=== PATIENT | female | born 1980 | race Caucasian/White ===

== ENCOUNTER 2021-09-16 07:34 | Outpatient (CLI) | payer OTHER, SELFPAY ==
--- NOTE | ~2021-09-16 | US_ITS ---
EXAMINATION: US abdomen limited DATE: 09/16/2021 08:09 INDICATION: Elevated liver enzymes TECHNIQUE: Multiple grayscale and Doppler ultrasound images of the abdomen were obtained. COMPARISON: None available FINDINGS: Bowel gas obscures visualization of the pancreas. The liver demonstrates increased echogeni city, heterogenous echotexture, and decreased through transmission. No surface nodularity. Normal hep atopetal flow in the main portal vein. The gallbladder is normal with no abnormal wall thickening, pe richolecystic fluid or stones. The normal common bile duct measures 4 mm. There was no sonographic Mu rphy sign. IMPRESSION: 1. Diffuse hepatic steatosis. Reviewed, dictated and finalized at location B. AR RACER
== END 2021-09-16 07:35 | disposition home or self-care (01) ==
LOC: ANHIMG 07:37
PROVIDERS: Visit Provider Nurse Practitioner Adult Health
DX: R74.01 Elevation of levels of liver transaminase levels (principal); K76.0 Fatty (change of) liver, not elsewhere classified
CPT/HCPCS: 76705

== ENCOUNTER 2022-05-03 16:36 | Emergency (ER) | payer OTHER, SELFPAY ==
--- NOTE | ~2022-05-03 | XR_ITS ---
XR foot LT min 3V DATE: 05/03/2022 16:52 INDICATION: Dorsal foot pain following a fall 5 days ago TECHNIQUE: 3 views COMPARISON: 02/26/2011 the left foot FINDINGS: There is mild plantar and posterior calcaneal enthesopathy. No fracture, dislocation, periosteal reaction or bone destruction, joint space narrowing or erosive c hange is noted. IMPRESSION: Calcaneal enthesopathy Reviewed, dictated and finalized at location A. IMPRESSION: Calcaneal enthesopathy
--- NOTE | 2022-05-03 16:38 | ED.LOWEXIN ---
HPI - Extremity Injury (Lower) General Chief Complaint: Extremity Injury, Lower Stated Complaint: lt foot injury Time Seen by Provider: 05/03/22 16:38 Source: patient and RN notes reviewed History of Present Illness HPI Narrative: Patient is a 41-year-old female who presents to urgent care with complaints of left foot pain. Patient states that over the weekend she rolled her foot curb while wearing a flip-flop and is having pain in the top of her foot. Patient denies any past fracture at that site or at home. Patient has not taken anything [id number] for her pain prior to arrival. States that the pain exacerbates with weight-bearing and ambulation. No other acute complaints. No acute distress noted. Patient aware of the plan of care. Some parts of this dictation were generated by voice recognition software and may contain typographical and/or grammatical inaccuracies. Related Data Home Medications Medication Instructions Recorded Confirmed alprazolam 0.5 mg tablet (Xanax) 0.5 mg PO DAILY 08/17/21 02/07/22 cetirizine 10 mg tablet 10 mg PO DAILY PRN 08/17/21 02/07/22 fenofibrate 160 mg tablet 160 mg PO DAILY 02/07/22 02/07/22 lisinopril 10 mg tablet 10 mg PO DAILY 02/07/22 02/07/22 pioglitazone 30 mg tablet 30 mg PO DAILY 02/07/22 02/07/22 atorvastatin 20 mg tablet 20 mg PO 04/18/22 dapagliflozin 5 mg tablet (Farxiga) 5 mg PO 04/18/22 omega-3 acid ethyl esters 1 gram cap PO 04/18/22 capsule Allergies Allergy/AdvReac Type Severity Reaction Status Date / Time No Known Allergies Allergy Unverified 04/18/22 10:11 Review of Systems Review of Systems: CONSTITUTIONAL: Denies fever, chills, or sweats. EYES: Denies visual changes, redness, or discharge. ENT: Denies rhinorrhea, congestion, sore throat, or otalgia. CARDIOVASCULAR: Denies chest pain, palpitations, or edema. RESPIRATORY: Denies cough or dyspnea. GASTROINTESTINAL: Denies abdominal pain, nausea, vomiting, or diarrhea. GENITOURINARY: Denies dysuria or hematuria. SKIN: Denies rash or itching. MUSCULOSKELETAL: Reports of left foot pain NEUROLOGIC: Denies headache, numbness, or weakness. All other systems reviewed are negative, except as documented in HPI. [facility] Past Medical History Medical History Anxiety Depression Diabetes High blood cholesterol Hypertension Insomnia Obesity (BMI 30-39.9) Screening mammogram, encounter for Tachycardia Surgical History Surgical History H/O LEEP 09/07/05 History of colposcopy with cervical biopsy 10/31/02 History of placement of ear tubes as a child Family History Family History Father Diabetes mellitus Other Diabetes mellitus paternal aunt Breast cancer paternal aunt Ovary neoplasm maternal aunt Grandparent Breast cancer maternal grandmother Social History Social History Smoking packs per day: 1 Smoking cigarettes per day: 20.0 Smoking status: Current every day smoker Alcohol intake: never Substance use: current Substance use type: marijuana Other substance usage details: ocassional Additional living arrangements comments: single Gender identity (if verbalized by the patient): Female Sexual Orientation (if Verbalized by the Patient): Straight or Heterosexual Comments At the time of my signature, I reviewed and agree with the nursing past medical, surgical, social, and family history. There is no relevant family history pertinent to the patient complaint. Exam Narrative: GENERAL: This is a well-nourished, well-developed patient, in no apparent distress. HEAD: normocephalic, atraumatic. EYES: PERRL. Sclera clear/white. Vision is grossly intact. EARS: External ears normal NOSE: External nose normal with no obvious nasal disc
[2022-05-03 16:59] VITALS: BP 118/77; PULSE 88; RESP 18; TEMP 36.9; O2SAT 100
== END 2022-05-03 17:21 | disposition home or self-care (01) ==
PROVIDERS: Emergency Provider Nurse Practitioner Family; PCP Nurse Practitioner Adult Health
DX: M79.672 Pain in left foot (principal); F17.210 Nicotine dependence, cigarettes, uncomplicated; E11.9 Type 2 diabetes mellitus without complications; E78.00 Pure hypercholesterolemia, unspecified; I10 Essential (primary) hypertension; E66.9 Obesity, unspecified; Z68.34 Body mass index [BMI] 34.0-34.9, adult; F41.9 Anxiety disorder, unspecified
CPT/HCPCS: 73630; 99213; G0463

== ENCOUNTER 2022-05-11 13:50 | Outpatient (CLI) | payer OTHER, SELFPAY | END 2022-05-11 13:51 | disposition home or self-care (01) | LOC: ANHAUDASC 13:50 | PROVIDERS: PCP Nurse Practitioner Adult Health; Visit Provider Otolaryngology | DX: H91.93 Unspecified hearing loss, bilateral (principal); H93.13 Tinnitus, bilateral | CPT/HCPCS: 92557; 92567 ==

== ENCOUNTER 2023-09-12 11:08 | Outpatient (CLI) | payer OTHER, SELFPAY ==
[2023-09-12 13:08] LABS: Basophils Absolute Auto 0.2 K/mm3 (0.0-0.1); Eosinophils Absolute Auto 0.3 K/mm3 (0-0.3); Eosinophils Percent Auto 4.1 % (0-4.4); Hematocrit 50.8 % (37.0-47.0); Hemoglobin 16.1 g/dL (12.0-15.0); Immature Granulocyte Absolute 0.03 K/mm3 (0.00-0.031); Immature Granulocyte Percent A 0.4 % (0-0.5); Lymphocytes Percent Auto 30.5 % (18.3-44.2); Mean Corpuscular HGB Conc 31.7 g/dl (32-36); Mean Corpuscular Hemoglobin 29.5 pg (26-34); Mean Platelet Volume 11.5 fl (7.4-10.4); Monocytes Absolute Auto 0.5 K/mm3 (0.1-0.6); Monocytes Percent Auto 5.6 % (2.6-8.5); Neutrophils Absolute Auto 4.7 K/mm3 (1.3-6.7); Neutrophils Percent Auto 57.4 % (45.5-73.1); Platelet Count Result 247 k/mm3 (150-375); Red Blood Count 5.46 M/mm3 (4.2-5.4); Red Cell Distribution Width 13.2 % (11.5-14.5); White Blood Count 8.2 K/mm3 (4.5-10.0)
[2023-09-12 13:11] LABS: Alanine Aminotransferase 17 U/L (6-35); Albumin Level 4.5 g/dL (3.5-5.1); Alkaline Phosphatase 72 U/L (38-126); Anion Gap 6 mmol/L (8-16); Aspartate Amino Transferase 43 U/L (14-36); Bilirubin,Total 0.5 mg/dL (0.2-1.3); Blood Urea Nitrogen 12 mg/dL (7-17); Calcium 9.5 mg/dL (8.4-10.2); Carbon Dioxide 28 mmol/L (22-30); Chloride 105 mmol/L (98-107); Cholesterol 156 mg/dL (0-200); Estimated Glomerular Filt Rate > 60; Glucose 118 mg/dL (65-110); HDL Direct 30 mg/dL; Potassium 4.2 mmol/L (3.4-5.0); Sodium 139 mmol/L (137-145); Triglycerides 178 mg/dL (<150)
[2023-09-12 13:23] LABS: LDL Cholesterol Direct 104 mg/dL
[2023-09-12 13:52] LABS: Creatinine Urine 96.6 mg/dL
[2023-09-12 13:59] LABS: MALB Creatinine Ratio 13.7 mg/g (0-30); Microalbumin Urine Random 13.2 mg/L (0-16.7)
[2023-09-12 14:52] LABS: Hemoglobin A1C 6.1 % (<5.7)
== END 2023-09-12 11:09 | disposition home or self-care (01) ==
LOC: ANHGOSHLAB 11:09
PROVIDERS: PCP Emergency Medicine; Visit Provider Emergency Medicine
DX: E11.69 Type 2 diabetes mellitus with other specified complication (principal); E66.9 Obesity, unspecified; K76.0 Fatty (change of) liver, not elsewhere classified; R68.89 Other general symptoms and signs
CPT/HCPCS: 36415; 80053; 80061; 82043; 83036; 84443; 85025

== ENCOUNTER 2023-11-16 09:33 | Emergency (ER) | payer OTHER, SELFPAY ==
[2023-11-16] VITALS (8 sets, daily range): BP systolic 132–144; BP diastolic 61–86; PULSE 86–97; RESP 16–18; TEMP 36.1; O2SAT 95–100
--- NOTE | ~2023-11-16 | CT_ITS ---
EXAMINATION: CTA BRAIN/CAROTID DATE: 11/16/2023 16:18 INDICATION: Headache, dizziness and photophobia. TECHNIQUE: Computed tomographic angiography (CTA) of the head and neck was performed with 100 mL Omni paque-350 intravenous contrast. Multiplanar reconstructions and maximum intensity projection 3D-recon structions of the carotid arteries and of the intracranial arteries were created by the technologist on a separate workstation. Precontrast CT of the head was also obtained. Automated exposure control and iterative reconstruction technique were employed.The dose-length product was 1778.49 mGy-cm. COMPARISON: None. FINDINGS: Carotid arteries: Ectatic ascending thoracic aorta measuring up to 4.2 cm in maximal diameter. Normal caliber at the ar ch and pelvis/proximal descending thoracic aorta with no dissection or evident atherosclerotic plaque . There is 0% stenosis of the right and left carotid bulbs relative to normal distal artery lumen tee meter (NASCET criteria). Diffuse groundglass opacities in the visualized upper lungs likely related t o expiratory phase of imaging. Cervical soft tissues are unremarkable. Cervical spine is unremarkable aside from straightening of the normal cervical lordosis. Head: No acute intracranial hemorrhage, acute infarction or abnormal extra axial fluid collection. Ventricl es are normal and symmetric. No mass/mass effect. Mucosal thickening of bubbly mucus in the left sphe noid sinus. The orbits and mastoid air cells are normal. No abnormally enhancing brain lesions on pos tcontrast imaging. Intracranial arteries There is no hemodynamically significant stenosis in the vertebral, basilar and internal carotid arter ies. Vertebral arteries are codominant. There are no aneurysms identified. Both A1 and P1 segments a re patent. Cerebral arterial arborization appears symmetric. IMPRESSION: 1. 0% stenosis of the right and left carotid bulbs relative to normal distal artery lumen diameter (N ASCET criteria). 2. Normal brain and cerebral CT angiogram with no evident acute intracranial process, aneurysm or hem odynamically significant stenosis. 3. Mucosal thickening of bubbly mucus in the left sphenoid sinus which can be seen with acute sinusit is. Reviewed, dictated and finalized at location A. IMPRESSION: 1. 0% stenosis of the right and left carotid bulbs relative to normal distal ar darius lumen diameter (NASCET criteria). 2. Normal brain and cerebral CT angiogram with no evident acute intracranial pr ocess, aneurysm or hemodynamically significant stenosis. 3. Mucosal thickening of bubbly mucus in the left sphenoid sinus which can be s een with acute sinusitis.
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
[2023-11-16] MEDS: SODIUM CHLORIDE 0.9% IV 1,000 ML 999 ML IV CONT (11:15)
[2023-11-16] MEDS: diphenhydrAMINE HCl INJ 50 MG/ML VIAL 25 MG IV PUSH (11:15)
[2023-11-16] MEDS: METOCLOPRAMIDE HCL INJ 10 MG/2 ML VIAL IV PUSH (11:16)
[2023-11-16] MEDS: KETOROLAC 30 MG/ML VIAL (*BKC) IV PUSH (11:16)
[2023-11-16] MEDS: MECLIZINE HCL 25 MG TABLET PO (13:40)
[2023-11-16 16:04] LABS: Estimated CRCL calculation 104 ml/min; Estimated Glomerular Filt Rate > 60
== END 2023-11-16 17:21 | disposition home or self-care (01) ==
PROVIDERS: Emergency Provider Emergency Medicine; PCP Emergency Medicine
DX: R51.9 Headache, unspecified (principal); J32.9 Chronic sinusitis, unspecified; I10 Essential (primary) hypertension; E11.9 Type 2 diabetes mellitus without complications; E78.00 Pure hypercholesterolemia, unspecified; E66.9 Obesity, unspecified; Z68.37 Body mass index [BMI] 37.0-37.9, adult; M19.90 Unspecified osteoarthritis, unspecified site; F41.9 Anxiety disorder, unspecified; F17.210 Nicotine dependence, cigarettes, uncomplicated
CPT/HCPCS: 70496; 70498; 96361; 96374; 96375; 99284; A9270; J1200; J1885; J2765; J7030; Q9967

== ENCOUNTER 2024-02-19 10:04 | Emergency (ER) | payer SELFPAY ==
[2024-02-19] VITALS (9 sets, daily range): BP systolic 124–148; BP diastolic 81–84; PULSE 74–87; RESP 15–18; TEMP 36.1–37.2; O2SAT 96–100
--- NOTE | 2024-02-19 10:42 | ED.GIBLEED ---
HPI - GI Bleed General Chief complaint: GI Bleed Stated complaint: black stools Time Seen by Provider: 02/19/24 10:33 History of Present Illness HPI Narrative: Pt presents with epigastric abdominal pain and passing black stools for two days. Pt denies vomiting. Pt started new job and is in hot environment and feels like she is dehydrated. Pt has no Hx of PUD. Related Data Home Medications Medication Instructions Recorded Confirmed alprazolam 0.5 mg tablet (Xanax) 0.5 mg PO DAILY 08/17/21 11/07/23 cetirizine 10 mg tablet 10 mg PO DAILY PRN 08/17/21 11/07/23 fenofibrate 160 mg tablet 160 mg PO DAILY 02/07/22 11/07/23 pioglitazone 30 mg tablet 30 mg PO DAILY 02/07/22 11/07/23 atorvastatin 20 mg tablet 20 mg PO 04/18/22 11/07/23 dapagliflozin propanediol 5 mg 5 mg PO 04/18/22 11/07/23 tablet (Farxiga) atomoxetine 80 mg capsule 80 mg PO DAILY 05/03/23 11/07/23 (Strattera) fluoxetine 60 mg tablet 30 mg PO DAILY 05/03/23 11/07/23 cariprazine 1.5 mg capsule 1.5 mg PO DAILY 06/26/23 11/07/23 (Vraylar) bupropion HCl 100 mg tablet,12 hr mg PO 11/03/23 11/07/23 sustained-release olanzapine 5 mg disintegrating mg PO 11/03/23 11/07/23 tablet trazodone 150 mg tablet mg PO 11/03/23 11/07/23 Allergies Allergy/AdvReac Type Severity Reaction Status Date / Time No Known Allergies Allergy Verified 02/19/24 10:49 Review of Systems Review of Systems: All systems reviewed & are unremarkable except as noted in HPI and below PMFSH Past Medical History Medical History Anxiety Arthritis Depression Diabetes High blood cholesterol Hypertension Insomnia Obesity (BMI 30-39.9) Screening mammogram, encounter for Tachycardia Surgical History Surgical History H/O LEEP 09/07/05 History of colposcopy with cervical biopsy 10/31/02 History of placement of ear tubes as a child Family History Family History Father Diabetes mellitus Other Diabetes mellitus paternal aunt Breast cancer paternal aunt Ovary neoplasm maternal aunt Grandparent Breast cancer maternal grandmother Mother Asthma Social History Social History 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 Smoking packs per day: 1 Smoking cigarettes per day: 20.0 Smoking status: Current every day smoker Tobacco type: cigarettes Alcohol intake: never Substance use: current Substance use type: marijuana Other substance usage details: ocassional Do You Feel Safe in your Home?: Yes Lack of Transportation: No Lack of Food: Never True Current Housing: I Have Housing Concerned About Future Housing: No Difficulty Paying Gas/Electric Bills: No Difficulty Paying for Meds: No Currently Unemployed: No Education: High School Diploma/GED Difficulty w/ Childcare or Family Care: No Living arrangements: other Additional living arrangements comments: single Occupation/Education: unemployed Gender identity (if verbalized by the patient): Female Sexual Orientation (if Verbalized by the Patient): Straight or Heterosexual Spiritual care concerns: No Agree to blood products: No Exam Const: General: healthy appearing and no acute distress Nutritional Appearance: obese Orientation/consciousness: patient oriented x3 Limitations: no limitations Resp: Effort & Inspection: normal respiratory effort Auscultation: clear to auscultation bilaterally Cardio: Rate: regular rate Rhythm: regular rhythm GI: GI Palp: Yes Soft to palpation and Yes Tenderness to palpation present (GI) (epigastrum) Auscultation: normal bowel sounds Rectal Exam: normal sphincter tone Other: heme neg Skin: General skin exam: normal color Rashes: no rashes Wounds: no wounds Neuro: Genera
[2024-02-19] MEDS: SODIUM CHLORIDE 0.9% IV 1,000 ML 999 ML IV CONT (10:59)
[2024-02-19] MEDS: PANTOPRAZOLE SODIUM IV 40 MG VIAL IV PUSH (11:00)
[2024-02-19 11:09] LABS: Basophils Absolute Auto 0.2 K/mm3 (0.0-0.1); Basophils Percent Auto 2.2 % (0.2-1.2); Eosinophils Absolute Auto 0.3 K/mm3 (0-0.3); Eosinophils Percent Auto 4.2 % (0-4.4); Hematocrit 44.7 % (37.0-47.0); Immature Granulocyte Absolute 0.02 K/mm3 (0.00-0.031); Immature Granulocyte Percent A 0.3 % (0-0.5); Lymphocytes Absolute Auto 3.12 K/mm3 (0.9-3.2); Lymphocytes Percent Auto 43.5 % (18.3-44.2); Mean Corpuscular HGB Conc 33.6 g/dl (32-36); Mean Corpuscular Hemoglobin 30.7 pg (26-34); Mean Corpuscular Volume 91.6 fl (80-100); Mean Platelet Volume 10.9 fl (7.4-10.4); Monocytes Absolute Auto 0.4 K/mm3 (0.1-0.6); Monocytes Percent Auto 5.4 % (2.6-8.5); Neutrophils Absolute Auto 3.2 K/mm3 (1.3-6.7); Neutrophils Percent Auto 44.4 % (45.5-73.1); Platelet Count Result 201 k/mm3 (150-375); Red Blood Count 4.88 M/mm3 (4.2-5.4); Red Cell Distribution Width 12.8 % (11.5-14.5); White Blood Count 7.2 K/mm3 (4.5-10.0)
[2024-02-19 11:22] LABS: Prothrombin Time 13.5 Seconds (11.1-14.7)
[2024-02-19 11:23] LABS: Alanine Aminotransferase 22 U/L (6-35); Albumin Level 4.8 g/dL (3.5-5.1); Alkaline Phosphatase 73 U/L (38-126); Anion Gap 11 mmol/L (4-12); Aspartate Amino Transferase 28 U/L (14-36); Bilirubin,Total 0.3 mg/dL (0.2-1.3); Blood Urea Nitrogen 11 mg/dL (7-17); Calcium 9.5 mg/dL (8.4-10.2); Carbon Dioxide 25 mmol/L (22-30); Chloride 104 mmol/L (98-107); Estimated CRCL calculation 112 ml/min; Estimated Glomerular Filt Rate > 60; Glucose 94 mg/dL (65-110); Lipase 213 U/L (23-300); Magnesium 1.9 mg/dL (1.6-2.3); Partial Thromboplastin Time 24.7 Seconds (22.3-36.8); Potassium 3.6 mmol/L (3.4-5.0); Sodium 140 mmol/L (137-145)
== END 2024-02-19 12:54 | disposition home or self-care (01) ==
PROVIDERS: Emergency Provider Emergency Medicine; PCP Emergency Medicine
DX: K29.70 Gastritis, unspecified, without bleeding (principal); I10 Essential (primary) hypertension; E11.9 Type 2 diabetes mellitus without complications; E78.00 Pure hypercholesterolemia, unspecified; E66.9 Obesity, unspecified; Z68.36 Body mass index [BMI] 36.0-36.9, adult; M19.90 Unspecified osteoarthritis, unspecified site; F32.A Depression, unspecified; F41.9 Anxiety disorder, unspecified; F17.210 Nicotine dependence, cigarettes, uncomplicated; Z79.899 Other long term (current) drug therapy
CPT/HCPCS: 36415; 80053; 83690; 83735; 85025; 85610; 85730; 86850; 86900; 86901; 96361; 96374; 99284; J2470; J7030

== ENCOUNTER 2024-03-19 13:58 | Emergency (ER) | payer SELFPAY ==
--- NOTE | ~2024-03-19 | CT_ITS ---
EXAMINATION: CT abdomen pelvis w con DATE: 03/19/2024 18:38 INDICATION: generalized abd and low back pain TECHNIQUE: Computed tomography (CT) of the abdomen and pelvis was performed with 100 mL Omnipaque-350 intravenous contrast. Automated exposure control and iterative reconstruction technique were employe d. The dose-length product was 1106.75 mGy-cm. COMPARISON: None. FINDINGS: Lower thorax: Unremarkable Liver: Enlarged. Biliary/Gallbladder: Gallbladder is normal. No bile duct dilation. Pancreas: Mild atrophy. Spleen: Normal. Adrenals:No mass. Kidneys: No suspicious mass, obstructing stone, or hydronephrosis. GI tract: No small or large bowel dilation. Normal appendix. Mesentery/Peritoneum: No ascites, mass, or free air. Retroperitoneum: No mass. Pelvis: Empty urinary bladder with wall thickening. Uterus and bilateral ovaries are within normal li mits. Soft Tissues: Soft tissues and body wall unremarkable. Small concave fat-containing of local hernia. Bones: No acute osseous finding. IMPRESSION: Hepatomegaly. Bladder wall thickening may be secondary to incomplete distention or cystitis, correlate with urinaly sis. Otherwise unremarkable CT abdomen and pelvis findings. Reviewed, dictated and finalized at location K. IMPRESSION: Hepatomegaly. Bladder wall thickening may be secondary to incomplete distention or cystitis, correlate with urinalysis. Otherwise unremarkable CT abdomen and pelvis findings.
[2024-03-19 14:00] VITALS: BP 149/79; PULSE 99; RESP 20; TEMP 36.4; O2SAT 99
--- NOTE | 2024-03-19 14:04 | ECG_ITS ---
Test Date: 2024-03-19 19:52:48 Measurements Intervals Line [place] Rate: 79 P: 34 NC: 170 QRS: 18 QRSD: 84 T: 48 QT: 392 QTc: 449 Interpretive Statements SINUS RHYTHM POSSIBLE LEFT ATRIAL ENLARGEMENT LOW QRS VOLTAGE IN LIMB LEADS BORDERLINE R WAVE PROGRESSION, ANTERIOR LEADS CONSIDER INFERIOR INFARCT, AGE INDETERMINATE BASELINE ARTIFACT- I, II, AVR ABNORMAL ECG No previous ECG available for comparison Electronically Signed On 03-20-2024 06:15:06 CDT by Anselmo Tejada D.O.
--- NOTE | 2024-03-19 14:05 | ED.ABDPAIN ---
HPI - Abdominal Pain General Chief Complaint: Abdominal Pain <Hollie Adams PA-C - Last Filed: 03/19/24 14:08> Stated Complaint: back pain, abdominal pain <Hollie Adams PA-C - Last Filed: 03/19/24 14:08> Time Seen by Provider: 03/19/24 19:46 <Hollie Adams PA-C - Last Filed: 03/19/24 14:08> Focused HPI: 43-year-old female with reported history of chronic back pain presents to the emergency department for abdominal pain and low back pain. Patient states the pain in her back seems worse which prompted her to come to the ED. States that she has generalized abdominal pain. She points throughout her entire abdomen and in her epigastrium when describing her pain. She states it is dull and sharp. Reports she was here a month ago and was diagnosed with gastritis. States the pain is been constant since. She denies nausea, vomiting, diarrhea, fever, dysuria hematuria, melena or hematochezia. She states the pain in her abdomen is worse when she ?squeezed?. States the pain in his back is worse when she goes over a bump, sneezes or coughs. She states she has not taken anything for pain. Denies bowel or bladder incontinence, urinary retention, saddle anesthesia. GENERAL: Well-appearing, well-nourished, and in no acute distress. HEAD: Normocephalic, atraumatic. CHEST: Clear to auscultation. ?No respiratory distress. ABD: Diffuse abdominal tenderness without rebound, guarding or rigidity. Abdomen is soft. BACK: Midline lumbar spinous tenderness with paraspinous muscle tenderness. No step offs, crepitus or deformities HEART: Regular rate and rhythm.? NEURO: ?Alert and oriented x3. Patient screened in triage and initial orders placed.? ?Additional care and disposition to be based upon?diagnostic testing and treatment. <Hollie Adams PA-C - Last Filed: 03/19/24 14:08> History of Present Illness HPI narrative: 43-year-old female with history of type 2 diabetes presented to the emergency department for vague abdominal and back pain. Endorses some discomfort, not associated with any movement or with food. No fevers, chills. No shortness of breath, chest pain. Was otherwise in her normal state of health. Agree with HPI is conducted by MLP above. <Elia Kennedy MD - Last Filed: 03/20/24 05:27> Related Data Home Medications: Home Medications Medication Instructions Recorded Confirmed alprazolam 0.5 mg tablet (Xanax) 0.5 mg PO DAILY 08/17/21 11/07/23 cetirizine 10 mg tablet 10 mg PO DAILY PRN 08/17/21 11/07/23 fenofibrate 160 mg tablet 160 mg PO DAILY 02/07/22 11/07/23 pioglitazone 30 mg tablet 30 mg PO DAILY 02/07/22 11/07/23 atorvastatin 20 mg tablet 20 mg PO 04/18/22 11/07/23 dapagliflozin propanediol 5 mg 5 mg PO 04/18/22 11/07/23 tablet (Farxiga) atomoxetine 80 mg capsule 80 mg PO DAILY 05/03/23 11/07/23 (Strattera) fluoxetine 60 mg tablet 30 mg PO DAILY 05/03/23 11/07/23 cariprazine 1.5 mg capsule 1.5 mg PO DAILY 06/26/23 11/07/23 (Vraylar) bupropion HCl 100 mg tablet,12 hr mg PO 11/03/23 11/07/23 sustained-release olanzapine 5 mg disintegrating mg PO 11/03/23 11/07/23 tablet trazodone 150 mg tablet mg PO 11/03/23 11/07/23 <Hollie Adams PA-C - Last Filed: 03/19/24 14:08> Allergies/Adverse Reactions: Allergies Allergy/AdvReac Type Severity Reaction Status Date / Time No Known Allergies Allergy Verified 02/19/24 10:49 <Hollie Adams PA-C - Last Filed: 03/19/24 14:08> Review of Systems Review of Systems: As reviewed above in HPI <Elia Kennedy MD - Last Filed: 03/20/24 05:27> PMFSH Past Medical History Medical History: Medical History Anxiety Arthritis Depression Diabetes High blood cholesterol Hypertension Insomnia Obesity (BMI 30-39.9) Screening mammogram, encounter for Tachycardia <Hollie Adams PA-C - Last Filed: 03/19/24 14:08>
[2024-03-19 14:16] LABS: Basophils Absolute Auto 0.2 K/mm3 (0.0-0.1); Basophils Percent Auto 1.7 % (0.2-1.2); Eosinophils Absolute Auto 0.3 K/mm3 (0-0.3); Eosinophils Percent Auto 2.7 % (0-4.4); Hematocrit 45.6 % (37.0-47.0); Hemoglobin 15.5 g/dL (12.0-15.0); Immature Granulocyte Absolute 0.02 K/mm3 (0.00-0.031); Immature Granulocyte Percent A 0.2 % (0-0.5); Lymphocytes Absolute Auto 3.69 K/mm3 (0.9-3.2); Lymphocytes Percent Auto 39.6 % (18.3-44.2); Mean Corpuscular Hemoglobin 30.9 pg (26-34); Mean Corpuscular Volume 90.8 fl (80-100); Mean Platelet Volume 10.8 fl (7.4-10.4); Monocytes Absolute Auto 0.6 K/mm3 (0.1-0.6); Monocytes Percent Auto 6.3 % (2.6-8.5); Neutrophils Absolute Auto 4.6 K/mm3 (1.3-6.7); Neutrophils Percent Auto 49.5 % (45.5-73.1); Platelet Count Result 188 k/mm3 (150-375); Red Blood Count 5.02 M/mm3 (4.2-5.4); Red Cell Distribution Width 12.6 % (11.5-14.5); White Blood Count 9.3 K/mm3 (4.5-10.0)
[2024-03-19 14:26] LABS: Alanine Aminotransferase 21 U/L (6-35); Albumin Level 4.7 g/dL (3.5-5.1); Alkaline Phosphatase 88 U/L (38-126); Anion Gap 10 mmol/L (4-12); Aspartate Amino Transferase 29 U/L (14-36); Bilirubin,Total 0.5 mg/dL (0.2-1.3); Blood Urea Nitrogen 9 mg/dL (7-17); Calcium 9.5 mg/dL (8.4-10.2); Carbon Dioxide 26 mmol/L (22-30); Chloride 101 mmol/L (98-107); Estimated CRCL calculation 101 ml/min; Estimated Glomerular Filt Rate > 60; Glucose 99 mg/dL (65-110); Lipase 76 U/L (23-300); Potassium 3.9 mmol/L (3.4-5.0); Sodium 137 mmol/L (137-145)
[2024-03-19 14:29] LABS: Prothrombin Time 13.2 Seconds (11.1-14.7)
[2024-03-19 14:38] LABS: Troponin I < 0.012 ng/mL (0.000-0.034)
[2024-03-19] MEDS: ACETAMINOPHEN 500 MG TABLET 1000 MG PO (17:53)
[2024-03-19] MEDS: CYCLOBENZAPRINE HCL 10 MG TABLET PO (17:53)
[2024-03-19] MEDS: LIDOCAINE 5% PATCH 1 PATCH TRANSDERM (17:53)
[2024-03-19 17:58] LABS: BEDSIDEPREGUCG Negative (Negative)
[2024-03-19 18:22] LABS: Add Urine Microscopic? YES; Appearance Urine Turbid (Clear); Bacteria Urine 4+ /hpf; Bilirubin Urine Negative (Negative); Blood Urine Negative (Negative); Color Urine Dark Yellow (Yellow); Glucose Urine UA Negative (Negative); Ketones Urine Negative (Negative); Leukocyte Esterase Ur 2+ LEU/UL (Negative); Need Manual Microscopic Reviewed; Nitrate Urine Negative (Negative); Non Pathogenic Casts 0-2; Protein Urine Trace mg/dL (Negative); Specific Grav Ur 1.023 (1.001-1.035); Squamous Epithelial Cell Urine Many /hpf (Few); WBC Urine >100 /hpf (0-3); pH Urine 6.5 (5.0-9.0)
[2024-03-19 19:51] VITALS: BP 131/78; PULSE 82; RESP 16; O2SAT 97
[2024-03-19] MEDS: cefTRIAXone 2 GM/NS 100 ML 2 GM/100 ML BAG IVPB (20:07)
[2024-03-19 22:58] VITALS: BP 137/76; PULSE 76; RESP 16; TEMP 36.6; O2SAT 98
== END 2024-03-19 22:59 | disposition home or self-care (01) ==
PROVIDERS: Physician Assistant; Emergency Provider Student in an Organized Health Care Education/Training Program; PCP Emergency Medicine
DX: N30.90 Cystitis, unspecified without hematuria (principal); I10 Essential (primary) hypertension; E11.9 Type 2 diabetes mellitus without complications; E78.00 Pure hypercholesterolemia, unspecified; E66.9 Obesity, unspecified; Z68.34 Body mass index [BMI] 34.0-34.9, adult; M19.90 Unspecified osteoarthritis, unspecified site; F41.9 Anxiety disorder, unspecified; F17.210 Nicotine dependence, cigarettes, uncomplicated; Z79.84 Long term (current) use of oral hypoglycemic drugs; Z79.899 Other long term (current) drug therapy; R16.0 Hepatomegaly, not elsewhere classified; R94.31 Abnormal electrocardiogram [ECG] [EKG]
CPT/HCPCS: 36415; 74177; 80053; 81001; 81025; 83690; 84484; 85025; 85610; 87086; 93005; 96365; 99284; A9270; J0696; Q9967

== ENCOUNTER 2024-04-09 15:20 | Emergency (ER) | payer SELFPAY ==
--- NOTE | ~2024-04-09 | XR_ITS ---
EXAMINATION: XR chest 2V Exam Date/Time: 04/09/2024 17:35 CDT HISTORY: epigastric pain Comparison: None. RESULT: Lines, tubes, and devices: None. Lungs and pleura: Mild mid and lower lung reticular opacities. No focal consolidation, pleural effus ion, or pneumothorax. Cardiomediastinal silhouette: Stable. Other: No acute osseous or upper abdominal finding. IMPRESSION: Mild interstitial edema. Reviewed, dictated and finalized at location K. IMPRESSION: Mild interstitial edema.
[2024-04-09 15:24] VITALS: BP 140/83; PULSE 76; RESP 16; TEMP 36.6; O2SAT 100
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
--- NOTE | 2024-04-09 17:30 | ECG_ITS ---
Test Date: 2024-04-09 22:00:47 Measurements Intervals [place] Rate: 72 P: 7 IL: 146 QRS: 27 QRSD: 98 T: 43 QT: 388 QTc: 427 Interpretive Statements SINUS RHYTHM FOR PROGRESSION ABNORMAL ECG Compared to ECG 03/19/2024 19:52:48 Myocardial infarct finding no longer present Electronically Signed On 04-10-2024 13:51:13 CDT by Vinny Parham M.D.
[2024-04-09 19:00] LABS: Basophils Absolute Auto 0.1 K/mm3 (0.0-0.1); Basophils Percent Auto 1.5 % (0.2-1.2); Eosinophils Absolute Auto 0.3 K/mm3 (0-0.3); Eosinophils Percent Auto 3.7 % (0-4.4); Hematocrit 44.6 % (37.0-47.0); Hemoglobin 15.1 g/dL (12.0-15.0); Immature Granulocyte Absolute 0.03 K/mm3 (0.00-0.031); Immature Granulocyte Percent A 0.3 % (0-0.5); Lymphocytes Absolute Auto 4.18 K/mm3 (0.9-3.2); Mean Corpuscular HGB Conc 33.9 g/dl (32-36); Mean Corpuscular Hemoglobin 30.9 pg (26-34); Mean Corpuscular Volume 91.2 fl (80-100); Mean Platelet Volume 10.7 fl (7.4-10.4); Monocytes Absolute Auto 0.6 K/mm3 (0.1-0.6); Monocytes Percent Auto 6.9 % (2.6-8.5); Neutrophils Absolute Auto 3.8 K/mm3 (1.3-6.7); Neutrophils Percent Auto 41.6 % (45.5-73.1); Platelet Count Result 198 k/mm3 (150-375); Red Blood Count 4.89 M/mm3 (4.2-5.4); Red Cell Distribution Width 12.7 % (11.5-14.5); White Blood Count 9.1 K/mm3 (4.5-10.0)
[2024-04-09 19:08] LABS: INR 1.1; Prothrombin Time 14.4 Seconds (11.1-14.7)
[2024-04-09 19:09] LABS: Bacteria Urine None Seen /hpf; Non Pathogenic Casts 0-2; Partial Thromboplastin Time 27.1 Seconds (22.3-36.8); Squamous Epithelial Cell Urine Few /hpf (Few); WBC Urine 0-5 /hpf (0-3)
[2024-04-09 19:10] LABS: Alanine Aminotransferase 18 U/L (6-35); Albumin Level 4.5 g/dL (3.5-5.1); Alkaline Phosphatase 84 U/L (38-126); Anion Gap 7 mmol/L (4-12); Aspartate Amino Transferase 23 U/L (14-36); Bilirubin,Total 0.7 mg/dL (0.2-1.3); Blood Urea Nitrogen 9 mg/dL (7-17); Calcium 9.2 mg/dL (8.4-10.2); Carbon Dioxide 26 mmol/L (22-30); Chloride 104 mmol/L (98-107); Estimated CRCL calculation 113 ml/min; Estimated Glomerular Filt Rate > 60; Glucose 94 mg/dL (65-110); Lipase 165 U/L (23-300); Potassium 3.3 mmol/L (3.4-5.0); Sodium 137 mmol/L (137-145)
[2024-04-09 19:19] LABS: Add Urine Microscopic? YES; Appearance Urine Clear (Clear); Bilirubin Urine Negative (Negative); Blood Urine Negative (Negative); Color Urine Yellow (Yellow); Glucose Urine UA Negative (Negative); Ketones Urine Negative (Negative); Leukocyte Esterase Ur Trace LEU/UL (Negative); Nitrate Urine Negative (Negative); Protein Urine Negative (Negative); Specific Grav Ur 1.021 (1.001-1.035); pH Urine 7.5 (5.0-9.0)
[2024-04-09 19:20] LABS: Troponin I < 0.012 ng/mL (0.000-0.034)
[2024-04-09 20:22] VITALS: BP 127/73; PULSE 83; RESP 20; TEMP 36.1; O2SAT 98
--- NOTE | 2024-04-09 22:38 | PC.NURSE ---
Per TARIK from provider Farrah this RN called lab and spoke with Aster to add a test onto the urine sample that was previously sent down
[2024-04-09] MEDS: LIDOCAINE 5% PATCH 1 PATCH TRANSDERM (22:51)
[2024-04-09] MEDS: KETOROLAC 30 MG/ML VIAL (*BKC) IM (22:51)
[2024-04-09] MEDS: POTASSIUM CHLORIDE 20 MEQ PACKET (FOR LIQUID) PO (22:51)
--- NOTE | 2024-04-09 22:53 | PC.NURSE ---
pt refused tylenol stating that doesn't do anything for me, just forget it , pt given PO potassium in water and drank some but states I don't know if I am going to drink all of this it is disgusting . Pt then says She better just release me after this. I ain't getting another CT scan
[2024-04-09 23:28] LABS: Pregnancy On Board Control Positive; Urine Pregnancy Test Negative
[2024-04-09 23:40] LABS: NT Pro B Type Natriuretic Pept < 20 pg/mL (19.9-100)
[2024-04-09 23:47] LABS: Troponin I < 0.012 ng/mL (0.000-0.034)
[2024-04-09 23:50] VITALS: BP 117/76; PULSE 81; RESP 15; O2SAT 99
== END 2024-04-10 00:25 | disposition home or self-care (01) ==
PROVIDERS: Physician Assistant; Emergency Provider Physician Assistant; PCP Emergency Medicine
DX: R10.9 Unspecified abdominal pain (principal); E87.6 Hypokalemia; M54.50 Low back pain, unspecified; G89.29 Other chronic pain; I10 Essential (primary) hypertension; E78.00 Pure hypercholesterolemia, unspecified; E66.9 Obesity, unspecified; Z68.34 Body mass index [BMI] 34.0-34.9, adult; M19.90 Unspecified osteoarthritis, unspecified site; F41.9 Anxiety disorder, unspecified; F32.A Depression, unspecified; F17.210 Nicotine dependence, cigarettes, uncomplicated; Z79.899 Other long term (current) drug therapy; J81.1 Chronic pulmonary edema
CPT/HCPCS: 36415; 71046; 80053; 81001; 81025; 83690; 83735; 83880; 84484; 85025; 85610; 85730; 93005; 96372; 99284; A9270; J1885

== ENCOUNTER 2024-05-03 09:48 | Outpatient (CLI) | payer OTHER, SELFPAY ==
--- NOTE | ~2024-05-03 | US_ITS ---
EXAMINATION: US pelvic complete w TV DATE: 05/03/2024 10:10 INDICATION: Abnormal uterine and vaginal bleeding. TECHNIQUE: Multiple transabdominal and transvaginal sonographic images of the pelvis were obtained. COMPARISON: CT abdomen and pelvis 03/19/2024 FINDINGS: TRANSABDOMINAL ULTRASOUND: The uterus measures 5.8 x 3.5 x 2.8 cm. There is physiologic free fluid in the pelvis. TRANSVAGINAL ULTRASOUND: The endometrial complex measures 3 mm in thickness. The right ovary measures 2.3 x 2.2 x 1.6 cm. The left ovary measures 2.3 x 1.2 x 1.3 cm. There is normal vascular flow in the ovaries. IMPRESSION: 1. Normal pelvis. Reviewed, dictated and finalized at location A. IMPRESSION: 1. Normal pelvis.
== END 2024-05-03 09:49 | disposition home or self-care (01) ==
PROVIDERS: PCP Obstetrics & Gynecology; Visit Provider Obstetrics & Gynecology
DX: N93.9 Abnormal uterine and vaginal bleeding, unspecified (principal)
CPT/HCPCS: 76830; 76856

== ENCOUNTER 2024-05-03 10:16 | Outpatient (CLI) | payer OTHER, SELFPAY ==
[2024-05-03 16:52] LABS: Basophils Absolute Auto 0.1 K/mm3 (0.0-0.1); Eosinophils Absolute Auto 0.3 K/mm3 (0-0.3); Eosinophils Percent Auto 3.9 % (0-4.4); Hematocrit 48.3 % (37.0-47.0); Hemoglobin 15.8 g/dL (12.0-15.0); Immature Granulocyte Absolute 0.01 K/mm3 (0.00-0.031); Immature Granulocyte Percent A 0.2 % (0-0.5); Lymphocytes Absolute Auto 2.16 K/mm3 (0.9-3.2); Lymphocytes Percent Auto 33.6 % (18.3-44.2); Mean Corpuscular HGB Conc 32.7 g/dl (32-36); Mean Corpuscular Hemoglobin 30.7 pg (26-34); Mean Corpuscular Volume 93.8 fl (80-100); Mean Platelet Volume 10.8 fl (7.4-10.4); Monocytes Absolute Auto 0.5 K/mm3 (0.1-0.6); Monocytes Percent Auto 7.3 % (2.6-8.5); Neutrophils Absolute Auto 3.4 K/mm3 (1.3-6.7); Platelet Count Result 214 k/mm3 (150-375); Red Blood Count 5.15 M/mm3 (4.2-5.4); Red Cell Distribution Width 12.8 % (11.5-14.5); White Blood Count 6.4 K/mm3 (4.5-10.0)
[2024-05-03 17:16] LABS: Vitamin D 25 Hydroxy 27.4 ng/mL
[2024-05-03 17:19] LABS: Alanine Aminotransferase 31 U/L (6-35); Albumin Level 4.8 g/dL (3.5-5.1); Alkaline Phosphatase 92 U/L (38-126); Anion Gap 13 mmol/L (4-12); Aspartate Amino Transferase 42 U/L (14-36); Bilirubin,Total 0.7 mg/dL (0.2-1.3); Blood Urea Nitrogen 7 mg/dL (7-17); Calcium 9.4 mg/dL (8.4-10.2); Carbon Dioxide 27 mmol/L (22-30); Chloride 99 mmol/L (98-107); Cholesterol 193 mg/dL (0-200); Estimated Glomerular Filt Rate > 60; Glucose 107 mg/dL (65-110); HDL Direct 40 mg/dL; Potassium 3.6 mmol/L (3.4-5.0); Sodium 139 mmol/L (137-145); Triglycerides 123 mg/dL (<150)
[2024-05-03 17:33] LABS: LDL Cholesterol Direct 121 mg/dL
[2024-05-03 17:38] LABS: Hemoglobin A1C 5.5 % (<5.7)
[2024-05-03 19:12] LABS: Free T4 Free Thyroxine Reflex 1.35 ng/dL (0.78-2.19)
== END 2024-05-03 10:17 | disposition home or self-care (01) ==
LOC: ANHGOSHLAB 10:17
PROVIDERS: PCP Obstetrics & Gynecology; Visit Provider Nurse Practitioner Family
DX: E11.9 Type 2 diabetes mellitus without complications (principal); Z13.0 Encounter for screening for diseases of the blood and blood-forming organs and certain disorders involving the immune mechanism; Z13.220 Encounter for screening for lipoid disorders; Z13.228 Encounter for screening for other metabolic disorders; Z13.29 Encounter for screening for other suspected endocrine disorder
CPT/HCPCS: 36415; 80053; 80061; 82306; 83036; 84439; 84443; 84480; 85025

== ENCOUNTER 2024-08-05 14:28 | Emergency (ER) | payer OTHER, SELFPAY ==
--- NOTE | ~2024-08-05 | XR_ITS ---
EXAMINATION: XR shoulder RT min 2V DATE: 08/05/2024 16:07 INDICATION: Right shoulder pain. TECHNIQUE: 4 views of right shoulder were obtained. COMPARISON: None. FINDINGS: Alignment is normal. No fracture. There is mild osteoarthritis of acromioclavicular clavicu lar joint. Glenohumeral joint is normal. IMPRESSION: 1. Mild acromioclavicular joint osteoarthritis. Reviewed, dictated and finalized at location A. NG SUPERVISOR
[2024-08-05 14:54] VITALS: BP 144/86; PULSE 86; RESP 18; TEMP 36.4; O2SAT 98
--- NOTE | 2024-08-05 15:47 | ED.WOUNDLAC ---
HPI - Wound/Laceration General Chief Complaint: Wound/Laceration Stated Complaint: Shoulder Pain Time Seen by Provider: 08/05/24 15:47 Source: patient Mode of arrival: ambulatory Limitations: no limitations History of Present Illness HPI narrative: 43 y/o female presented for c/o right shoulder pain for over one month. States she has chronic pain, and has not taken anything for it. Smokes marijuana, but it has not been helping as much. 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 Had been doing PT for her back, and often the arm exercises caused pain. Also states the pain has been worse since she received a stretch massage about 6 weeks ago. Related Data Home Medications ?Medication ?Instructions ?Recorded ?Confirmed ?Last Taken ?Type atomoxetine 80 mg capsule 80 mg PO DAILY 05/03/23 08/05/24 Unknown History (Strattera) fluoxetine 60 mg tablet 30 mg PO DAILY 05/03/23 08/05/24 Unknown History cariprazine 1.5 mg capsule 1.5 mg PO DAILY 06/26/23 08/05/24 Unknown History (Vraylar) bupropion HCl 100 mg tablet,12 hr 100 mg PO Q12H 11/03/23 08/05/24 Unknown History sustained-release olanzapine 5 mg disintegrating 5 mg PO QPM 11/03/23 08/05/24 Unknown History tablet trazodone 150 mg tablet 300 mg PO HS 11/03/23 08/05/24 Unknown History Allergies Allergy/AdvReac Type Severity Reaction Status Date / Time No Known Allergies Allergy Verified 08/05/24 14:53 Review of Systems Review of Systems: CONSTITUTIONAL: Denies body aches, fever, chills EYES: Denies visual changes ENT: Denies rhinorrhea, congestion CARDIOVASCULAR: Denies chest pain, palpitations, or edema. RESPIRATORY: Denies cough or dyspnea. GASTROINTESTINAL: Denies abdominal pain, nausea, vomiting, or diarrhea. SKIN: Denies rash, itching, or wounds. MUSCULOSKELETAL: reports right shoulder pain NEUROLOGIC: reports right arm numbness, tingling, weakness. PSYCH: Denies depression or anxiety. All systems reviewed & are unremarkable except as noted in HPI and below PMFSH Past Medical History Medical History Arthritis Screening mammogram, encounter for Obesity (BMI 30-39.9) Diabetes Insomnia Tachycardia Hypertension High blood cholesterol Depression Anxiety Surgical History Surgical History History of colposcopy with cervical biopsy 10/31/02 H/O LEEP 09/07/05 History of placement of ear tubes as a child Family History Family History Father Diabetes mellitus Other Diabetes mellitus paternal aunt Breast cancer paternal aunt Ovary neoplasm maternal aunt Grandparent Breast cancer maternal grandmother Mother Asthma Social History Social History 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 Smoking packs per day: 1 Smoking cigarettes per day: 20.0 Smoking status: Current every day smoker Tobacco type: cigarettes Alcohol intake: never Substance use: current Substance use type: marijuana Other substance usage details: ocassional Do You Feel Safe in your Home?: Yes Lack of Transportation: No Lack of Food: Never True Current Housing: I Have Housing Concerned About Future Housing: No Difficulty Paying Gas/Electric Bills: No Difficulty Paying for Meds: YES Currently Unemployed: No Education: High School Diploma/GED Difficulty w/ Childcare or Family Care: No Living arrangements: other Additional living arrangements comments: single Occupation/Education: occupation Additional occupation/education comments: [employer] Gender identity (if verbalized by the patient): Female Sexual Orientation (if Verbalized by the Patient): Straight or Heterosexual Spiritual care concerns: No Agree to blood products: No Comments At time of signature, I have reviewed and agree with nursing past medical, surgical, social and family history unless otherwise noted. Please see nursing chart for further information. There is no relevant family history pertinent to the presenting complaint Exam Narrative: GENERAL: Well-appearing CHEST: Speaks in full sentences. No respiratory distress. HEART: Regular rate and rhythm. Normal and equal peripheral pulses. EXTREMITIES: RUE has normal sensation, normal range of motion at shoulder, but endorses anterior shoulder pain with movement. Slightly decreased right automation sales manager strength. No ecchymosis. reports Right anterior shoulder tenderness with palpation, guarding the RUE. No open wounds or obvious deformity; alignment normal, pulse palpable and equal bilaterally, skin warm, dry, pink. Capillary refill less than 3 seconds. SKIN: Warm, dry NEURO: Alert and oriented x3. PSYCH: Normal mood and affect Course Course Emergency Course: Patient is aware of diagnosis, understands and agrees to treatment plan. Anticipatory guidance given. Patient agrees to follow-up as directed and is aware of reasons to seek care at the emergency department. Portions of this record may have been created with voice recognition software Level of Care: Express Care Visit Vital Signs Vital signs: Vital Signs Temperature 97.6 F 08/05/24 14:54 Pulse Rate 86 08/05/24 14:54 Respiratory Rate 18 08/05/24 14:54 Blood Pressure 144/86 H 08/05/24 14:54 Pulse Oximetry 98 08/05/24 14:54 Oxygen Delivery Room Air 08/05/24 14:54 Temperature 97.6 F 08/05/24 14:54 Pulse Rate 86 08/05/24 14:54 Respiratory Rate 18 08/05/24 14:54 Blood Pressure 144/86 H 08/05/24 14:54 Pulse Oximetry 98 08/05/24 14:54 Oxygen Delivery Room Air 08/05/24 14:54 Reviewed MDM - Wound/Laceration MDM Narrative Medical decision making narrative: Discussed physical exam findings and xray. Advised supportive measures and signs/symptoms to go to the ER. Pt states she does not want any medications, but seems resistant to supportive measures and says she cannot do PT. Pt is appropriate for outpt treatment and f/u. Differential Diagnosis Differential diagnosis: Likely other (Shoulder dislocation, clavicle fracture, humerus fracture, scapular fracture, acromioclavicular joint injury, rotator cuff tear, bicep tendon rupture, tricep tendon rupture) Imaging Data Radiologist's impression: Patient: Natacha Romero : 1980 MR#: [id number] Age: 43 Acct:[id number] Loc: [id number] ADM Date: 08/05/24Attending Dr: Ordering Physician: Cynthia Mera APRN Date of Service: 08/05/24 Procedure(s): XR shoulder RT min 2V Accession Number(s): [id number] cc: Cynthia Mera APRN; EMAIL DEPLOYMENT SPECIALIST PHYSICIAN~ EXAMINATION: XR shoulder RT min 2V DATE: 08/05/2024 16:07 INDICATION: Right shoulder pain. TECHNIQUE: 4 views of right shoulder were obtained. COMPARISON: None. FINDINGS: Alignment is normal. No fracture. There is mild osteoarthritis of acromioclavicular clavicular joint. Glenohumeral joint is normal. IMPRESSION: 1. Mild acromioclavicular joint osteoarthritis. Discharge Plan Discharge Clinical Impression: Acute pain of right shoulder Patient Disposition: Home, Self-Care Condition: Stable Instructions: Shoulder Pain (ED) Additional Instructions: Rest. Avoid pushing, pulling, lifting or anything that worsens the symptoms Tylenol 1000mg every 8 hours as needed You can alternate with ibuprofen 600mg Alternate ice/heat to the site. Lidocaine or salon pas pain patch or use pain cream like icy/hot or biofreeze. Follow up with your primary care provider as needed in 1 week Go to the ER for worsening symptoms or concerns Patient Language: Vietnamese Prescriptions: No Action bupropion HCl 100 mg tablet sustained-release 12 hr 100 mg PO Q12H trazodone 150 mg tablet 300 mg PO HS olanzapine 5 mg tablet,disintegrating 5 mg PO QPM atomoxetine [Strattera] 80 mg capsule 80 mg PO DAILY fluoxetine 60 mg tablet 30 mg PO DAILY Vraylar 1.5 mg capsule 1.5 mg PO DAILY oxybutynin chloride 10 mg tablet extended release 24hr 10 mg PO DAILY Qty: 90 3RF lidocaine 5 % adhesive patch,medicated 1 patch topical DAILY Qty: 15 0RF Rx Instructions: leave on most painful area for up to 12 hrs. do not use more than 1 patch in a 24-hour period. Follow-up/Referrals: PHYSICIAN,EMAIL DEPLOYMENT SPECIALIST [Primary Care Provider] - Stand Alone Forms: Work/School Release IP Time of Disposition: 16:20
== END 2024-08-05 16:26 | disposition home or self-care (01) ==
PROVIDERS: Emergency Provider Nurse Practitioner Family
DX: M25.511 Pain in right shoulder (principal); F17.210 Nicotine dependence, cigarettes, uncomplicated; F12.90 Cannabis use, unspecified, uncomplicated; E11.9 Type 2 diabetes mellitus without complications; I10 Essential (primary) hypertension; E78.00 Pure hypercholesterolemia, unspecified; M19.90 Unspecified osteoarthritis, unspecified site; E66.9 Obesity, unspecified; Z68.33 Body mass index [BMI] 33.0-33.9, adult; F41.9 Anxiety disorder, unspecified; F32.A Depression, unspecified
CPT/HCPCS: 73030; 99213; G0463

== ENCOUNTER 2024-11-12 11:39 | Emergency (ER) | payer OTHER, SELFPAY ==
--- NOTE | ~2024-11-12 | XR_ITS ---
3 VIEWS LUMBAR SPINE Ordering provider: Keiry Russell NP History: . lumbar back pain . Comparison: None. FINDINGS: VERTEBRAL BODIES: No visible fracture or subluxation. Degenerative changes of the spine. DISK SPACES: Narrowing of the disc L4-L5 and L5-S1. SOFT TISSUES: Normal. IMPRESSION: No acute osseous abnormality lumbar spine. Multilevel degenerative disc disease. Reviewed, dictated and finalized at location A.
[2024-11-12 12:15] VITALS: BP 131/74; PULSE 89; RESP 16; TEMP 36.4; O2SAT 99
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
== END 2024-11-12 14:11 | disposition home or self-care (01) ==
PROVIDERS: Emergency Provider Registered Nurse
DX: M54.50 Low back pain, unspecified (principal); F17.210 Nicotine dependence, cigarettes, uncomplicated; F12.90 Cannabis use, unspecified, uncomplicated; E11.9 Type 2 diabetes mellitus without complications; I10 Essential (primary) hypertension; E78.00 Pure hypercholesterolemia, unspecified; M19.90 Unspecified osteoarthritis, unspecified site; E66.9 Obesity, unspecified; Z68.31 Body mass index [BMI] 31.0-31.9, adult; F41.9 Anxiety disorder, unspecified; F32.A Depression, unspecified
CPT/HCPCS: 72100; 99213; G0463

== ENCOUNTER 2025-02-05 06:53 | Outpatient (CLI) | payer MEDICAID, SELFPAY ==
--- NOTE | ~2025-02-05 | MR_ITS ---
EXAMINATION: MR brain/brain stem wo/w con DATE: 02/05/2025 08:23 INDICATION: Memory loss, back pain and right shoulder pain TECHNIQUE: Magnetic resonance imaging (MRI) of the brain and brainstem was performed without and with 19 mL Multihance intravenous contrast. Sequences included sagittal and axial T1-weighted SE, axial d iffusion-weighted FS SE, axial 3D SWAN, axial T2-weighted FLAIR, and axial T2-weighted FSE. Postcontr ast axial and coronal T1-weighted SE was obtained. Apparent diffusion coefficient (ADC) maps were cre ated. COMPARISON: None. FINDINGS: There are no areas of restricted diffusion to suggest acute infarction. No intracranial hemorrhage or abnormal intracranial mass lesion. There are a few tiny scattered foci of nonspecific increased T2-w eighted signal intensity in the cerebral white matter which remains within normal limits for age. The re are no intraparenchymal signal abnormalities seen on the other pulse sequences. The ventricles are symmetric and normal in size. There are no abnormal extra-axial fluid collections. Flow voids are se en in the cerebral arteries on the T2-weighted sequences consistent with their expected patency. Visu alized orbits are normal. Mild mucosal thickening in the bilateral ethmoid and right maxillary sinuse s. There is an indeterminate 2.7 x 2.1 cm T2 hyperintense enhancing mass centered at the right nasoph arynx appearing to arise from the region of the palatine tonsil. There are no intracranial areas of a bnormal enhancement on the post contrast images. IMPRESSION: 1. Normal for age brain with no acute intracranial process. 2. 2.7 x 2.1 cm enhancing mass centered in the region of the right palatine tonsil which raises tripp rn for neoplasm, particularly squamous cell carcinoma. Recommend ENT consultation. Reviewed, dictated and finalized at location A. IMPRESSION: 1. Normal for age brain with no acute intracranial process. 2. 2.7 x 2.1 cm enhancing mass centered in the region of the right palatine ton annamarie which raises concern for neoplasm, particularly squamous cell carcinoma. Re commend ENT consultation.
--- NOTE | ~2025-02-05 | MR_ITS ---
MRI of the right shoulder Technique: Axial proton-density fat-sat images, coronal proton density fat-sat and T2 fat-sat images, and sagittal T1-weighted and T2 fat-sat images were acquired. Clinical History: Pain Findings: There is mild AC joint degenerative change. Coracoclavicular, coracoacromial, and coracohum eral ligaments are intact. Supraspinatus and infraspinatus tendons are intact, with mild to moderate tendinosis, but no partial or full-thickness tear. Subscapularis tendon is intact. Tendon of the long head of the biceps is inta ct. No labral tear evident. Inferior glenohumeral ligament is intact. No significant joint effusion at the glenohumeral joint. Th ere is mild fluid distention of the subacromial/subdeltoid bursa. No muscle atrophy or edema. Impression: Moderate supraspinatus and infraspinatus tendinosis. Minimal subacromial/subdeltoid bursitis. Reviewed, dictated and finalized at [facility] [place]. Impression: Moderate supraspinatus and infraspinatus tendinosis. Minimal subacromial/subdeltoid bursitis.
--- NOTE | ~2025-02-05 | MR_ITS ---
MRI of the lumbar spine Clinical History: Back pain Technique: Axial T2-weighted images, and sagittal T1-weighted, T2-weighted, and and T2 fat-sat images were acquired. Findings: There is no fracture or subluxation of lumbar spine. Vertebral bodies maintain normal heigh t and alignment. No bone marrow signal abnormality seen. At L1-L2 and L2-L3, intervertebral discs maintain normal signal and position. No disc bulge or hernia tion at these levels. There is mild facet arthropathy. No central canal stenosis or neural foraminal narrowing at these levels. At L3-L4, there is minimal disc desiccation bulge, with mild to moderate facet hypertrophy. No spinal canal stenosis or neural foraminal narrowing. At L4-L5, there is moderate degenerative distended. There is disc bulge with superimposed small centr al disc protrusion. There is mild facet arthropathy. No central canal stenosis or neural foraminal na rrowing. At L5-S1, there is no disc bulge or herniation. There is mild facet arthropathy. No central canal mandy nosis or neural foraminal narrowing. Paravertebral soft tissues are unremarkable. Impression: Mild degenerative spondylosis overall, worst at L4-L5. Please see details above. Reviewed, dictated and finalized at [facility]. Impression: Mild degenerative spondylosis overall, worst at L4-L5. Please see details above .
--- OUTSIDE RECORDS SUMMARY | 2025-02-05 06:56 | XMS_ITS | Patient Health Record ---
Author Organization [facility] Address [address] [place] [address] Care Team Providers Care Driver/Merchandiser Name Role Phone Tish Guzman Primary Care Provider [phone] Ameya Emily Unavailable [phone] Megha Steele Unavailable [phone] Jose Maria Huber Unavailable [phone] Allergies No Known Allergies Results Component Value Reference Range Notes Hemoglobin A1c* Reviewed date:05/15/2024 01:23:46 PM Interpretation:Normal Performing Lab: Notes/Report: Normal CBC With Differential/Platel et* Reviewed date:05/15/2024 01:32:36 PM Interpretation:Abnormal Performing Lab: Notes/Report: Abnormal CMP 14 Comprehensive Metabol ic Panel* Reviewed date:05/15/2024 01:32:36 PM Interpretation:Abnormal Performing Lab: Notes/Report: Abnormal Lipid Panel* Reviewed date:05/15/2024 01:32:36 PM Interpretation:Normal Performing Lab: Notes/Report: Normal Vitamin D, 25-Hydroxy* Reviewed date:05/15/2024 01:32:36 PM Interpretation:Low Performing Lab: Notes/Report: Low TSH Rfx on Abnormal to Free T4 Reviewed date:05/15/2024 01:32:36 PM Interpretation:Abnormal Performing Lab: Notes/Report: Abnormal T3 Uptake* Reviewed date:05/20/2024 11:20:54 AM Interpretation:Normal Performing Lab:[facility], [address] [facility] [place], Phone - [phone], Director - Anaya Notes/Report: Test(s) 127812- Atopobium vaginae; 885762- BVAB 2; 147910- Megasphaera 1 was developed and its performance characteristics determined by [facility]. It has not been cleared or approved by the Food and Drug Administration. Test(s) 798374-Fecrhnr albicans, KAVITHA; 329998-Qplujto glabrata, KAVITHA was developed and its performance characteristics determined by [facility]. It has not been cleared or approved by the Food and Drug Administration. T3 Uptake 25 24-39 % TSH Rfx on Abnormal to Free T4 Reviewed date:05/20/2024 11:20:55 AM Interpretation:Normal [facility]forming [facility], [address] [place] [address], Phone - [phone], Director - [facility] Notes/Report: Test(s) 248316- Atopobium vaginae; 268465- BVAB 2; 584025- Megasphaera 1 was developed and its performance characteristics determined by [facility]. It has not been cleared or approved by the Food and Drug Administration. Test(s) 138831-Xzfvvtz albicans, KAVITHA; 459019-Pkcjvxu glabrata, KAVITHA was developed and its performance characteristics determined by [facility]. It has not been cleared or approved by the Food and Drug Administration. TSH 2.080 0.450-4.500 uIU/mL Urine Culture, Routine* Reviewed date:05/20/2024 11:20:54 AM Interpretation:Normal [facility]forming [facility], [address] [place] [address], Phone - [phone], Director - [facility] Notes/Report: Test(s) 073761- Atopobium vaginae; 498590- BVAB 2; 556924- Megasphaera 1 was developed and its performance characteristics determined by [facility]. It has not been cleared or approved by the Food and Drug Administration. Test(s) 774629-Gejlidt albicans, KAVITHA; 286707-Vrkssdr glabrata, KAVITHA was developed and its performance characteristics determined by [facility]. It has not been cleared or approved by the Food and Drug Administration. Test(s) 017180- Atopobium vaginae; 365885- BVAB 2; 728327- Megasphaera 1 was developed and its performance characteristics determined by [facility]. It has not been cleared or approved by the Food and Drug Administration. Test(s) 597629-Bbjgadq albicans, KAVITHA; 498261-Jhmqgzo glabrata, KAVITHA was developed and its performance characteristics determined by [facility]. It has not been cleared or approved by the Food and Drug Administration. Urine Culture, Routine Final report Result 1 Mixed urogenital hang 10,000-25,000 colony forming units per mL C-Reactive Protein, Quant Reviewed date:05/20/2024 11:20:54 AM Interpretation:Normal Performing Lab:[facility] [place], [address] [place] [address], Phone - [phone], Director - [facility] Notes/Report: Test(s) 327243- Atopobium vaginae; 298160- BVAB 2; 327355- Megasphaera 1 was developed and its performance characteristics determined by [facility]. It has not been cleared or approved by the Food and Drug Administration. Test(s) 734892-Zftpevx albicans, KAVITHA; 858179-Dzlvmle glabrata, KAVITHA was developed and its performance characteristics determined by [facility]. It has not been cleared or approved by the Food and Drug Administration. C-Reactive Protein, Quant 1 0-10 mg/L Urinalysis In-House, Routine Reviewed date:05/14/2024 02:43:30 PM Interpretation: Performing Lab: Notes/Report: Leukocytes trace Nitrite, Urine neg Urobilinogen,Semi-Qn 0.2 Protein neg pH 6.5 Occult Blood neg Specific [place] 1.025 Ketones neg Bilirubin neg Glucose neg NuSwab Vaginitis Plus (VG+) (022933) Reviewed date:05/20/2024 11:20:54 AM Interpretation:Abnormal Performing Lab:[facility] [place], [address] [place] [address], Phone - [phone], [facility] Notes/Report: Test(s) 608939- Atopobium vaginae; 755583- BVAB 2; 305127- Megasphaera 1 was developed and its performance characteristics determined by [facility]. It has not been cleared or approved by the Food and Drug Administration. Test(s) 893599-Yaedkhy albicans, KAVITHA; 132058-Luyqtvn glabrata, KAVITHA was developed and its performance characteristics determined by [facility]. It has not been cleared or approved by the Food and Drug Administration. Atopobium vaginae Moderate - 1 BVAB 2 High - 2 Megasphaera 1 High - 2 Calculate total score by adding the 3 individual bacterial vaginosis (BV) marker scores together. Total score is interpreted as follows: Total score 0-1: Indicates the absence of BV. Total score 2: Indeterminate for BV. Additional clinical data should be evaluated to establish a diagnosis. Total score 3-6: Indicates the presence of BV. Paulina albicans, KAVITHA Negative Negative Paulina glabrata, KAVITHA Negative Negative Trich vag by KAVITHA Negative Negative Chlamydia trachomatis, KAVITHA Negative Negative Neisseria gonorrhoeae, KAVITHA Negative Negative Reason For Referral Reason Neurology, Memory Co ncerns Diagnosis 1 Memory impairment (R 41.3) Referral Organization [facility] Referring Provider First Name Emily Referring Provider Last Name Ameya Referring Provider Speciality Psychiatry Referred Provider Specialty Neurology General Notes Emily Hou 03:42:42 PM > Client has always struggled with memory concerns. Reports dementia runs in the family. Struggles currently with memory. Please refer. Clinical Notes Zuleyka Farooq RN 12/2023 07:26:37 AM >Referral sent to [facility] in [place]. Referral Priority Routine Reason evaluate/treat chron ic subscapular pain/low back pain Diagnosis 1 Chronic pain (G89.29 ) Referral Organization [facility] Referring Provider First Name Tish Referring Provider Last Name Thomas Referring Provider [facility] Med icimable Referred Provider Specialty Physical The rapist General Notes ENEDELIA Hussein, Elli Soriano 05/01/2024 01:58:48 PM >referral faxed. Confirmation pending., Bari MCDANIELS, Corinne Leach 05/07/2024 02:46:07 PM > See TE.Steve Melanie D 05/09/2024 11:38:31 AM >Refaxed referral, referral letter, & message sent to client.Steve Melanie D 05/14/2024 02:30:05 PM >Client requested for her PT referral to be sent to [facility] in [facility]. Referral faxed to [phone] Melanie D 05/14/2024 02:39:08 PM >Referral letter given to client while in office.Steve Melanie D 01/07/2025 04:27:11 PM >Some notations in clients chart that she had done some PT at [facility]. Left a message for [facility] to fax over PT consult notes to [facility]. Clinical Notes [facility], [address], [place] [address], , Referral Priority Routine Medications Medication SIG (Take, Route, Frequency, Duration) Notes Start Date End Date Status Atomoxetine HCl 80 mg TAKE 1 CAPSULE BY MOUTH EVERY MORNING; Duration: 14 Approval until 01/14/26 Active buPROPion HCl ER (XL) 150 MG TAKE 1 TABLET BY MOUTH EVERY DAY AT MORNING FOR 30 DAYS 90 DAYS; Duration: 90 Active Atorvastatin Calcium 20 MG TAKE 1 TABLET BY MOUTH EVERYDAY AT BEDTIME Oral; Duration: 90 Days Unknown oxyBUTYnin Chloride ER 10 MG Oral; Duration: 90 Days Active Fenofibrate 160 MG TAKE 1 TABLET BY MOUTH EVERYDAY AT BEDTIME Oral; Duration: 90 Days Unknown Lidocaine 5 % 1 patch remove after 12 hours Externally Once a day; Duration: 5 days 5 Active Meloxicam 7.5 MG 1 tablet Orally Once a day; Duration: 30 days As needed for pain 5 Active Pioglitazone HCl 30 MG 1 tablet Orally O nce a day; Duration: 30 day(s) Unknown Cyclobenzaprine HCl 10 MG 1 tablet at bedtime as needed Orally Once a day; Duration: 30 days As needed 5 Active Strattera 100 MG 1 capsule in the morning Orally Once a day; Duration: 90 days Unknown buPROPion HCl ER (SR) 100 MG 1 tablet Orally Once a day; Duration: 90 days in the morning Unknown Lidocaine 5 % APPLY 1 PATCH TO SKIN DAILY LEAVE ON MOST PAINFUL AREA FOR UP TO 12 HRS. MAX 1 PATCH IN 24HR PERIOD External; Duration: 15 Days Active medroxyPROGESTERone Acetate 150 MG/ML 150 MG INTRAMUSCULARLY EVERY 3 MONTHS Intramuscular; Duration: 90 Days Unknown Vitamin E 400 UNIT 1 capsule Orally Once a day; Duration: 30 day(s) 2 Active Farxiga 5 MG 1 tablet Orally Once a day; Duration: 30 day(s) Unknown buPROPion HCl ER (XL) 300 MG 1 tablet in the morning Orally Once a day; Duration: 30 days Active Depo-Provera Not-Eitan ing Pilocarpine HCl 5 MG 1 tablet Orally Three times a day; Duration: 30 days please CAF Active fluvoxaMINE Maleate 100 MG as directed Orally One tablet in the morning AND Two tablets at night; Duration: 30 days Active ZyPREXA Zydis 5 MG 0.5-1 tablet on the tongue and allow to dissolve Orally Once a day; Duration: 30 days Active Vraylar 6 MG 1 capsule Orally Every other day; Duration: 30 days Active Strattera 80 MG 1 capsule in the morning Orally Once a day; Duration: 30 days Active traZODone HCl 150 mg TAKE 2 TABLETS BY MOUTH EVERY NIGHT AT BEDTIME NEEDED; Duration: 28 Active fluvoxaMINE Maleate 100 mg TAKE 1 TABLET BY MOUTH EVERY MORNING AND TAKE 2 TABLETS EVERY NIGHT; Duration: 28 Active traZODone HCl 150 MG 2 tablets at bedtim e as needed Orally Once a day; Duration: 30 days Active Pilocarpine HCl 5 mg TAKE 1 TABLET BY MOUTH THREE TIMES A DAY; Duration: 30 Active metroNIDAZOLE 500 MG 1 tablet Orally Twice daily; Duration: 7 days 4 Unknown Vraylar 3 MG Oral; Duration: 30 Days Unknown Ondansetron 4 MG 1 tablet on the tongue and allow to dissolve Orally Once a day; Duration: 30 days 5 Active Atomoxetine HCl 80 MG 1 capsule in the morning Orally Once a day; Duration: 30 day(s) 5 Active Social History Tobacco Use: Social History Observation Description Date Details (start date - stop date) Current Smoker 1980 - NA Sex Assigned At : Social History Observation Description Sex Assigned At Female PRAPARE Question Answer Notes Date Completed/Updated: 05/22/2024 What is your current housing situation? I have h ousing Are you worried about losing your housing? No What is the highest level of school that you have finished? More than high school What is your current work situation? [employer] In the past year, have you o r any family members you live with been unable to get any of the following when it was really needed? Check all that apply Medicine or any health care (medical, dental, mental health or vision) Has lack of transportation k ept you from medical appointments, meetings, work or from getting things needed for daily living? No How often do you see or talk to people that you care about and feel close to? (For example: talking to friends on the phone, visiting friends or family, going to mu-ism or club meetings) I choose not to answer this question How stressed are you? Stress is when someone feels tense, nervous, anxious, or can\t sleep at night because their mind is troubled Very much In the past year have you sp ent more than 2 nights in a row in a long-term, snf, chcf center, or juvenile correctional facility? No Are you a refugee? Yes What country are you from? [place] Do you feel physically and e motionally safe where you currently live? Yes In the past year, have you b een afraid of your partner or ex-partner? I have not had a partner in the past year PRAPARE Score: 5 Tobacco Control (Standard) Question Answer Notes Tobacco use: Current smoker When did you start smoking? 1980 How often do you smoke cigarettes? Every day How many cigarettes a day do you smoke? 11-20 How soon after you wake up do you smoke your fir st cigarette? 31-60 minutes Are you interested in quitting? Not ready to stephanie t Problems Problem Type SNOMED Code ICD Code Onset Dates Problem Status W/U Status Risk Notes Problem Tobacco user (531079565) Nicotine dependence, unspecified, uncomplicated (F17.200) Active confirmed Problem Generalized anxiety disorder (00168339) Generalized anxiety disorder (F41.1) Active confirmed Problem Borderline personality disorder (12065487) Borderline personality disorder (F60.3) Active confirmed Problem Sleep disorder (53435528) Sleep disorder, unspecified (G47.9) Active confirmed Problem Attention deficit hyperactivity disorder, predominantly inattentive type (disorder) (26491503) Attention and concentration deficit (R41.840) Active confirmed Problem Mood disorder (05191023) Mood disorder (F39) Active confirmed r/o bipolar vs severe episode of MDD Problem Chronic pain (17634546) Chronic pain (G89.29) Active confirmed Problem Overweight (591423904) Over weight (E66.3) Active confirmed Problem Diabetes mellitus (27683625) Diabetes mellitus (E11.9) Active confirmed Problem Laboratory test result abnormal (176681448) Abnormal laboratory test result (R89.9) Active confirmed Problem Memory impairment (378612034) Memory impairment (R41.3) Active confirmed Problem Bipolar disorder (07471027) Bipolar depression (F31.9) Active confirmed Vital Signs Heart Rate 80 /min 01/14/2025 Temperature 97.9 degrees Fahrenheit 01/14/2025 Respiratory Rate 18 /min 01/14/2025 Blood pressure diastolic 58 mm Hg 01/14/2025 Oximetry 98 % 01/14/2025 Height 68 in 01/14/2025 Blood pressure systolic 118 mm Hg 01/14/2025 Weight 194.8 lbs 01/14/2025 BMI 29.62 kg/m2 01/14/2025 Encounters Encounter Location Date Provider Diagnosis [facility] [address] [place] [address] 04/23/2024 Emily Hou Borderline personali ty disorder F60.3 ; Bipolar depression F31.9 ; Generalized anxiety disorder F41.1 ; Sleep disorder, unspecified G47.9 ; Nutritional counseling Z71.3 ; Attention and concentration deficit R41.840 and Memory impairment R41.3 [facility] [address] [place] [address] 04/30/2024 Tish Guzman [facility] care wi new doctor, encounter for Z71.89 ; Diabetes mellitus E11.9 ; Screening for deficiency anemia Z13.0 ; Screening for metabolic disorder Z13.228 ; Screening for thyroid disorder Z13.29 ; Screening for hyperlipidemia Z13.220 and Chronic pain G89.29 [facility] [place] [address] 05/14/2024 Tish Guzman Symptoms of urinary tract infection R39.9 ; Abnormal laboratory test result R89.9 ; Chronic pain G89.29 ; Vaginal discharge N89.8 ; Abdominal pain, acute R10.9 ; Chest pain at rest R07.9 and Diabetes mellitus E11.9 [facility] [place] [address] 05/21/2024 Emily Hou Borderline personali ty disorder F60.3 ; Bipolar depression F31.9 ; Generalized anxiety disorder F41.1 ; Sleep disorder, unspecified G47.9 ; Attention and concentration deficit R41.840 ; Memory impairment R41.3 and Nutritional counseling Z71.3 [facility] [place] [address] 06/04/2024 Emily Hou Borderline personali ty disorder F60.3 ; Bipolar depression F31.9 ; Generalized anxiety disorder F41.1 ; Sleep disorder, unspecified G47.9 ; Attention and concentration deficit R41.840 ; Memory impairment R41.3 and Nutritional counseling Z71.3 [facility] [place] [address] 06/18/2024 Emily Hou Nutritional counseli ng Z71.3 ; Borderline personality disorder F60.3 ; Bipolar depression F31.9 ; Generalized anxiety disorder F41.1 ; Sleep disorder, unspecified G47.9 ; Attention and concentration deficit R41.840 and Memory impairment R41.3 [place] [address] [place] [address] 08/06/2024 Emily Hou Nutritional counseli ng Z71.3 ; Borderline personality disorder F60.3 ; Bipolar depression F31.9 ; Generalized anxiety disorder F41.1 ; Sleep disorder, unspecified G47.9 ; Attention and concentration deficit R41.840 and Memory impairment R41.[address] [place] [address] 08/07/2024 Tish Guzman Nutritional counseli ng Z71.3 ; Shoulder pain, right M25.511 ; Nicotine dependence, unspecified, uncomplicated F17.200 and Chronic pain G89.29 [facility] [place] [address] 08/20/2024 Emily Hou Nutritional counseli ng Z71.3 ; Borderline personality disorder F60.3 ; Bipolar depression F31.9 ; Generalized anxiety disorder F41.1 ; Sleep disorder, unspecified G47.9 ; Attention and concentration deficit R41.840 and Memory impairment R41.3 [place] [address] [place] [address] 08/29/2024 Tish Short Shoulder pain, right M25.511 ; Follow-up exam Z09 and Chronic pain G89.29 [place] [address] [place] [address] 09/17/2024 Emily Hou Nutritional counseli ng Z71.3 ; Borderline personality disorder F60.3 ; Bipolar depression F31.9 ; Generalized anxiety disorder F41.1 ; Sleep disorder, unspecified G47.9 ; Attention and concentration deficit R41.840 and Memory impairment R41.3 [facility] [place] [address] 09/24/2024 Emily Hou Nutritional counseli ng Z71.3 ; Nicotine dependence, unspecified, uncomplicated F17.200 ; Borderline personality disorder F60.3 ; Bipolar depression F31.9 ; Generalized anxiety disorder F41.1 ; Sleep disorder, unspecified G47.9 ; Attention and concentration deficit R41.840 and Memory impairment R41.3 [facility] [place] [address] 10/08/2024 Emily Ameya Over weight E66.3 ; Nutritional counseling Z71.3 ; Nicotine dependence, unspecified, uncomplicated F17.200 ; Borderline personality disorder F60.3 ; Bipolar depression F31.9 ; Generalized anxiety disorder F41.1 ; Sleep disorder, unspecified G47.9 ; Attention and concentration deficit R41.840 and Memory impairment R41.3 [place] [address] [facility] [place] [address] 10/22/2024 Emily Hou Over weight E66.3 ; Nutritional counseling Z71.3 ; Nicotine dependence, unspecified, uncomplicated F17.200 ; Borderline personality disorder F60.3 ; Bipolar depression F31.9 ; Generalized anxiety disorder F41.1 ; Sleep disorder, unspecified G47.9 ; Attention and concentration deficit R41.840 and Memory impairment R41.3 [facility] [place] [address] 11/05/2024 Emily Ameya Over weight E66.3 ; Nutritional counseling Z71.3 ; Nicotine dependence, unspecified, uncomplicated F17.200 ; Borderline personality disorder F60.3 ; Bipolar depression F31.9 ; Generalized anxiety disorder F41.1 ; Sleep disorder, unspecified G47.9 ; Attention and concentration deficit R41.840 and Memory impairment R41.[address] [place] [address] 11/27/2024 Emilycele Hou Over weight E66.3 ; Nutritional counseling Z71.3 ; Nicotine dependence, unspecified, uncomplicated F17.200 ; Borderline personality disorder F60.3 ; Bipolar depression F31.9 ; Generalized anxiety disorder F41.1 ; Sleep disorder, unspecified G47.9 ; Attention and concentration deficit R41.840 and Memory impairment R41.3 [facility] [address] [place], [place] [address] [address] 12/10/2024 Emily Reidan Over weight E66.3 ; Nutritional counseling Z71.3 ; Nicotine dependence, unspecified, uncomplicated F17.200 ; Borderline personality disorder F60.3 ; Bipolar depression F31.9 ; Generalized anxiety disorder F41.1 ; Sleep disorder, unspecified G47.9 ; Attention and concentration deficit R41.840 and Memory impairment R41.3 [facility] [place] [address] 01/14/2025 Emily Calderonnnan Over weight E66.3 ; Nutritional counseling Z71.3 ; Nicotine dependence, unspecified, uncomplicated F17.200 ; Borderline personality disorder F60.3 ; Bipolar depression F31.9 ; Generalized anxiety disorder F41.1 ; Sleep disorder, unspecified G47.9 ; Attention and concentration deficit R41.840 and Memory impairment R41.[address] [place] [address] 05/06/2024 Tish Guzman [address] [place] [address] 05/09/2024 Tish Guzman [address] [place] [address] 05/13/2024 Emily Hou [address] [place] [address] 05/15/2024 Tish Guzman [address] [place] [address] 05/20/2024 Tish Guzman Vaginitis N76.[address] [address] 05/23/2024 Tish Thomas [address] [address] 06/24/2024 Emilycele Hou [address] [address] 07/30/2024 Emily Hou [address] [address] 08/28/2024 Tish Guzman [facility] [address] [address] 09/10/2024 Jose Maria Huber [address] [address] 11/21/2024 Emily Hou Bipolar depression F31.9 and Attention and concentration deficit R41.[address] [address] 11/22/2024 Emily Hou [address] [address] 11/25/2024 [facility] [address] [address] 01/14/2025 Emily Hou Assessments Encounter Date Diagnosis (ICD Code) Assessment Notes Treatment Notes Treatment Clinical Notes Section Notes 10/22/2024 Over weight (ICD-10 - E66.3) 05/14/2024 Abnormal laboratory test result (ICD-10 - R89.9) 04/23/2024 Borderline personality disorder (ICD-10 - F60.3) Strongly encouraged therapy/counseling. 05/14/2024 Symptoms of urinary tract infection (ICD-10 - R39.9) 11/27/2024 Over weight (ICD-10 - E66.3) 11/05/2024 Over weight (ICD-10 - E66.3) 10/08/2024 Over weight (ICD-10 - E66.3) 09/24/2024 Nutritional counseling (ICD-10 - Z71.3) 09/17/2024 Nutritional counseling (ICD-10 - Z71.3) 08/29/2024 Shoulder pain, right (ICD-10 - M25.511) 08/29/2024 Follow-up exam (ICD-10 - Z09) 08/20/2024 Nutritional counseling (ICD-10 - Z71.3) 08/07/2024 Shoulder pain, right (ICD-10 - M25.511) 08/07/2024 Nutritional counseling (ICD-10 - Z71.3) 08/06/2024 Nutritional counseling (ICD-10 - Z71.3) 06/18/2024 Nutritional counseling (ICD-10 - Z71.3) 06/04/2024 Borderline personality disorder (ICD-10 - F60.3) Strongly encouraged therapy/counseling. 05/21/2024 Borderline personality disorder (ICD-10 - F60.3) Strongly encouraged therapy/counseling. 06/04/2024 Bipolar depression (ICD-10 - F31.9) Small increase in bupropion as also on Strattera. Increased for depression, motivation, energy. Discussed r/b/se. 05/21/2024 Bipolar depression (ICD-10 - F31.9) 05/20/2024 Vaginitis (ICD-10 - N76.0) 04/30/2024 Diabetes mellitus (ICD-10 - E11.9) 04/30/2024 Establishing care with new doctor, encounter for (ICD-10 - Z71.89) 01/14/2025 Over weight (ICD-10 - E66.3) 12/10/2024 Over weight (ICD-10 - E66.3) 11/21/2024 Bipolar depression (ICD-10 - F31.9) 11/21/2024 Attention and concentration deficit (ICD-10 - R41.840) 12/10/2024 Nutritional counseling (ICD-10 - Z71.3) 01/14/2025 Nutritional counseling (ICD-10 - Z71.3) 04/30/2024 Screening for deficiency anemia (ICD-10 - Z13.0) 06/04/2024 Generalized anxiety disorder (ICD-10 - F41.1) Take as prescribed. Reviewed purpose (mood stability), benefits, and risks - low blood pressure, metabolic syndrome with high cholesterol or high blood sugars, change in cardiac conduction, nausea, vomiting, temporary or permanent movement disorders, and akathisia. 05/21/2024 Generalized anxiety disorder (ICD-10 - F41.1) Discussed r/b/se of treatment plan. 08/07/2024 Nicotine dependence, unspecified, uncomplicated (ICD-10 - F17.200) 08/06/2024 Borderline personality disorder (ICD-10 - F60.3) Strongly encouraged therapy/counseling. 06/18/2024 Borderline personality disorder (ICD-10 - F60.3) Strongly encouraged therapy/counseling. 08/29/2024 Chronic pain (ICD-10 - G89.29) 08/20/2024 Borderline personality disorder (ICD-10 - F60.3) Strongly encouraged therapy/counseling. 09/24/2024 Nicotine dependence, unspecified, uncomplicated (ICD-10 - F17.200) 09/17/2024 Borderline personality disorder (ICD-10 - F60.3) Strongly encouraged therapy/counseling. 10/08/2024 Nutritional counseling (ICD-10 - Z71.3) 11/05/2024 Nutritional counseling (ICD-10 - Z71.3) 11/27/2024 Nutritional counseling (ICD-10 - Z71.3) 04/23/2024 Bipolar depression (ICD-10 - F31.9) Continue SR, had insomnia with XL, discussed paranoia vs anxiety. Encouraged therapy. 05/14/2024 Chronic pain (ICD-10 - G89.29) 10/22/2024 Nutritional counseling (ICD-10 - Z71.3) 10/22/2024 Nicotine dependence, unspecified, uncomplicated (ICD-10 - F17.200) 05/14/2024 Vaginal discharge (ICD-10 - N89.8) 04/23/2024 Generalized anxiety disorder (ICD-10 - F41.1) Discussed r/b/se of treatment plan. 11/27/2024 Nicotine dependence, unspecified, uncomplicated (ICD-10 - F17.200) 11/05/2024 Nicotine dependence, unspecified, uncomplicated (ICD-10 - F17.200) 10/08/2024 Nicotine dependence, unspecified, uncomplicated (ICD-10 - F17.200) 09/24/2024 Borderline personality disorder (ICD-10 - F60.3) Strongly encouraged therapy/counseling. 09/17/2024 Bipolar depression (ICD-10 - F31.9) [place] agreement to continue current regimen. 08/07/2024 Chronic pain (ICD-10 - G89.29) 08/20/2024 Bipolar depression (ICD-10 - F31.9) [place] agreement to continue current regimen. 05/21/2024 Sleep disorder, unspecified (ICD-10 - G47.9) 06/04/2024 Sleep disorder, unspecified (ICD-10 - G47.9) 06/18/2024 Bipolar depression (ICD-10 - F31.9) [place] agreement to continue current regimen. 08/06/2024 Bipolar depression (ICD-10 - F31.9) [place] agreement to continue current regimen. 04/30/2024 Screening for metabolic disorder (ICD-10 - Z13.228) 12/10/2024 Nicotine dependence, unspecified, uncomplicated (ICD-10 - F17.200) 01/14/2025 Nicotine dependence, unspecified, uncomplicated (ICD-10 - F17.200) 01/14/2025 Borderline personality disorder (ICD-10 - F60.3) Strongly encouraged therapy/counseling. Continue current regimen with addition of lamotrigine to further target depressive symptoms. 12/10/2024 Borderline personality disorder (ICD-10 - F60.3) Strongly encouraged therapy/counseling. Continue current regimen with addition of lamotrigine to further target depressive symptoms. 04/30/2024 Screening for thyroid disorder (ICD-10 - Z13.29) 06/18/2024 Generalized anxiety disorder (ICD-10 - F41.1) Take as prescribed. Reviewed purpose (mood stability), benefits, and risks - low blood pressure, metabolic syndrome with high cholesterol or high blood sugars, change in cardiac conduction, nausea, vomiting, temporary or permanent movement disorders, and akathisia. 06/04/2024 Attention and concentration deficit (ICD-10 - R41.840) 05/21/2024 Attention and concentration deficit (ICD-10 - R41.840) 08/20/2024 Generalized anxiety disorder (ICD-10 - F41.1) Take as prescribed. Reviewed purpose (mood stability), benefits, and risks - low blood pressure, metabolic syndrome with high cholesterol or high blood sugars, change in cardiac conduction, nausea, vomiting, temporary or permanent movement disorders, and akathisia. 08/06/2024 Generalized anxiety disorder (ICD-10 - F41.1) Take as prescribed. Reviewed purpose (mood stability), benefits, and risks - low blood pressure, metabolic syndrome with high cholesterol or high blood sugars, change in cardiac conduction, nausea, vomiting, temporary or permanent movement disorders, and akathisia. 09/24/2024 Bipolar depression (ICD-10 - F31.9) [place] agreement to continue current regimen. 09/17/2024 Generalized anxiety disorder (ICD-10 - F41.1) Take as prescribed. Reviewed purpose (mood stability), benefits, and risks - low blood pressure, metabolic syndrome with high cholesterol or high blood sugars, change in cardiac conduction, nausea, vomiting, temporary or permanent movement disorders, and akathisia. 10/08/2024 Borderline personality disorder (ICD-10 - F60.3) Strongly encouraged therapy/counseling. Continue current regimen. Noted anhedonia, may look to decrease Luvox at next appt. Client want to give current regimen more time, continue. 11/05/2024 Borderline personality disorder (ICD-10 - F60.3) Strongly encouraged therapy/counseling. Continue current regimen with addition of lamotrigine to further target depressive symptoms. 11/27/2024 Borderline personality disorder (ICD-10 - F60.3) Strongly encouraged therapy/counseling. Continue current regimen with addition of lamotrigine to further target depressive symptoms. 05/14/2024 Abdominal pain, acute (ICD-10 - R10.9) 04/23/2024 Sleep disorder, unspecified (ICD-10 - G47.9) 10/22/2024 Borderline personality disorder (ICD-10 - F60.3) Strongly encouraged therapy/counseling. Continue current regimen with addition of lamotrigine to further target depressive symptoms. 10/22/2024 Bipolar depression (ICD-10 - F31.9) Begin Lamotrigine as prescribed. Reviewed purpose (mood stability, reduce depression, and help with irritability), benefits, and risks - including sedation, nausea, rash - benign or serious. A serious rash could cause shedding of all skin and even become fatal. Stop taking medication immediately if a rash occurs and seek emergency care. Notify our office as well. If you ever miss 4 or more consecutive days of taking this medication, please let the office know. The prescriber may need to restart this medication at 25 mg daily and titrate up as tolerated. 05/14/2024 Chest pain at rest (ICD-10 - R07.9) 04/23/2024 Nutritional counseling (ICD-10 - Z71.3) 11/27/2024 Bipolar depression (ICD-10 - F31.9) lamotrigine with rash- stop may look to add other mood stabilizer if needed 11/05/2024 Bipolar depression (ICD-10 - F31.9) Increase Lamotrigine as prescribed. Reviewed purpose (mood stability, reduce depression, and help with irritability), benefits, and risks - including sedation, nausea, rash - benign or serious. A serious rash could cause shedding of all skin and even become fatal. Stop taking medication immediately if a rash occurs and seek emergency care. Notify our office as well. If you ever miss 4 or more consecutive days of taking this medication, please let the office know. The prescriber may need to restart this medication at 25 mg daily and titrate up as tolerated. 10/08/2024 Bipolar depression (ICD-10 - F31.9) [place] agreement to continue current regimen. 09/24/2024 Generalized anxiety disorder (ICD-10 - F41.1) Take as prescribed. Reviewed purpose (mood stability), benefits, and risks - low blood pressure, metabolic syndrome with high cholesterol or high blood sugars, change in cardiac conduction, nausea, vomiting, temporary or permanent movement disorders, and akathisia. 09/17/2024 Sleep disorder, unspecified (ICD-10 - G47.9) 08/20/2024 Sleep disorder, unspecified (ICD-10 - G47.9) 06/18/2024 Sleep disorder, unspecified (ICD-10 - G47.9) 08/06/2024 Sleep disorder, unspecified (ICD-10 - G47.9) 05/21/2024 Memory impairment (ICD-10 - R41.3) 06/04/2024 Memory impairment (ICD-10 - R41.3) 04/30/2024 Screening for hyperlipidemia (ICD-10 - Z13.220) 01/14/2025 Bipolar depression (ICD-10 - F31.9) may look to add other mood stabilizer if needed lamotrigine with rash- stopped 12/10/2024 Bipolar depression (ICD-10 - F31.9) may look to add other mood stabilizer if needed lamotrigine with rash- stopped 12/10/2024 Generalized anxiety disorder (ICD-10 - F41.1) Take as prescribed. Reviewed purpose (mood stability), benefits, and risks - low blood pressure, metabolic syndrome with high cholesterol or high blood sugars, change in cardiac conduction, nausea, vomiting, temporary or permanent movement disorders, and akathisia. 01/14/2025 Generalized anxiety disorder (ICD-10 - F41.1) Take as prescribed. Reviewed purpose (mood stability), benefits, and risks - low blood pressure, metabolic syndrome with high cholesterol or high blood sugars, change in cardiac conduction, nausea, vomiting, temporary or permanent movement disorders, and akathisia. 06/04/2024 Nutritional counseling (ICD-10 - Z71.3) 05/21/2024 Nutritional counseling (ICD-10 - Z71.3) 04/30/2024 Chronic pain (ICD-10 - G89.29) 08/06/2024 Attention and concentration deficit (ICD-10 - R41.840) 06/18/2024 Attention and concentration deficit (ICD-10 - R41.840) 08/20/2024 Attention and concentration deficit (ICD-10 - R41.840) 09/17/2024 Attention and concentration deficit (ICD-10 - R41.840) Increase bupropion and decrease strattera for depression. Discussed r/b/se. 09/24/2024 Sleep disorder, unspecified (ICD-10 - G47.9) 10/08/2024 Generalized anxiety disorder (ICD-10 - F41.1) Take as prescribed. Reviewed purpose (mood stability), benefits, and risks - low blood pressure, metabolic syndrome with high cholesterol or high blood sugars, change in cardiac conduction, nausea, vomiting, temporary or permanent movement disorders, and akathisia. 11/05/2024 Generalized anxiety disorder (ICD-10 - F41.1) Take as prescribed. Reviewed purpose (mood stability), benefits, and risks - low blood pressure, metabolic syndrome with high cholesterol or high blood sugars, change in cardiac conduction, nausea, vomiting, temporary or permanent movement disorders, and akathisia. 11/27/2024 Generalized anxiety disorder (ICD-10 - F41.1) Take as prescribed. Reviewed purpose (mood stability), benefits, and risks - low blood pressure, metabolic syndrome with high cholesterol or high blood sugars, change in cardiac conduction, nausea, vomiting, temporary or permanent movement disorders, and akathisia. 05/14/2024 Diabetes mellitus (ICD-10 - E11.9) 04/23/2024 Attention and concentration deficit (ICD-10 - R41.840) 04/23/2024 Memory impairment (ICD-10 - R41.3) 10/22/2024 Generalized anxiety disorder (ICD-10 - F41.1) Take as prescribed. Reviewed purpose (mood stability), benefits, and risks - low blood pressure, metabolic syndrome with high cholesterol or high blood sugars, change in cardiac conduction, nausea, vomiting, temporary or permanent movement disorders, and akathisia. 10/22/2024 Sleep disorder, unspecified (ICD-10 - G47.9) 11/27/2024 Sleep disorder, unspecified (ICD-10 - G47.9) 11/05/2024 Sleep disorder, unspecified (ICD-10 - G47.9) 10/08/2024 Sleep disorder, unspecified (ICD-10 - G47.9) 09/24/2024 Attention and concentration deficit (ICD-10 - R41.840) Discussed r/b/se. 09/17/2024 Memory impairment (ICD-10 - R41.3) 08/20/2024 Memory impairment (ICD-10 - R41.3) 06/18/2024 Memory impairment (ICD-10 - R41.3) 08/06/2024 Memory impairment (ICD-10 - R41.3) 01/14/2025 Sleep disorder, unspecified (ICD-10 - G47.9) 12/10/2024 Sleep disorder, unspecified (ICD-10 - G47.9) 12/10/2024 Attention and concentration deficit (ICD-10 - R41.840) Discussed r/b/se. 01/14/2025 Attention and concentration deficit (ICD-10 - R41.840) Discussed r/b/se. 09/24/2024 Memory impairment (ICD-10 - R41.3) 10/08/2024 Attention and concentration deficit (ICD-10 - R41.840) Discussed r/b/se. 11/05/2024 Attention and concentration deficit (ICD-10 - R41.840) Discussed r/b/se. 11/27/2024 Attention and concentration deficit (ICD-10 - R41.840) Discussed r/b/se. 10/22/2024 Attention and concentration deficit (ICD-10 - R41.840) Discussed r/b/se. 10/22/2024 Memory impairment (ICD-10 - R41.3) Continue f/u with PCP and monitoring symptoms. Client denies concerns today. 11/27/2024 Memory impairment (ICD-10 - R41.3) Continue f/u with PCP and monitoring symptoms. Client denies concerns today. 11/05/2024 Memory impairment (ICD-10 - R41.3) Continue f/u with PCP and monitoring symptoms. Client denies concerns today. 10/08/2024 Memory impairment (ICD-10 - R41.3) 01/14/2025 Memory impairment (ICD-10 - R41.3) monitor, continue f/u with PCP 12/10/2024 Memory impairment (ICD-10 - R41.3) Working to get insurance situated, plan for referral to neuro again once able. Client v/u and agreement. Declines referral at this time. 04/23/2024 Other Reasons, potential benefits, potential risks, interactions and side effects of all medications were discussed. The Patient/Guardian asked appropriate questions, appeared to understand the answers, and decided to accept the treatment and continue being followed. Alternatives and expected course without treatment were reviewed. The Patient/Guardian is aware of the need to contact the office or return for an earlier appointment if any problems or concerns arise. May also contact the 24-hour crisis hotline ([facility]), refer to the closest emergency room or call 911 if new symptoms arise of existing symptoms worsen. The Patient/Guardian is aware that this would apply to symptoms like: suicidal ideation, homicidal ideation, high risk behaviors, manic symptoms, psychotic symptoms, physical symptoms, or any other symptoms that may be dangerous to self or others. Greater than 50% of time spent on coordination and counseling where psychopharmacology as well as psychotherapeutic interventions were discussed along with review of treatments in the past. Education provided concerning need for adequate hydration. Patient/Guardian verbalized understanding of education, treatment plan and follow up. 05/21/2024 Other Reasons, potential benefits, potential risks, interactions and side effects of all medications were discussed. The Patient/Guardian asked appropriate questions, appeared to understand the answers, and decided to accept the treatment and continue being followed. Alternatives and expected course without treatment were reviewed. The Patient/Guardian is aware of the need to contact the office or return for an earlier appointment if any problems or concerns arise. May also contact the 24-hour crisis hotline ([facility]), refer to the closest emergency room or call 911 if new symptoms arise of existing symptoms worsen. The Patient/Guardian is aware that this would apply to symptoms like: suicidal ideation, homicidal ideation, high risk behaviors, manic symptoms, psychotic symptoms, physical symptoms, or any other symptoms that may be dangerous to self or others. Greater than 50% of time spent on coordination and counseling where psychopharmacology as well as psychotherapeutic interventions were discussed along with review of treatments in the past. Education provided concerning need for adequate hydration. Patient/Guardian verbalized understanding of education, treatment plan and follow up. 06/04/2024 Other Reasons, potential benefits, potential risks, interactions and side effects of all medications were discussed. The Patient/Guardian asked appropriate questions, appeared to understand the answers, and decided to accept the treatment and continue being followed. Alternatives and expected course without treatment were reviewed. The Patient/Guardian is aware of the need to contact the office or return for an earlier appointment if any problems or concerns arise. May also contact the 24-hour crisis hotline ([facility]), refer to the closest emergency room or call 911 if new symptoms arise of existing symptoms worsen. The Patient/Guardian is aware that this would apply to symptoms like: suicidal ideation, homicidal ideation, high risk behaviors, manic symptoms, psychotic symptoms, physical symptoms, or any other symptoms that may be dangerous to self or others. Greater than 50% of time spent on coordination and counseling where psychopharmacology as well as psychotherapeutic interventions were discussed along with review of treatments in the past. Education provided concerning need for adequate hydration. Patient/Guardian verbalized understanding of education, treatment plan and follow up. 06/18/2024 Other Reasons, potential benefits, potential risks, interactions and side effects of all medications were discussed. The Patient/Guardian asked appropriate questions, appeared to understand the answers, and decided to accept the treatment and continue being followed. Alternatives and expected course without treatment were reviewed. The Patient/Guardian is aware of the need to contact the office or return for an earlier appointment if any problems or concerns arise. May also contact the 24-hour crisis hotline ([facility]), refer to the closest emergency room or call 911 if new symptoms arise of existing symptoms worsen. The Patient/Guardian is aware that this would apply to symptoms like: suicidal ideation, homicidal ideation, high risk behaviors, manic symptoms, psychotic symptoms, physical symptoms, or any other symptoms that may be dangerous to self or others. Greater than 50% of time spent on coordination and counseling where psychopharmacology as well as psychotherapeutic interventions were discussed along with review of treatments in the past. Education provided concerning need for adequate hydration. Patient/Guardian verbalized understanding of education, treatment plan and follow up. 08/06/2024 Other Client reports she has not been taking medications regularly, continue at current doses, client states she will work on taking medications as prescribed, daily, and does not want to make further changes at this time. Therapy encouraged. F/u in 2 weeks for monitoring. Reasons, potential benefits, potential risks, interactions and side effects of all medications were discussed. The Patient/Guardian asked appropriate questions, appeared to understand the answers, and decided to accept the treatment and continue being followed. Alternatives and expected course without treatment were reviewed. The Patient/Guardian is aware of the need to contact the office or return for an earlier appointment if any problems or concerns arise. May also contact the 24-hour crisis hotline ([facility]), refer to the closest emergency room or call 911 if new symptoms arise of existing symptoms worsen. The Patient/Guardian is aware that this would apply to symptoms like: suicidal ideation, homicidal ideation, high risk behaviors, manic symptoms, psychotic symptoms, physical symptoms, or any other symptoms that may be dangerous to self or others. Greater than 50% of time spent on coordination and counseling where psychopharmacology as well as psychotherapeutic interventions were discussed along with review of treatments in the past. Education provided concerning need for adequate hydration. Patient/Guardian verbalized understanding of education, treatment plan and follow up. 04/30/2024 Other Dental Chair Assembler met with (CLIENT NAME) to assist in working on building skills to help the consumer gain confidence in their independent living skills. The technical report writer practiced with (CLIENT NAME) implementing problem solving skills (Provide Examples) to help facilitate exploration of options (explain options). The technical report writer encouraged and engaged in critical thinking of how to use natural resources and coping skills to help manage symptoms in the moment. Dental Chair Assembler also worked on modeling and practicing with the consumer healthy coping skills to reduce stress and anxiety (Provide Examples). 08/20/2024 Other Client reports improvement since being back on medications. States she has been taking daily for 2 weeks now. Continue current regimen, f/u in 4 weeks to continue to monitor efficacy. Reasons, potential benefits, potential risks, interactions and side effects of all medications were discussed. The Patient/Guardian asked appropriate questions, appeared to understand the answers, and decided to accept the treatment and continue being followed. Alternatives and expected course without treatment were reviewed. The Patient/Guardian is aware of the need to contact the office or return for an earlier appointment if any problems or concerns arise. May also contact the 24-hour crisis hotline ([facility]), refer to the closest emergency room or call 911 if new symptoms arise of existing symptoms worsen. The Patient/Guardian is aware that this would apply to symptoms like: suicidal ideation, homicidal ideation, high risk behaviors, manic symptoms, psychotic symptoms, physical symptoms, or any other symptoms that may be dangerous to self or others. Greater than 50% of time spent on coordination and counseling where psychopharmacology as well as psychotherapeutic interventions were discussed along with review of treatments in the past. Education provided concerning need for adequate hydration. Patient/Guardian verbalized understanding of education, treatment plan and follow up. This session was completed telephonically with client/parental/guard martha consent: Unable to determine movement status, assess appearance, affect, AIMS, or vital signs. 08/29/2024 Other Patient may self-administ er their own medications or may self-administ er their own oral medications per [place] Protocol. 09/17/2024 Other Reasons, potential benefits, potential risks, interactions and side effects of all medications were discussed. The Patient/Guardian asked appropriate questions, appeared to understand the answers, and decided to accept the treatment and continue being followed. Alternatives and expected course without treatment were reviewed. The Patient/Guardian is aware of the need to contact the office or return for an earlier appointment if any problems or concerns arise. May also contact the 24-hour crisis hotline ([facility]), refer to the closest emergency room or call 911 if new symptoms arise of existing symptoms worsen. The Patient/Guardian is aware that this would apply to symptoms like: suicidal ideation, homicidal ideation, high risk behaviors, manic symptoms, psychotic symptoms, physical symptoms, or any other symptoms that may be dangerous to self or others. Greater than 50% of time spent on coordination and counseling where psychopharmacology as well as psychotherapeutic interventions were discussed along with review of treatments in the past. Education provided concerning need for adequate hydration. Patient/Guardian verbalized understanding of education, treatment plan and follow up. 09/24/2024 Other Reasons, potential benefits, potential risks, interactions and side effects of all medications were discussed. The Patient/Guardian asked appropriate questions, appeared to understand the answers, and decided to accept the treatment and continue being followed. Alternatives and expected course without treatment were reviewed. The Patient/Guardian is aware of the need to contact the office or return for an earlier appointment if any problems or concerns arise. May also contact the 24-hour crisis hotline ([facility]), refer to the closest emergency room or call 911 if new symptoms arise of existing symptoms worsen. The Patient/Guardian is aware that this would apply to symptoms like: suicidal ideation, homicidal ideation, high risk behaviors, manic symptoms, psychotic symptoms, physical symptoms, or any other symptoms that may be dangerous to self or others. Greater than 50% of time spent on coordination and counseling where psychopharmacology as well as psychotherapeutic interventions were discussed along with review of treatments in the past. Education provided concerning need for adequate hydration. Patient/Guardian verbalized understanding of education, treatment plan and follow up. 10/08/2024 Other Reasons, potential benefits, potential risks, interactions and side effects of all medications were discussed. The Patient/Guardian asked appropriate questions, appeared to understand the answers, and decided to accept the treatment and continue being followed. Alternatives and expected course without treatment were reviewed. The Patient/Guardian is aware of the need to contact the office or return for an earlier appointment if any problems or concerns arise. May also contact the 24-hour crisis hotline ([facility]), refer to the closest emergency room or call 911 if new symptoms arise of existing symptoms worsen. The Patient/Guardian is aware that this would apply to symptoms like: suicidal ideation, homicidal ideation, high risk behaviors, manic symptoms, psychotic symptoms, physical symptoms, or any other symptoms that may be dangerous to self or others. Greater than 50% of time spent on coordination and counseling where psychopharmacology as well as psychotherapeutic interventions were discussed along with review of treatments in the past. Education provided concerning need for adequate hydration. Patient/Guardian verbalized understanding of education, treatment plan and follow up. This session was completed telephonically with client/parental/guard martha consent: Unable to determine movement status, assess appearance, affect, AIMS, or vital signs. 10/22/2024 Other Reasons, potential benefits, potential risks, interactions and side effects of all medications were discussed. The Patient/Guardian asked appropriate questions, appeared to understand the answers, and decided to accept the treatment and continue being followed. Alternatives and expected course without treatment were reviewed. The Patient/Guardian is aware of the need to contact the office or return for an earlier appointment if any problems or concerns arise. May also contact the 24-hour crisis hotline ([facility]), refer to the closest emergency room or call 911 if new symptoms arise of existing symptoms worsen. The Patient/Guardian is aware that this would apply to symptoms like: suicidal ideation, homicidal ideation, high risk behaviors, manic symptoms, psychotic symptoms, physical symptoms, or any other symptoms that may be dangerous to self or others. Greater than 50% of time spent on coordination and counseling where psychopharmacology as well as psychotherapeutic interventions were discussed along with review of treatments in the past. Education provided concerning need for adequate hydration. Patient/Guardian verbalized understanding of education, treatment plan and follow up. 11/05/2024 Other Reasons, potential benefits, potential risks, interactions and side effects of all medications were discussed. The Patient/Guardian asked appropriate questions, appeared to understand the answers, and decided to accept the treatment and continue being followed. Alternatives and expected course without treatment were reviewed. The Patient/Guardian is aware of the need to contact the office or return for an earlier appointment if any problems or concerns arise. May also contact the 24-hour crisis hotline ([facility]), refer to the closest emergency room or call 911 if new symptoms arise of existing symptoms worsen. The Patient/Guardian is aware that this would apply to symptoms like: suicidal ideation, homicidal ideation, high risk behaviors, manic symptoms, psychotic symptoms, physical symptoms, or any other symptoms that may be dangerous to self or others. Greater than 50% of time spent on coordination and counseling where psychopharmacology as well as psychotherapeutic interventions were discussed along with review of treatments in the past. Education provided concerning need for adequate hydration. Patient/Guardian verbalized understanding of education, treatment plan and follow up. 11/27/2024 Other Reasons, potential benefits, potential risks, interactions and side effects of all medications were discussed. The Patient/Guardian asked appropriate questions, appeared to understand the answers, and decided to accept the treatment and continue being followed. Alternatives and expected course without treatment were reviewed. The Patient/Guardian is aware of the need to contact the office or return for an earlier appointment if any problems or concerns arise. May also contact the 24-hour crisis hotline ([facility]), refer to the closest emergency room or call 911 if new symptoms arise of existing symptoms worsen. The Patient/Guardian is aware that this would apply to symptoms like: suicidal ideation, homicidal ideation, high risk behaviors, manic symptoms, psychotic symptoms, physical symptoms, or any other symptoms that may be dangerous to self or others. Greater than 50% of time spent on coordination and counseling where psychopharmacology as well as psychotherapeutic interventions were discussed along with review of treatments in the past. Education provided concerning need for adequate hydration. Patient/Guardian verbalized understanding of education, treatment plan and follow up. This session was completed telephonically with client/parental/guard martha consent: Unable to determine movement status, assess appearance, affect, AIMS, or vital signs. 12/10/2024 Other Reasons, potential benefits, potential risks, interactions and side effects of all medications were discussed. The Patient/Guardian asked appropriate questions, appeared to understand the answers, and decided to accept the treatment and continue being followed. Alternatives and expected course without treatment were reviewed. The Patient/Guardian is aware of the need to contact the office or return for an earlier appointment if any problems or concerns arise. May also contact the 24-hour crisis hotline ([facility]), refer to the closest emergency room or call 911 if new symptoms arise of existing symptoms worsen. The Patient/Guardian is aware that this would apply to symptoms like: suicidal ideation, homicidal ideation, high risk behaviors, manic symptoms, psychotic symptoms, physical symptoms, or any other symptoms that may be dangerous to self or others. Greater than 50% of time spent on coordination and counseling where psychopharmacology as well as psychotherapeutic interventions were discussed along with review of treatments in the past. Education provided concerning need for adequate hydration. Patient/Guardian verbalized understanding of education, treatment plan and follow up. 01/14/2025 Other Reasons, potential benefits, potential risks, interactions and side effects of all medications were discussed. The Patient/Guardian asked appropriate questions, appeared to understand the answers, and decided to accept the treatment and continue being followed. Alternatives and expected course without treatment were reviewed. The Patient/Guardian is aware of the need to contact the office or return for an earlier appointment if any problems or concerns arise. May also contact the 24-hour crisis hotline ([facility]), refer to the closest emergency room or call 911 if new symptoms arise of existing symptoms worsen. The Patient/Guardian is aware that this would apply to symptoms like: suicidal ideation, homicidal ideation, high risk behaviors, manic symptoms, psychotic symptoms, physical symptoms, or any other symptoms that may be dangerous to self or others. Greater than 50% of time spent on coordination and counseling where psychopharmacology as well as psychotherapeutic interventions were discussed along with review of treatments in the past. Education provided concerning need for adequate hydration. Patient/Guardian verbalized understanding of education, treatment plan and follow up. Plan Of Treatment Future Test Test Name Order Date Electrocardiogram (EKG) 10/31/2022 Insurance Providers Payer Name Payer Address Payer Phone Subscriber Number Group Number Insured Name Patient Relationship to Insured Coverage Start Date Coverage End Date [facility] [address] [place] [address] [id number] Natacha Romero Self - patient is the insured 4 5 MEDICAID [address] [place] [address] [id number] Mary Romeroca Self - patient is the insured 5 [employer] [address] [place] [address] [id number] NickLeanne ledbetterecca Self - patient is the insured 2 4 [employer] [address] [place] [address] [id number] NickLeanne ledbetterecca Self - patient is the insured 2 4 Medical (General) History Surgical History Surgery Date(Month/Year) tubal ligation 2010 tubes (ears) Hospitalization History Reason Date(Month/Year) CRU 03/2022
--- OUTSIDE RECORDS SUMMARY | 2025-02-05 06:56 | XMS_ITS | Continuity of Care Document ---
Author Organization [facility] Address [address] [place] [address] Phone Care Team Providers Care In Store Marketer Name Role Phone Keysha Oliver Unavailable Unavailable Advance Directives Directive Yes / No Effective Date File Name No Information Encounters Encounter Description Practice Location Reason(s) For Visit Diagnoses Date Provider Providers Copied on Encounter [facility], [address], [place], [place], [id number], [place] tel:[phone] [facility] No Information Feb-0 3-200 6 Melody Chopra. [address] , [address], [place], [address], [place]. tel:[phone] Family History Family Member Type Diagnosis Age At Onset No Information Payers Payer name Insurance type Covered democrat ID Authoriza tion(s) Medicaid [facility] [id number] Social History Type Description Quantity Date Captured [...]
--- OUTSIDE RECORDS SUMMARY | 2025-02-05 06:56 | XMS_ITS | Referral Summary ---
Author Organization [facility] Address [address] [place] [address] Care Team Providers Care Oil Burner Journeyman Name Role Phone Bhanu Highie KAROL Primary Care Provider [phone] Allergies No known active allergies Medications cyclobenzaprine (FLEXERIL) 10 mg tablet Take 1 tablet (10 mg total) by mouth 2 (two) times a day as needed for muscle spasms 20 tablet 06/07/2021 Active HYDROcodone-acet aminophen (NORCO) 5-325 mg per tabletIndication s:Pain Take 1 tablet by mouth every 6 (six) hours as needed for pain 20 tablet 06/07/2021 Active Social History Tobacco Use Types Packs/Day Years Used Date Smoking Tobacco: Never Assessed Personal Safety Answer Date Recorded Getting School Help Needed Not on file 09/09 Comments Unknown Sex and Gender Information Value Date Recorded Sex Assigned at Not on file Legal Sex Female 8:31 PM EXEC. CREATIVE DIRECTOR Gender Identity Not on file Sexual Orientation Not on file Last Filed Vital Signs Vital Sign Reading Time Taken Comments Blood Pressure 165/97 06/07/2021 12:24 PM EXEC. CREATIVE DIRECTOR Pulse 76 06/07/2021 12:24 PM EXEC. CREATIVE DIRECTOR Temperature 36.8 C (98.3 F) 06/07/2021 10:28 AM EXEC. CREATIVE DIRECTOR Respiratory Rate 18 06/07/2021 12:24 PM EXEC. CREATIVE DIRECTOR Oxygen Saturation 100% 06/07/2021 12:24 PM EXEC. CREATIVE DIRECTOR Inhaled Oxygen Concentration - - Weight 113.4 kg (250 lb) 06/07/2021 10:28 AM EXEC. CREATIVE DIRECTOR Height 172.7 cm (5' 8) 06/07/2021 10:28 AM EXEC. CREATIVE DIRECTOR Body Mass Index 38.01 06/07/2021 10:28 AM EXEC. CREATIVE DIRECTOR Plan of Treatment Not on file Insurance [facility] Care Teams Oil Burner Journeyman Relationship Specialty Start Date End Date Ronel High NP [facility] [place] [address] PCP - General Nurse Practitioner 06/07/21
--- OUTSIDE RECORDS SUMMARY | 2025-02-05 06:56 | XMS_ITS | Clinical Summary ---
Author Organization [facility] Address [address] [place] [address] Care Team Providers Care Metalworking Instructor Name Role Phone Ronel High ADDISON-FIELD UNDERWRITER Primary Care Provider + Source Comments [facility],non-owned Affiliates and Associated Physician Practices is amultiple site organization consisting of ambulatory clinics and hospital sitesin [place], [place], [place] and [place]. This disclosure is being madepursuant to the Care Everywhere program and may not contain all information available regarding this patient. Last updated 18.[facility] Allergies No known active allergies Medications * Be aware that medications may not be up to date on this document. Alwaysverify current medications with the patient. Maspeth-3 Fatty Acids (FISH OIL) 1200 MG 2 times daily Act jung cetirizine (ZYRTEC) 10 MG tablet cetirizine 10 mg tablet TAKE 1 TABLET BY MOUTH EVERY DAY 2 Active FARXIGA 5 MG tablet 2 Active fenofibrate (LOFIBRA) 160 MG tablet TAKE 1 TABLET BY MOUTH EVERYDAY AT BEDTIME 1 Active lisinopril (PRINIVIL; ZESTRIL) 10 MG tablet Take 10 mg by mouth once daily 2 Active meloxicam (MOBIC) 15 MG tablet meloxicam 15 mg tablet TAKE 1 TABLET BY MOUTH EVERY DAY Active metFORMIN ER 24hr (GLUCOPHAGE XR) 500 MG tablet metformin ER 500 mg tablet,extended release 24 hr TAKE 1 TABLET BY MOUTH TWICE A DAY WITH MEALS 1 Active traZODone (DESYREL) 150 MG tablet Take 300 mg by mouth at bedtime 2 Active vitamin E (TOCOPHERYL) 600 UNIT capsule Active medroxyPROGESTE El Acetate (DEPO-PROVERA IM) Active Cholecalciferol (VITAMIN D) 125 MCG (5000 UT) CAPS Active melatonin 5 MG capsule Take 10 mg by mouth at bedtime Active atorvastatin (LIPITOR) 20 MG tablet Take 20 mg by mouth at bedtime Active hydrOXYzine pamoate (Vistaril) 25 MG capsule 2 Active risperiDONE (RisperDAL) 2 MG tablet Take 2 mg by mouth once daily 2 Active tiZANidine (Zanaflex) 4 MG tabletIndicatio ns:Myofascial pain Take 1 (one) tablet by mouth every 8 hours as needed for Muscle Spasms 90 tablet 2 2 Active methocarbamol (Robaxin) 750 MG tabletIndicatio ns:Myofascial pain Take 1 (one) tablet by mouth every 8 hours as needed for Muscle Spasms 90 tablet 2 2 Active medroxyPROGESTE El (Depo-Provera) 150 MG/ML vial 2 Active fluvoxaMINE (Luvox) 100 MG tablet fluvoxamine 100 mg tablet TAKE HALF A TABLET BY MOUTH FOR 4 DAYS THEN INCREASE TO A FULL TABLET ONCE DAILY 30 DAYS Active naproxen (Naprosyn) 500 MG tablet Take 1 (one) tablet by mouth 2 times daily as needed for Pain 60 tablet 2 3 Active Active Problems Problem Noted Date Diagnosed Date Abnormal liver enzymes 10/08/2021 Nonalcoholic fatty liver disease 10/08/2021 Metabolic syndrome 10/08/2021 Family History Medical History Relation Name Comments Diabetes - Type 2 Father Relation Name Status Comments Brother Alive Father Alive Mother Alive Social History Tobacco Use Types Packs/Day Years Used Date Smoking Tobacco: Every Day Cigarettes 1 25 Smokeless Tobacco: Never Tobacco Cessation:Ready to Q uit: No; Counseling Given: Yes Alcohol Use Standard Drinks/Week Comments Yes 0 (1 standard drink = 0.6 oz pur e alcohol) rarely mixed drink Comments No Sex and Gender Information Value Date Recorded Sex Assigned at Not on file Legal Sex Female 11:29 AM CDT Gender Identity Not on file Sexual Orientation Not on file Last Filed Vital Signs Vital Sign Reading Time Taken Comments Blood Pressure 137/51 06/10/2022 10:33 AM HELPER/DRIVER Pulse 99 06/10/2022 10:33 AM HELPER/DRIVER Temperature 36.8 C (98.2 F) 06/10/2022 10:33 AM HELPER/DRIVER Respiratory Rate 16 06/10/2022 10:33 AM HELPER/DRIVER Oxygen Saturation 100% 10/07/2021 1:20 PM CDT Inhaled Oxygen Concentration - - Weight 107 kg (236 lb) 06/10/2022 10:33 AM HELPER/DRIVER Height 170.2 cm (5' 7) 06/10/2022 10:33 AM HELPER/DRIVER Body Mass Index 36.96 06/10/2022 10:33 AM HELPER/DRIVER Plan of Treatment Health Maintenance Due Date Last Done Comments MAMMOGRAM 1981 HIV SCREENING 1996 HEPATITIS C SCREENING 08/15/1999 DTAP/TDAP/TD VACCINES (1 - Tdap) 2000 HEPATITIS B VACCINE (1 of 3 - 19+ 3-dose series) 2000 PNEUMOCOCCAL VACCINE (1 of 2 - PCV) 2000 PAP SMEAR 2002 HPV VACCINE (1 - 3-dose SCDM series) 2008 COVID-19 VACCINE ( season) 2024 08/16/2021, 12/22/2020, 12/03/2020, Additional history exists DEPRESSION SCREENING 07/10/2024 INFLUENZA VACCINE (#1) 2025 1, 04/28/2020, 04/02/2020 SCREENING FOR DIABETES 03/26/2025 2, 03/26/2022, 03/26/2022, Additional history exists ZOSTER VACCINE (1 of 2) 2031 HIB VACCINE Aged Out No longer eligi ble based on patient's age to complete this topic MENINGOCOCCAL (Group B) VACCINE SHARED DECISION-MAKING Aged Out No longer eligible based on patient's age to complete this topic MENINGOCOCCAL GROUPS A/C/Y/W VACCINE Aged Out No longer eligible based on patient's age to complete this topic Goals Goal Patient Goal Type Associated Problems Recent Progress Patient-Stated? Author Medication Management General On track( 1:56 PM CDT) Lavern Madsen, ENEDELIA Note: Expected end date: ongoing Interventions: Take all medications as prescribed Let your doctor know right away about any changes in your medications Make sure to request a refill of your medication at least one week prior to your last dose Safety General On track( 1:56 PM CDT) Lavern Madsen, RN Note: Expected end date: ongoing Interventions: Your nurse will assess your risk for falls/injury each visit Use appropriate and safe transfer methods Be aware of medications that could predispose you to falling Wear non-skid/rubber sole footwear Keep personal items within easy reach Use some light at night in your room Maintain an unobstructed path to the bathroom Procedures Procedure Name Priority Date/Time Associated Diagnosis Comments COMPREHENSIVE METABOLIC PANEL Routine 10/07/2021 4:12 PM CDT Elevated transaminase level from Last 3 Months or Most Recently Relevant to Health Maintenance Results * (ABNORMAL) COMPREHENSIVE METABOLIC PANEL (10/07/2021 4:12 PM CDT) BUN 13 7 - 26 mg/dL 10/07/2021 5:05 PM [facility] Creatinine 0.71 0.56 - 0.96 mg/dL 10/07/2021 5:05 PM [facility] Sodium 143 136 - 145 mmol/L 10/07/2021 5:05 PM [facility] Potassium 4.3 3.5 - 4.5 mmol/L 10/07/2021 5:05 PM [facility] Chloride 103 98 - 107 mmol/L 10/07/2021 5:05 PM [facility] CO2 26 22 - 29 mmol/L 10/07/2021 5:05 PM [facility] Glucose 89 70 - 115 mg/dL 10/07/2021 5:05 PM [facility] Calcium 10.9(H) 8.4 - 10.2 mg/dL 10/07/2021 5:05 PM [facility] Protein Total 8.9(H) 6.0 - 8.3 g/dL 10/07/2021 5:05 PM [facility] Albumin 4.8 3.4 - 5.0 g/dL 10/07/2021 5:05 PM [facility] Bilirubin Total 0.5 0.2 - 1.2 mg/dL 10/07/2021 5:05 PM [facility] Alkaline Phosphatase 77 40 - 150 U/L 10/07/2021 5:05 PM [facility] ALT 84(H) 5 - 55 U/L 10/07/2021 5:05 PM [facility] AST 95(H) 5 - 34 U/L 10/07/2021 5:05 PM [facility] Anion Gap 18 8 - 18 10/07/2021 5:05 PM [facility] BUN/Creatinine Ratio 18 7 - 23 10/07/2021 5:05 PM [facility] Osmolality Calculated 296 270 - 300 mOsm/kg 10/07/2021 5:05 PM [facility] Albumin/Globulin Ratio 1.2 1.1 - 2.3 10/07/2021 5:05 PM [facility] eGFR by CKD-EPI >90 >=90 mL/min/1.7 3 m2 10/07/2021 5:05 PM [facility] Blood BLOOD SPECIMEN / Unknown Lab Venipuncture / Unknown 10/07/2021 4:12 PM CDT 10/07/2021 4:38 PM [facility] ASH LAB - CHEMISTRY ORDERABLES Final Result [facility] [address] [place] [address], [facility] [phone] from Last 3 Months or Most Recently Relevant to Health Maintenance Insurance [employer] [facility] Care Teams Metalworking Instructor Relationship Specialty Start Date End Date Ronel High APRN-IRENA [facility] [place] [address] PCP - General Nurse Practitioner 10/07/21
--- OUTSIDE RECORDS SUMMARY | 2025-02-05 06:56 | XMS_ITS | Clinical Summary ---
Author Organization [facility] Address [address] [place] [id number] Care Team Providers Care Aerobics Instructor Name Role Phone Bhanu Highie KAROL Primary Care Provider [phone] Allergies No known active allergies Medications cyclobenzaprine [...] on file Legal Sex Female 8:31 PM RIB SAWYER Gender Identity Not on file Sexual Orientation Not on file Last Filed Vital Signs Vital Sign Reading Time Taken Comments Blood Pressure 165/97 06/07/2021 12:24 PM RIB SAWYER Pulse 76 06/07/2021 12:24 PM RIB SAWYER Temperature 36.8 C (98.3 F) 06/07/2021 10:28 AM RIB SAWYER Respiratory Rate 18 06/07/2021 12:24 PM RIB SAWYER Oxygen Saturation 100% 06/07/2021 12:24 PM RIB SAWYER Inhaled Oxygen Concentration - - Weight 113.4 kg (250 lb) 06/07/2021 10:28 AM RIB SAWYER Height 172.7 cm (5' 8) 06/07/2021 10:28 AM RIB SAWYER Body Mass Index 38.01 06/07/2021 10:28 AM RIB SAWYER Plan of Treatment Not on file Insurance [facility] Care Teams Aerobics Instructor Relationship Specialty Start Date End Date Ronel High NP [facility] [address] PCP - General Nurse Practitioner 06/07/21
--- OUTSIDE RECORDS SUMMARY | 2025-02-05 06:56 | XMS_ITS | Continuity of Care Document ---
Author Organization [facility] Address [address] [place] [place] [address] [place] [address] Phone Care Team Providers Care Director Of Nuclear Medicine Name Role Phone Albert Kwok MD Unavailable Unavailable Allergies, Adverse Reactions, Alerts Substance Reaction Status Criticality No Known Allergies Active No Inform ation Medications Medication Instructions Dosage Effective Dates (start - stop) Status Comments Valium 5 mg tablet take 1 tablet by oral route every day as needed 5 MG - Active take 30 mins before MRI procedure avoid driving or operate machine Zyprexa 5 mg tablet take 1 tablet by oral route every day 5 MG - Active fluvoxamine 100 mg tablet take 1.5 Tablet by oral route every day at bedtime 150 MG - Active trazodone 150 mg tablet take 1 tablet by oral route every day at bedtime - Active Wellbutrin XL 300 mg 24 hr tablet, extended release take 1 tablet by oral route every morning 300 MG - Active Strattera 80 mg capsule take 1 capsule by oral route every day - Active Vraylar 6 mg capsule take 1 capsule by oral route every day 6 MG - Active pilocarpine 5 mg tablet take 1 tablet by oral route 3 times every day 5 MG - Active oxybutynin chloride ER 10 mg tablet,extended release 24 hr take 1 tablet by oral route every day 10 MG - Active Procedures Procedure Date OFFICE/OUTPATIENT VISIT, EST PREV VISIT, NEW, AGE 40-64 Advance Directives Directive Yes / No Effective Date File Name No Information Encounters Encounter Description Practice Location Reason(s) For Visit Diagnoses Date Provider Providers Copied on Encounter [facility], [address], [place], [place], [id number], [place] tel:[phone] [facility] Medicine No Information Sundar Price. [address], [place], [place], [id number], [place]. tel:[phone] OFFICE/OUTPAT IENT VISIT, EST [facility], [address], [place], [place], [id number], [place] tel:[phone] [facility] anxiety1 (chief complaint) Generalized Anxiety Disorder Sundar Price. [address], [place], [place], [id number], [place]. tel:[phone] PREV VISIT, NEW, AGE 40-64 [facility], [address], [place], [place], [id number], [place] tel:[phone] [facility] Medicine physical (chief complaint) Encounter for general adult medical examination without abnormal findings Sundar Price. [address], [place], [place], [address], [place]. tel:[phone] Family History Family Member Type Diagnosis Age At Onset Mother Problem unknown Father Problem Diabetes mellitus Brother Problem Alive and well Payers Payer name Insurance type Covered alliance party ID Authoriza tiadelita(s) Medicaid [id number] Social History Type Description Quantity Date Captured Comments Sex Female Smoking Status No Information Chief Complaint And Reason For Visit No Information Plan Of Treatment Date Type Action Status Referral Ordered: MAMMOGRAM, SCREENING ordered Referral Ordered: MRI BRAIN W/O & W/DYE ordered Referral Ordered: MRI JOINT UPR EXTREM W/O DYE Right shoulder ordered Referral Ordered: MRI LUMBAR SPINE W/O DYE ordered History Of Present Illness Encounter Date Complaint History Of Prese nt Illness anxiety1 Pt supposes to g et MRi done soon and she has severe anxiety inside the MRI tube and she wants a valium to help her with the claustrophobic feeling. Pt took valium in the past for above which did help her with above physical pt needs brady minor. .Pt c/o chronic low back pain with neuropathy symptoms Pt states that her leg gave out recently due to weakness. pt went to Er and she had x ray done which showed DDD .Pt states that her low back pain has been persist for the past several years. Pt has OAB .Pt is on oxybutynin and also pilocarpine by [employer]ILD[employer] and doing ok pt also has anxiety and depression with ADD pt is on Vraylar, strattera, wellbutrin, trazodone, fluvoxamine. and zyprexa. Pt sees psychiatrist Pt denies any suicidal or homicidal thought Pt denies any crying spells. Pt also c/o severe right shoulder pain chronically. 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 Instructions Date Instruction Additional Infor matpola No Information Assessments Type Assessment Date No Information
--- OUTSIDE RECORDS SUMMARY | 2025-02-05 06:56 | XMS_ITS | Clinical Summary ---
Author Organization [facility] Address [address] [place] [address] Care Team Providers Care Tool And Die Engineer Name Role Phone Ronel High NP Primary Care Provider [phone] Allergies No known active allergies Medications traZODone 150 MG tablet Take 300 mg by mouth nightly at bedtime. at bedtime 06/09/20 21 Active ondansetron 8 MG tablet Take 8 mg by mouth 2 (two) times daily as needed. 02/17/20 21 Active metFORMIN ER 500 MG 24 hr tablet Take 500 mg by mouth 2 (two) times daily with meals. 07/02/20 21 Active meloxicam 15 MG tablet meloxicam 15 mg tablet TAKE 1 TABLET BY MOUTH EVERY DAY Active melatonin 5 MG tablet melatonin 5 mg tablet TAKE 1 TABLET BY MOUTH AT BEDTIME Active medroxyPROGEST ERone 150 MG/ML injection medroxyprogesterone 150 mg/mL intramuscular suspension Active cetirizine 10 MG tablet Take 10 mg by mouth daily. 07/27/19 22 Active ALPRAZolam 0.5 MG tablet Take 0.5 mg by mouth 2 (two) times daily. 06/17/20 21 Active Vitamin E 600 units Cap Active omega-3 fatty acid 500 MG capsule Take 500 mg by mouth daily. Active vitamin D3, cholecalcifero l, 5000 UNITS capsule Take 1 capsule by mouth daily. Active fenofibrate 145 MG tablet Take 145 mg by mouth daily. Active atorvastatin 10 MG tablet Take 10 mg by mouth nightly at bedtime. Activ e lisinopril 2.5 MG tablet Take 2.5 mg by mouth daily. Active lisinopril 10 MG tablet lisinopril 10 mg tablet TAKE 1 TABLET BY MOUTH EVERY DAY Active Dapagliflozin Propanediol (FARXIGA) 5 MG Tab Farxiga 5 mg tablet TAKE 1 TABLET BY MOUTH EVERY DAY IN THE MORNING Active Cholecalcifero l 50 MCG (2000 UT) Cap cholecalciferol (vitamin D3) 50 mcg (2,000 unit) capsule TAKE 2 CAPSULES EVERY DAY BY MOUTH IN THE MORNING FOR 30 DAYS. Acti ve atorvastatin 20 MG tablet Take 20 mg by mouth nightly at bedtime. 12/04/19 22 Active Active Problems Problem Noted Date Diagnosed Date Lumbar transverse process fr acture, closed, initial encounter ([facility]) 08/18/2021 Radiculopathy, lumbar region 08/18/2021 Social History Tobacco Use Types Packs/Day Years Used Date Smoking Tobacco: Every Day Cigarettes Smokeless Tobacco: Never Tobacco Cessation:Ready to Q uit: Yes; Counseling Given: Yes Comments No Sex and Gender Information Value Date Recorded Sex Assigned at Not on file Legal Sex Female 5:38 PM CDT Gender Identity Female 10/13/2021 1:55 PM CDT Sexual Orientation Straight 10/13/2021 1: 55 PM CDT Last Filed Vital Signs Vital Sign Reading Time Taken Comments Blood Pressure 130/69 03/26/2022 3:29 PM CDT Pulse 81 03/26/2022 3:29 PM CDT Temperature 37 C (98.6 F) 03/26/2022 3:29 PM CDT Respiratory Rate 16 03/26/2022 3:29 PM CDT Oxygen Saturation 100% 03/26/2022 3:29 PM CDT Inhaled Oxygen Concentration - - Weight 97.2 kg (214 lb 4.6 oz) 03/26/2022 3:29 P M CDT Height 172.7 cm (5' 8) 03/26/2022 3:29 PM CDT Body Mass Index 32.58 03/26/2022 3:29 PM CDT Plan of Treatment Health Maintenance Due Date Last Done Comments Cervical Cancer Screening Pap Smear (Age 30 to 64) Every 3 Years 1981 Annual Physical 1984 Hepatitis C 1999 DTaP, Tdap and Td Vaccines (1 - Tdap) 2000 Hepatitis B Vaccines (1 of 3 - 19+ 3-dose series) 2000 Pneumococcal Vaccine: Pediatrics (0 to 5 Years) and At-Risk Patients (6 to 49 Years) (1 of 2 - PCV) 2000 HPV Vaccines (1 - 3-dose SCDM series) 2008 Cervical Cancer Screening Pap with HPV Testing (Age 30 to 64) Every 5 Years 2011 Cervical Cancer Screening with HPV 2011 Mammogram Screening 2021 COVID-19 Vaccine ( season) 2024 08/16/2021, 12/22/2020, 12/03/2020, Additional history exists Meningococcal B Vaccine Aged Out No l onger eligible based on patient's age to complete this topic Meningococcal Vaccine Aged Out No trudi bharath eligible based on patient's age to complete this topic RSV Immunizations Under 20 Months Aged Out No longer eligible based on patient's age to complete this topic Insurance U[employer] Care Teams Tool And Die Engineer Relationship Specialty Start Date End Date Ronel High NP [address] [place] [address] PCP - General NURSE PRACTITIONER 07/08/21
== END 2025-02-05 06:54 | disposition home or self-care (01) ==
PROVIDERS: PCP Emergency Medicine; Visit Provider Emergency Medicine
DX: M25.511 Pain in right shoulder (principal); R41.3 Other amnesia; M47.896 Other spondylosis, lumbar region
CPT/HCPCS: 70553; 72148; 73221; A9577

== ENCOUNTER 2025-05-05 12:18 | Outpatient (CLI) | payer OTHER, SELFPAY ==
--- OUTSIDE RECORDS SUMMARY | 2006-02-09 06:00 | XMS_ITS | Continuity of Care Document ---
Author Organization Located within [facility] Address [address] [place] [address] Phone Care Team Providers Care Press Operator Helper Name Role Phone Keysha Oliver Unavailable Unavailable Advance Directives Directive Yes / No Effective Date File Name No Information Encounters Encounter Description Practice Location Reason(s) For Visit Diagnoses Date Provider Providers Copied on Encounter [facility], [address], [place], [place], [id number], [place] tel:[phone] [facility] [place] No Information Feb-0 3-200 6 Melody Chopra. [address] , [address], [place], [address], [place]. tel:[phone] Family History Family Member Type Diagnosis Age At Onset No Information Payers Payer name Insurance type Covered constitution party ID Authoriza tion(s) Medicaid [facility] [id number] Social History Type Description Quantity Date Captured [...]
--- OUTSIDE RECORDS SUMMARY | 2024-11-19 09:20 | XMS_ITS ---
Author Organization [facility] Address [address] [place] [address] Care Team Providers Care Trade Union Secretary Name Role Phone Tish Guzman Primary Care Provider [phone] Emily Hou Unavailable [phone] REASON FOR VISIT 2 Week F/U Social History Sex Assigned At : Social History Observation Description Sex Assigned At Female Encounters Encounter Location Date Provider Diagnosis [facility] [address] [place] [address] [place] [address] 11/19/2024 Emily Hou Plan Of Treatment No Information Progress Notes * Natacha LONGO ADOB:[birth year] (44 yo F)Acc No.[id number]:11/19/2024 UNLOCKED PROGRESS NOTE Patient: Natacha ZAMORANO Provider: JIM Dunn, MECHANICAL LEAD, REGIONAL CLIMATE CHANGE ANALYST-C :1980 A ge:44 Y S ex:Female Date:11/19/2024 Phone: Address:[address] [place] [address] [id number] Pcp:Tish Guzman Subjective: * Chief Complaints: * 1 . 2 Week F/U. * Medical History: Objective: * Vitals: Assessment: Plan: * Treatment: * * Electronic signature of Tracy Hou , [id number] on 05/05/2025 at 01:44 PM CDT Sign off status: Pending * Provider: JIM Dunn, MECHANICAL LEAD, REGIONAL CLIMATE CHANGE ANALYST-C Date: 0 11/19/2024 Generated for Ophelia ng/Faxander/eTransmitting on: 01:44 PM CDT
--- OUTSIDE RECORDS SUMMARY | 2025-03-24 06:00 | XMS_ITS ---
Author Organization [facility] Address [address] [place] [address] Care Team Providers Care Local Hazmat Driver Name Role Phone Tish Guzman Primary Care Provider [phone] Emily Hou Unavailable [phone] REASON FOR VISIT complete forms ASRS and ADHD. Please inform Tala Julio when forms are completed. Social History Sex Assigned At : Social History Observation Description Sex Assigned At Female Encounters Encounter Location Date Provider Diagnosis [facility] [address] [facility] [place] [address] 03/24/2025 Emily Hou Plan Of Treatment No Information Progress Notes * Natacha LONGO ADOB:[birth year] (44 yo F)Acc No.[id number]:03/24/2025 UNLOCKED PROGRESS NOTE Progress Note Patient: Natacha ZAMORANO Provider: JIM Dunn, PRODUCT BUILDER, DISTRICT COURT JUSTICE-C :1980 A ge:44 Y S ex:Female Date:03/24/2025 Phone: Address:[address] [place], [place] [address] Pcp:Tish Guzman Subjective: * Chief Complaints: * 1 . complete forms ASRS and ADHD. Please inform Tala Julio when forms are completed.. * Medical History: Objective: * Vitals: Assessment: Plan: * Treatment: * * Electronic signature of Tracy Hou , [id number] on 05/05/2025 at 01:44 PM CDT Sign off status: Pending * Provider: JIM Dunn, PRODUCT BUILDER, DISTRICT COURT JUSTICE-C Date: 0 03/24/2025 Generated for Ophelia gaspar/Monalisa/Roberto on: 1 01:44 PM CDT
[2025-05-05 13:08] LABS: Hematocrit 43.7 % (37.0-47.0); Hemoglobin 14.5 g/dL (12.0-15.0); Mean Corpuscular HGB Conc 33.2 g/dl (32-36); Mean Corpuscular Hemoglobin 30.9 pg (26-34); Mean Corpuscular Volume 93.2 fl (80-100); Platelet Count Result 267 k/mm3 (150-375); Red Blood Count 4.69 M/mm3 (4.2-5.4); White Blood Count 10.7 K/mm3 (4.5-10.0)
--- OUTSIDE RECORDS SUMMARY | 2025-05-05 13:44 | XMS_ITS | Clinical Summary ---
Author Organization [facility] Address [address] [place] [address] Care Team Providers Care Powerhouse Mechanic Helper Name Role Phone Ronel High NP Primary Care Provider [phone] Allergies No known active allergies Medications traZODone [...] transverse process fr acture, closed, initial encounter 08/18/2021 Radiculopathy, lumbar region 08/18/2021 Social History [...] Mammogram Screening 2021 COVID-19 Vaccine ( season) 2025 08/16/2021, 12/22/2020, 12/03/2020, Additional history exists Influenza Adult (#1) 2025 04/20/2021, 04/28/2020, 04/02/2020 Hepatitis A Vaccines Aged Out No long er eligible based on patient's age to complete this topic Meningococcal B Vaccine Aged Out No l onger eligible based on patient's age to complete this topic Meningococcal Vaccine Aged Out No trudi bharath eligible based on patient's age to complete this topic RSV Immunizations Under 20 Months Aged Out No longer eligible based on patient's age to complete this topic Insurance [place] [employer] Care Teams Powerhouse Mechanic Helper Relationship Specialty Start Date End Date Ronel High NP [address] [place] [address] PCP - General NURSE PRACTITIONER 07/08/21
--- OUTSIDE RECORDS SUMMARY | 2025-05-05 13:45 | XMS_ITS | Clinical Summary ---
Author Organization [facility] [employer] Address [address] [place] [address] Care Team Providers Care Aviation Safety Officer Name Role Phone Albert Kwok MD Primary Care Provider [phone] Source Comments [facility] [employer],non-[facility] Affiliates and Associated Physician Practices is amultiple site organization consisting of ambulatory clinics and hospital sitesin [place], [place], [place] and [place]. This disclosure is being madepursuant to the Care Everywhere program and may not contain all information available regarding this patient. Last updated 18.[facility] [employer] Allergies Active Allergy Reactions Criticality Noted Date Comments Latex Rash,Itching Medium 03/26/2025 Skin Adhesives Rash,Itching Medium 03/26/2025 Medications * Be aware that medications may not be up to date on this document. Alwaysverify current medications with the patient. [place]-3 Fatty Acids (FISH OIL) 1200 MG 2 [...] Muscle Spasms 90 tablet 2 2 Active Additional Information Patient not taking.Reported on 03/26/2025 methocarbamol (Robaxin) 750 MG tabletIndicatio ns:Myofascial pain Take 1 (one) tablet by mouth every 8 hours as needed for Muscle Spasms 90 tablet 2 2 Active Additional Information Patient not taking.Reported on 03/26/2025 medroxyPROGESTE El (Depo-Provera) 150 MG/ML vial 2 Active fluvoxaMINE (Luvox) 100 MG tablet fluvoxamine 100 mg tablet TAKE HALF A TABLET BY MOUTH FOR 4 DAYS THEN INCREASE TO A FULL TABLET ONCE DAILY 30 DAYS Active naproxen (Naprosyn) 500 MG tablet Take 1 (one) tablet by mouth 2 times daily as needed for Pain 60 tablet 2 3 Active Additional Information Patient not taking.Reported on 03/26/2025 atomoxetine (Strattera) 80 MG capsule Take 1 (one) capsule by mouth once daily 5 Active buPROPion XL 24hr (Wellbutrin-XL) 300 MG tablet Take 1 (one) tablet by mouth once daily 5 Active Vraylar 6 MG capsule Take 1 (one) capsule by mouth once daily 5 Active OLANZapine, disintegrating, (ZyPREXA Zydis) 5 MG tablet Take 1 (one) tablet by mouth once daily 5 Active oxyBUTYnin CR 24hr (Ditropan-XL) 10 MG tablet Take 1 (one) tablet by mouth 2 times daily 5 Active Pilocarpine HCl 7.5 MG Take 1 (one) tablet by mouth once daily Active multivitamin daily tablet Take 1 (one) tablet by mouth daily with food Active Active Problems Problem Noted Date Diagnosed Date Abnormal liver enzymes 10/08/2021 Nonalcoholic fatty liver disease 10/08/2021 Metabolic syndrome 10/08/2021 Encounters Date Type Department Care Team Description 04/29/2025 Telephone [facility] - [facility] [address] [place] [phone] Ayad Thao MD Question 03/26/2025 10:15 AM CDT Office Visit [facility] - [facility] [address] [place] [phone] Ayad Thao MD Venous malformation (HCC) (Primary Dx); Lesion of soft palate 03/26/2025 Travel 02/27/2025 9:24 AM CDT - 02/27/2025 11:59 PM CDT Hospital Encounter [facility] - Outside Imaging Discharge Disposition: Home or Self Care 02/27/2025 9:22 AM CDT - 02/27/2025 9:23 AM CDT Hospital Encounter [facility] - Outside Imaging Discharge Disposition: Home or Self Care from Last 3 Months Immunizations Immunization Administration Dates Next Due Covid Moderna primary monovalent 12+ yr 0.5mL INFLUENZA VACCINE, QUADR. (A FLURIA, FLUZONE QUADRIVALENT; 6MO+) (IIV4) 04/28/2020 INFLUENZA VACCINE, QUADR. (F LUZONE; FLULAVAL; FLUARIX; AFLURIA QUADRIVALENT; 6MO+), 0.5 ML (IIV4) 04/20/2021 iNFLUENZA VACCINE, RECOM-DAI, QUADR. (FLUBLOCK QUADRIVALENT; 18Y+) (RIV4) 04/02/2020 Family History Medical History Relation Name Comments Diabetes - Type 2 Father Relation Name Status Comments Brother Alive Father Alive Mother Alive Social History Tobacco Use Types Packs/Day Years Used Date Smoking Tobacco: Every Day Cigarettes 1 25 Smokeless Tobacco: Never Alcohol Use Standard Drinks/Week Comments Yes 0 (1 standard drink = 0.6 oz pur e alcohol) rarely mixed drink Comments No Sex and Gender Information Value Date Recorded Sex Assigned at Not on file Legal Sex Female 11:29 AM CDT Gender Identity Not on file Sexual Orientation Not on file Last Filed Vital Signs Vital Sign Reading Time Taken Comments Blood Pressure 119/79 03/26/2025 9:52 AM CDT Pulse 74 03/26/2025 9:52 AM CDT Temperature 36.8 C (98.2 F) 06/10/2022 10:33 AM DENTAL EQUIPMENT MECHANIC Respiratory Rate 16 06/10/2022 10:33 AM DENTAL EQUIPMENT MECHANIC Oxygen Saturation 100% 10/07/2021 1:20 PM CDT Inhaled Oxygen Concentration - - Weight 88 kg (194 lb) 03/26/2025 9:52 AM CDT Height 170.2 cm (5' 7) 03/26/2025 9:52 AM CDT Body Mass Index 30.38 03/26/2025 9:52 AM CDT Plan of Treatment Upcoming Encounters Date Type Department Care Team (Late st Contact Info) Description 08/01/2025 9:30 AM DENTAL EQUIPMENT MECHANIC Appointment [facility] [address] [place] [address] Ayad Thao MD [address] [place] [address] [address] DE[place] [address] 08/01/2025 10:45 AM DENTAL EQUIPMENT MECHANIC Office Visit [facility] - [facility]NT [address] [place] [address] Ayad Thao MD [address] [place] [address] [address] [place] [address] Health Maintenance Due Date Last Done Comments MAMMOGRAM 1981 HIV SCREENING 1996 HEPATITIS C SCREENING 08/15/1999 DTAP/TDAP/TD VACCINES (1 - Tdap) 2000 HEPATITIS B VACCINE (1 of 3 - 19+ 3-dose series) 2000 PNEUMOCOCCAL VACCINE (1 of 2 - PCV) 2000 PAP SMEAR 2002 HPV VACCINE (1 - 3-dose SCDM series) 2008 DEPRESSION SCREENING 07/10/2024 COVID-19 VACCINE (5 - 2024- season) 2025 08/16/2021, 12/22/2020, 12/03/2020, Additional history exists INFLUENZA VACCINE (#1) 2025 , 04/28/2020, 04/02/2020 SCREENING FOR DIABETES 03/26/2025 10/07/2021 ZOSTER VACCINE (1 of 2) 2031 HIB [...] Patient-Stated? Author Medication Management General On track( 022 1:56 PM CDT) No Lavern Awad, RN Note: Expected end date: ongoing Interventions: Take all medications as prescribed Let your doctor know right away about any changes in your medications Make sure to request a refill of your medication at least one week prior to your last dose Safety General On track( 022 1:56 PM CDT) No Lavern Awad, RN Note: Expected end date: ongoing Interventions: [...] Procedure Name Priority Date/Time Associated Diagnosis Comments MT LARYNGOSCOPY,FLEX FIBER,DIAGNOSTIC Routine 03/26/2025 12:42 PM CDT Lesion of soft palate MRI BRAIN OUTSIDE Routine 02/05/2025 9:2 6 AM CDT COMPREHENSIVE METABOLIC PANEL Routine 10/07/2021 4:12 PM CDT Elevated transaminase level from Last 3 Months or Most Recently Relevant to Health Maintenance Results * MT LARYNGOSCOPY,FLEX FIBER,DIAGNOSTIC (03/26/2025 12:42 PM CDT) Narrative Pau Garduno MD - 03/26/2025 12:42 PM CDT Pau Garduno MD 03/26/2025 1:54 PM Procedure Note Endoscopy Type: Laryngoscopy without stroboscopy [address]402 Endoscope: Flexible 4mm Scope Anesthesia: Lidocaine 2% and Neosynephrine 1/2% (nasal) Procedure Details: The patient was sitting upright in a chair with the head in a slightly anterior sniffing position. The topical anesthesia was administered and then adequate time was allowed for an anesthetic effect. The endoscope was passed thru the nasal cavity with the tongue retracted anteriorly. The tip of the endoscope was positioned in the oropharynx which allowed a complete view of the base of tongue, vallecula, pyriform recesses, epiglottis, bilateral true and false vocal folds, the interarytenoid and post cricoid region, and the immediate subglottis. Findings: right nasal cavity clear, normal inferior and middle turbinates and middle meatus; there is a vascular appearing, blue soft palatal lesion at the right velum that is non-obstructive of the right choana. Posterior oropharynx without lesions. Bilateral palatine tonsils appear normal, 1+ without ulceration or masses. Normal glottis, vocal fold motion bilaterally. Condition: Stable. Patient tolerated procedure well. Complications: None Dr. Thao was present for the entirety of the procedure. Ayad Thao MD PROCEDURE/MINOR SURGICAL ORDERAB LES Final Result * MRI Brain Outside (02/05/2025 9:26 AM CDT) Narrative [facility] - 02/27/2025 9:26 AM CDT This is a study from an outside facility that has been uploaded into PACS. us Provider [facility] Final Result [facility] * (ABNORMAL) COMPREHENSIVE METABOLIC PANEL (10/07/2021 4:12 PM CDT) BUN 13 7 - 26 mg/dL 10/07/2021 5:05 PM [facility] Creatinine 0.71 0.56 - 0.96 mg/dL 10/07/2021 5:05 PM [facility] Sodium 143 136 - 145 mmol/L 10/07/2021 5:05 PM [facility] Potassium 4.3 3.5 - 4.5 mmol/L 10/07/2021 5:05 PM [facility] Chloride 103 98 - 107 mmol/L 10/07/2021 5:05 PM [facility] CO2 26 22 - 29 mmol/L 10/07/2021 5:05 PM [facility] Glucose 89 70 - 115 mg/dL 10/07/2021 5:05 PM [facility] Calcium 10.9(H) 8.4 - 10.2 mg/dL 10/07/2021 5:05 PM [facility] Protein Total 8.9(H) 6.0 - 8.3 g/dL 10/07/2021 5:05 PM [facility] Albumin 4.8 3.4 - 5.0 g/dL 10/07/2021 5:05 PM [facility] Bilirubin Total 0.5 0.2 - 1.2 mg/dL 10/07/2021 5:05 PM [facility] Alkaline Phosphatase 77 40 - 150 U/L 10/07/2021 5:05 PM [facility] ALT 84(H) 5 - 55 U/L 10/07/2021 5:05 PM [facility] AST 95(H) 5 - 34 U/L 10/07/2021 5:05 PM [facility] Anion Gap 18 8 - 18 10/07/2021 5:05 PM [facility] BUN/Creatinine Ratio 18 7 - 23 10/07/2021 5:05 PM CDT [facility] Osmolality Calculated 296 270 - 300 mOsm/kg 10/07/2021 5:05 PM T [facility] Albumin/Globulin Ratio 1.2 1.1 - 2.3 10/07/2021 5:05 PM CDT [facility] eGFR by CKD-EPI >90 >=90 mL/min/1.7 3 m2 10/07/2021 5:05 PM T [facility] Blood BLOOD SPECIMEN / Unknown Lab Venipuncture / Unknown 10/07/2021 4:12 PM CDT 10/07/2021 4:38 PM CDT [facility] - CHEMISTRY ORDERABLES Final Result [facility] [address] [place] [address], [facility] [phone] from Last 3 Months or Most Recently Relevant to Health Maintenance Insurance [facility] Care Teams Aviation Safety Officer Relationship Specialty Start Date End Date Albert Kwok MD [address] [place] [id number] PCP - General Family Medicine 02/21/25
--- OUTSIDE RECORDS SUMMARY | 2025-05-05 13:45 | XMS_ITS | Patient Health Record ---
Author Organization [facility] Address [address] [place] [address] Care Team Providers Care Director [facility] Name Role Phone Tish Guzman Primary Care Provider [phone] Emily Hou Unavailable [phone] Jose Maria Huber Unavailable [phone] Allergies No Known Allergies Results Component Value Reference Range Notes Urinalysis In-House, Routine Reviewed date:05/14/2024 02:43:30 PM Interpretation: Performing Lab: Notes/Report: Leukocytes trace Nitrite, Urine neg Urobilinogen,Semi-Qn 0.2 Protein neg pH 6.5 Occult Blood neg Specific [place] 1.025 Ketones neg Bilirubin neg Glucose neg TSH Rfx on Abnormal to Free T4 Reviewed date:05/20/2024 11:20:55 AM Interpretation:Normal Performing Lab:[facility] [place], [address] [place] [address], Phone - [phone], Director - [facility] Notes/Report: Test(s) 368707- Atopobium vaginae; 858050- BVAB 2; 835462- Megasphaera 1 was developed and its performance characteristics determined by [employer]. It has not been cleared or approved by the Food and Drug Administration. Test(s) 297808-Kwjzsbo albicans, KAVITHA; 642038-Twyckvl glabrata, KAVITHA was developed and its performance characteristics determined by [employer]. It has not been cleared or approved by the Food and Drug Administration. TSH 2.080 0.450-4.500 uIU/mL Urine Culture, Routine* Reviewed date:05/20/2024 11:20:54 AM Interpretation:Normal Performing Lab:[facility], Phone - [phone], Director - [facility] Notes/Report: Test(s) 520687- Atopobium vaginae; 946644- BVAB 2; 134753- Megasphaera 1 was developed and its performance characteristics determined by [facility]. It has not been cleared or approved by the Food and Drug Administration. Test(s) 727318-Nlotuxp albicans, KAVITHA; 749482-Buamxxz glabrata, KAVITHA was developed and its performance characteristics determined by [facility]. It has not been cleared or approved by the Food and Drug Administration. Test(s) 577419- Atopobium vaginae; 797968- BVAB 2; 046479- Megasphaera 1 was developed and its performance characteristics determined by [facility]. It has not been cleared or approved by the Food and Drug Administration. Test(s) 630452-Fbqkgtq albicans, KAVITHA; 729227-Ddbjfbk glabrata, KAVITHA was developed and its performance characteristics determined by [facility]. It has not been cleared or approved by the Food and Drug Administration. Urine Culture, Routine Final report Result 1 Mixed urogenital hang 10,000-25,000 colony forming units per mL C-Reactive Protein, Quant Reviewed date:05/20/2024 11:20:54 AM Interpretation:Normal Performing Lab:[facility], Phone - [phone], Director - [facility] Notes/Report: Test(s) 362803- Atopobium vaginae; 296106- BVAB 2; 757991- Megasphaera 1 was developed and its performance characteristics determined by [facility]. It has not been cleared or approved by the Food and Drug Administration. Test(s) 412977-Grbhedl albicans, KAVITHA; 353695-Dnhlyvu glabrata, KAVITHA was developed and its performance characteristics determined by [facility]. It has not been cleared or approved by the Food and Drug Administration. C-Reactive Protein, Quant 1 0-10 mg/L T3 Uptake* Reviewed date:05/20/2024 11:20:54 AM Interpretation:Normal Performing Lab:[facility], Phone - [phone], Director - [facility] Notes/Report: Test(s) 382670- Atopobium vaginae; 154485- BVAB 2; 196807- Megasphaera 1 was developed and its performance characteristics determined by [facility]. It has not been cleared or approved by the Food and Drug Administration. Test(s) 095236-Jnejlhw albicans, KAVITHA; 900067-Urfjhgd glabrata, KAVITHA was developed and its performance characteristics determined by [facility]. It has not been cleared or approved by the Food and Drug Administration. T3 Uptake 25 24-39 % NuSwab Vaginitis Plus (VG+) (431778) Reviewed date:05/20/2024 11:20:54 AM Interpretation:Abnormal Performing Lab:[facility], [address] [place], [place], Phone - [phone], Director - [facility] Notes/Report: Test(s) 883193- Atopobium vaginae; 546297- BVAB 2; 542376- Megasphaera 1 was developed and its performance characteristics determined by [facility]. It has not been cleared or approved by the Food and Drug Administration. Test(s) 442720-Rqqstll albicans, KAVITHA; 104313-Yegjpdr glabrata, KAVITHA was developed and its performance characteristics determined by [facility]. It has not been cleared or approved [...] gonorrhoeae, KAVITHA Negative Negative Reason For Referral No Information Medications Medication SIG (Take, Route, Frequency, Duration) Notes Start Date End Date Status Pioglitazone HCl 30 MG 1 tablet Orally O nce a day; Duration: 30 day(s) Unknown Atorvastatin Calcium 20 MG TAKE 1 TABLET BY MOUTH EVERYDAY AT BEDTIME Oral; Duration: 90 Days Unknown metroNIDAZOLE 500 MG 1 tablet Orally Twi ce daily; Duration: 7 days 05/20/2024 Unknown Vraylar 3 MG Oral; Duration: 30 Days Unknown Farxiga 5 MG 1 tablet Orally Once a day; Duration: 30 day(s) Unknown Fenofibrate 160 MG TAKE 1 TABLET BY KASEY TH EVERYDAY AT BEDTIME Oral; Duration: 90 Days Unknown medroxyPROGESTERone Acetate 150 MG/ML 150 MG INTRAMUSCULARLY EVERY 3 MONTHS Intramuscular; Duration: 90 Days Unknown ZyPREXA Zydis 5 MG 0.5-1 tablet on the tongue and allow to dissolve Orally Once a day; Duration: 30 days Active traZODone HCl 150 MG 2 tablets at bedtim e as needed Orally Once a day; Duration: 30 days Active Strattera 80 MG 1 capsule in the morning Orally Once a day; Duration: 30 days Active fluvoxaMINE Maleate 100 MG as directed O rally One tablet in the morning AND Two tablets at night; Duration: 30 days Active buPROPion HCl ER (XL) 300 MG 1 tablet in the morning Orally Once a day; Duration: 30 days Active Vraylar 6 MG 1 capsule Orally Claire ry other day; Duration: 30 days Active Pilocarpine HCl 7.5 MG 1 tablet Orally t wice a day; Duration: 30 days Active oxyBUTYnin Chloride ER 10 MG Oral; Duration: 90 Days Active Lidocaine 5 % APPLY 1 PATCH TO SKI N DAILY LEAVE ON MOST PAINFUL AREA FOR UP TO 12 HRS. MAX 1 PATCH IN 24HR PERIOD External; Duration: 15 Days Active guanFACINE HCl ER 1 MG 1 tablet Orally o nce a day; Duration: 28 days Active Lidocaine 5 % 1 patch remove after 12 hours Externally Once a day; Duration: 5 days 08/07/2024 Active Meloxicam 7.5 MG 1 tablet Orally Once a day; Duration: 30 days As needed for pain 08/07/2024 Active Depo-Provera Not-Eitan ing guanFACINE HCl ER 1 MG 1 tablet Orally daily; Duration: 30 days at night Active Ondansetron 4 MG 1 tablet on the tong ue and allow to dissolve Orally Once a day; Duration: 30 days 07/30/2024 Active Strattera 100 MG 1 capsule in the morning Orally Once a day; Duration: 90 days Unknown buPROPion HCl ER (SR) 100 MG 1 tablet Orally Once a day; Duration: 90 days in the morning Unknown Vitamin E 400 UNIT 1 capsule Orally Onc e a day; Duration: 30 day(s) 03/11/2022 Active Cyclobenzaprine HCl 10 MG 1 tablet at bedtime as needed Orally Once a day; Duration: 30 days As needed 08/07/2024 Active Social History Tobacco Use: Social History Observation Description Date Details (start date - stop date) Current Smoker 07/21/1994 - NA Sex Assigned At : Social History Observation Description Sex Assigned At Female [facility] Question Answer Notes Date Completed/Updated: 05/22/2024 What is your current housing situation? I have h ousing Are you worried about losing your housing? No What is the highest level of school that you have finished? 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 Stress is when someone feels tense, nervous, anxious, or can\t sleep at night because their mind is troubled Very much In the past year have you sp ent more than 2 nights in a row in a skilled nursing, fdc, usp center, or juvenile correctional facility? No Are [...] 5 Tobacco Control (Standard) Question Answer Notes Additional Findings: Tobacco user e-cigarette Tobacco use: Current smoker When did you start smoking? 07/21/1994 How often do you smoke cigarettes? Every day How many cigarettes a day do you smoke? 6-10 How soon after you wake up do you smoke your fir st cigarette? 6-30 minutes Are you interested in quitting? Not ready to stephanie t Problems Problem Type SNOMED Code ICD Code Onset Dates Problem Status W/U Status Risk Notes Problem Tobacco user (673618833) Nicotine dependence, unspecified, uncomplicated (F17.200) Active confirmed Problem Generalized anxiety disorder (22335978) Generalized anxiety disorder (F41.1) Active confirmed Problem Borderline personality disorder (36385289) Borderline personality disorder (F60.3) Active confirmed Problem Sleep disorder (27274480) Sleep disorder, unspecified (G47.9) Active confirmed Problem Mood disorder (04588854) Mood disorder (F39) Active confirmed r/o bipolar vs severe episode of MDD Problem Attention deficit hyperactivity disorder (664671503) ADHD (attention deficit hyperactivity disorder), combined type (F90.2) Active confirmed Problem Chronic pain (10911290) Chronic pain (G89.29) Active confirmed Problem Overweight (093405558) Over weight (E66.3) Active confirmed Problem Diabetes mellitus (80994067) Diabetes mellitus (E11.9) Active confirmed Problem Laboratory test result abnormal (153796987) Abnormal laboratory test result (R89.9) Active confirmed Problem Memory impairment (674656029) Memory impairment (R41.3) Active confirmed Problem Bipolar disorder (89064445) Bipolar depression (F31.9) Active confirmed Vital Signs Heart Rate 76 /min 02/18/2025 Temperature 98.7 degrees Fahrenheit 02/18/2025 Respiratory Rate 16 /min 02/18/2025 Oximetry 100 % 02/18/2025 Blood pressure diastolic 70 mm Hg 02/18/2025 Height 68 in 02/18/2025 Blood pressure systolic 126 mm Hg 02/18/2025 Weight 193.2 lbs 02/18/2025 BMI 29.37 kg/m2 02/18/2025 Encounters Encounter Location Date Provider Diagnosis [address] [place] [address] 05/06/2024 Tish Guzman [address] [place] [address] 05/09/2024 Tish Guzman [address] [place] [address] 05/13/2024 Emily Hou [address] [place] [address] 05/15/2024 Tish Guzman [address] [place] [address] 05/20/2024 Tish Guzman Vaginitis N76.[address] [address] 05/23/2024 Tish Guzman [address] [address] 06/24/2024 Emily Hou [address] [address] 07/30/2024 Emily Hou [address] [address] 08/28/2024 Tish Guzman [facility] [address] [address] 09/10/2024 Jose Maria Huber [address] [address] 11/21/2024 Emily Hou Bipolar depression F31.9 and Attention and concentration deficit R41.[address] [address] 11/22/2024 Emily Hou [address] [address] 11/25/2024 Emily Hou [facility] [address] [place] [address] 01/14/2025 Emily Hou [facility] [address] [place] [address] 03/18/2025 Emily Hou [facility] [address] [place] [address] 03/28/2025 Emily Hou [address] [place] [address] 08/29/2024 Tish Guzman Shoulder pain, right M25.511 ; Follow-up exam Z09 and Chronic pain G89.29 [address] [place] [address] 05/14/2024 Tish Guzman Symptoms of urinary tract infection R39.9 ; Abnormal laboratory test result R89.9 ; Chronic pain G89.29 ; Vaginal discharge N89.8 ; Abdominal pain, acute R10.9 ; Chest pain at rest R07.9 and Diabetes mellitus E11.[address] [place] [address] 08/07/2024 Tish Guzman Nutritional counseling Z71.3 ; Shoulder pain, right M25.511 ; Nicotine dependence, unspecified, uncomplicated F17.200 and Chronic pain G89.29 [facility] [place] [address] 03/24/2025 Emily Hou [address] [place] [address] 08/20/2024 Emily Hou Nutritional counseling Z71.3 ; Borderline personality disorder F60.3 ; Bipolar depression F31.9 ; Generalized anxiety disorder F41.1 ; Sleep disorder, unspecified G47.9 ; Attention and concentration deficit R41.840 and Memory impairment R41.3 [address] [place] [address] 05/21/2024 Emily Hou Borderline personality disorder F60.3 ; Bipolar depression F31.9 ; Generalized anxiety disorder F41.1 ; Sleep disorder, unspecified G47.9 ; Attention and concentration deficit R41.840 ; Memory impairment R41.3 and Nutritional counseling Z71.3 [facility] [place] [address] 06/04/2024 Emily Hou Borderline personality disorder F60.3 ; Bipolar depression F31.9 ; Generalized anxiety disorder F41.1 ; Sleep disorder, unspecified G47.9 ; Attention and concentration deficit R41.840 ; Memory impairment R41.3 and Nutritional counseling Z71.3 [address] [place] [address] 06/18/2024 Emily Hou Nutritional counseling Z71.3 ; Borderline personality disorder F60.3 ; Bipolar depression F31.9 ; Generalized anxiety disorder F41.1 ; Sleep disorder, unspecified G47.9 ; Attention and concentration deficit R41.840 and Memory impairment R41.3 [facility] [address] [place] [address] 08/06/2024 Emily Hou Nutritional counseling Z71.3 ; Borderline personality disorder F60.3 ; Bipolar depression F31.9 ; Generalized anxiety disorder F41.1 ; Sleep disorder, unspecified G47.9 ; Attention and concentration deficit R41.840 and Memory impairment R41.3 [facility] [address] [place] [address] 09/17/2024 Emily Hou Nutritional counseling Z71.3 ; Borderline personality disorder F60.3 ; Bipolar depression F31.9 ; Generalized anxiety disorder F41.1 ; Sleep disorder, unspecified G47.9 ; Attention and concentration deficit R41.840 and Memory impairment R41.3 [facility] [address] [place] [address] 09/24/2024 Emily Hou Nutritional counseling Z71.3 ; Nicotine dependence, unspecified, uncomplicated F17.200 ; Borderline personality disorder F60.3 ; Bipolar depression F31.9 ; Generalized anxiety disorder F41.1 ; Sleep disorder, unspecified G47.9 ; Attention and concentration deficit R41.840 and Memory impairment R41.3 [facility] [address] [place] [address] 10/08/2024 Emily Hou Over weight E66.3 ; Nutritional counseling Z71.3 ; Nicotine dependence, unspecified, uncomplicated F17.200 ; Borderline personality disorder F60.3 ; Bipolar depression F31.9 ; Generalized anxiety disorder F41.1 ; Sleep disorder, unspecified G47.9 ; Attention and concentration deficit R41.840 and Memory impairment R41.3 [facility] [address] [facility] [place] [address] 10/22/2024 Emily Hou Over weight E66.3 ; Nutritional counseling Z71.3 ; Nicotine dependence, unspecified, uncomplicated F17.200 ; Borderline personality disorder F60.3 ; Bipolar depression F31.9 ; Generalized anxiety disorder F41.1 ; Sleep disorder, unspecified G47.9 ; Attention and concentration deficit R41.840 and Memory impairment R41.3 [facility] [address] [place] [address] 11/05/2024 Emilycele Hou Over weight E66.3 ; Nutritional counseling Z71.3 ; Nicotine dependence, unspecified, uncomplicated F17.200 ; Borderline personality disorder F60.3 ; Bipolar depression F31.9 ; Generalized anxiety disorder F41.1 ; Sleep disorder, unspecified G47.9 ; Attention and concentration deficit R41.840 and Memory impairment R41.3 [facility] [address] [place] [address] 12/10/2024 Emily Hou Over weight E66.3 ; Nutritional counseling Z71.3 ; Nicotine dependence, unspecified, uncomplicated F17.200 ; Borderline personality disorder F60.3 ; Bipolar depression F31.9 ; Generalized anxiety disorder F41.1 ; Sleep disorder, unspecified G47.9 ; Attention and concentration deficit R41.840 and Memory impairment R41.3 [facility] [address] [place] [address] 01/14/2025 Emily Hou Over weight E66.3 ; Nutritional counseling Z71.3 ; Nicotine dependence, unspecified, uncomplicated F17.200 ; Borderline personality disorder F60.3 ; Bipolar depression F31.9 ; Generalized anxiety disorder F41.1 ; Sleep disorder, unspecified G47.9 ; Attention and concentration deficit R41.840 and Memory impairment R41.3 [facility] [place] [address] 02/18/2025 Emily Hou Over weight E66.3 ; Nutritional counseling Z71.3 ; Nicotine dependence, unspecified, uncomplicated F17.200 ; Borderline personality disorder F60.3 ; Bipolar depression F31.9 ; Generalized anxiety disorder F41.1 ; Sleep disorder, unspecified G47.9 ; Attention and concentration deficit R41.840 and Memory impairment R41.3 [facility] [place] [address] 03/18/2025 Emily Hou ADHD (attention deficit hyperactivity disorder), combined type F90.2 ; Over weight E66.3 ; Nutritional counseling Z71.3 ; Nicotine dependence, unspecified, uncomplicated F17.200 ; Borderline personality disorder F60.3 ; Bipolar depression F31.9 ; Generalized anxiety disorder F41.1 ; Sleep disorder, unspecified G47.9 and Memory impairment R41.[address] [place] [address] 04/24/2025 Emily Hou ADHD (attention deficit hyperactivity disorder), combined type F90.2 ; Over weight E66.3 ; Nutritional counseling Z71.3 ; Nicotine dependence, unspecified, uncomplicated F17.200 ; Borderline personality disorder F60.3 ; Bipolar depression F31.9 ; Generalized anxiety disorder F41.1 ; Sleep disorder, unspecified G47.9 and Memory impairment R41.[address] [address] 11/27/2024 Emily Hou Over weight E66.3 ; Nutritional counseling Z71.3 ; Nicotine dependence, unspecified, uncomplicated F17.200 ; Borderline personality disorder F60.3 ; Bipolar depression F31.9 ; Generalized anxiety disorder F41.1 ; Sleep disorder, unspecified G47.9 ; Attention and concentration deficit R41.840 and Memory impairment R41.3 Assessments Encounter Date Diagnosis (ICD Code) Assessment Notes Treatment Notes Treatment Clinical Notes Section Notes 05/14/2024 Abnormal laboratory test result (ICD-10 - R89.9) 05/21/2024 Borderline personality disorder (ICD-10 - F60.3) Strongly encouraged therapy/counseling. 05/14/2024 Symptoms of urinary tract infection (ICD-10 - R39.9) 05/20/2024 Vaginitis (ICD-10 - N76.0) 05/21/2024 Bipolar depression (ICD-10 - F31.9) 06/04/2024 Borderline personality disorder (ICD-10 - F60.3) Strongly encouraged therapy/counseling. 06/04/2024 Bipolar depression (ICD-10 - F31.9) Small increase in bupropion as also on Strattera. Increased for depression, motivation, energy. Discussed r/b/se. 08/06/2024 Nutritional counseling (ICD-10 - Z71.3) 08/29/2024 Shoulder pain, right (ICD-10 - M25.511) 08/29/2024 Follow-up exam (ICD-10 - Z09) 09/24/2024 Nutritional counseling (ICD-10 - Z71.3) 10/08/2024 Over weight (ICD-10 - E66.3) 10/22/2024 Over weight (ICD-10 - E66.3) 11/05/2024 Over weight (ICD-10 - E66.3) 11/21/2024 Bipolar depression (ICD-10 - F31.9) 02/18/2025 Over weight (ICD-10 - E66.3) 03/18/2025 ADHD (attention deficit hyperactivity disorder), combined type (ICD-10 - F90.2) Started for restlessness/hyperact ivity Goal to stop Lilian Jeffers, work on polypharm 04/24/2025 ADHD (attention deficit hyperactivity disorder), combined type (ICD-10 - F90.2) Guanfacine ER for restlessness/hyperact ivity, has been doing better with this she feels, continue at this time. Goal to stop Lilian Jeffers, work on polypharm 08/20/2024 Nutritional counseling (ICD-10 - Z71.3) 08/07/2024 Shoulder pain, right (ICD-10 - M25.511) 08/07/2024 Nutritional counseling (ICD-10 - Z71.3) 06/18/2024 Nutritional counseling (ICD-10 - Z71.3) 01/14/2025 Over weight (ICD-10 - E66.3) 12/10/2024 Over weight (ICD-10 - E66.3) 11/27/2024 Over weight (ICD-10 - E66.3) 09/17/2024 Nutritional counseling (ICD-10 - Z71.3) 09/17/2024 Borderline personality disorder (ICD-10 - F60.3) Strongly encouraged therapy/counseling. 11/27/2024 Nutritional counseling (ICD-10 - Z71.3) 12/10/2024 Nutritional counseling (ICD-10 - Z71.3) 01/14/2025 Nutritional counseling (ICD-10 - Z71.3) 08/07/2024 Nicotine dependence, unspecified, uncomplicated (ICD-10 - F17.200) 06/18/2024 Borderline personality disorder (ICD-10 - F60.3) Strongly encouraged therapy/counseling. 04/24/2025 Over weight (ICD-10 - E66.3) 08/20/2024 Borderline personality disorder (ICD-10 - F60.3) Strongly encouraged therapy/counseling. 03/18/2025 Over weight (ICD-10 - E66.3) 02/18/2025 Nutritional counseling (ICD-10 - Z71.3) 11/05/2024 Nutritional counseling (ICD-10 - Z71.3) 08/29/2024 Chronic pain (ICD-10 - G89.29) 11/21/2024 Attention and concentration deficit (ICD-10 - R41.840) 10/22/2024 Nutritional counseling (ICD-10 - Z71.3) 10/08/2024 Nutritional counseling (ICD-10 - Z71.3) 09/24/2024 Nicotine dependence, unspecified, uncomplicated (ICD-10 - F17.200) 08/06/2024 Borderline personality disorder (ICD-10 - F60.3) Strongly encouraged therapy/counseling. 06/04/2024 Generalized anxiety disorder (ICD-10 - F41.1) Take as prescribed. Reviewed purpose (mood stability), benefits, and risks - low blood pressure, metabolic syndrome with high cholesterol or high blood sugars, change in cardiac conduction, nausea, vomiting, temporary or permanent movement disorders, and akathisia. 05/21/2024 Generalized anxiety disorder (ICD-10 - F41.1) Discussed r/b/se of treatment plan. 05/14/2024 Chronic pain (ICD-10 - G89.29) 05/14/2024 Vaginal discharge (ICD-10 - N89.8) 06/04/2024 Sleep disorder, unspecified (ICD-10 - G47.9) 05/21/2024 Sleep disorder, unspecified (ICD-10 - G47.9) 08/06/2024 Bipolar depression (ICD-10 - F31.9) [place] agreement to continue current regimen. 09/24/2024 Borderline personality disorder (ICD-10 - F60.3) Strongly encouraged therapy/counseling. 10/22/2024 Nicotine dependence, unspecified, uncomplicated (ICD-10 - F17.200) 10/08/2024 Nicotine dependence, unspecified, uncomplicated (ICD-10 - F17.200) 11/05/2024 Nicotine dependence, unspecified, uncomplicated (ICD-10 - F17.200) 02/18/2025 Nicotine dependence, unspecified, uncomplicated (ICD-10 - F17.200) 03/18/2025 Nutritional counseling (ICD-10 - Z71.3) 04/24/2025 Nutritional counseling (ICD-10 - Z71.3) 08/07/2024 Chronic pain (ICD-10 - G89.29) 08/20/2024 Bipolar depression (ICD-10 - F31.9) [place] agreement to continue current regimen. 06/18/2024 Bipolar depression (ICD-10 - F31.9) [place] agreement to continue current regimen. 01/14/2025 Nicotine dependence, unspecified, uncomplicated (ICD-10 - F17.200) 12/10/2024 Nicotine dependence, unspecified, uncomplicated (ICD-10 - F17.200) 11/27/2024 Nicotine dependence, unspecified, uncomplicated (ICD-10 - F17.200) 09/17/2024 Bipolar depression (ICD-10 - F31.9) [place] agreement to continue current regimen. 09/17/2024 Generalized anxiety disorder (ICD-10 - F41.1) Take as prescribed. Reviewed purpose (mood stability), benefits, and risks - low blood pressure, metabolic syndrome with high cholesterol or high blood sugars, change in cardiac conduction, nausea, vomiting, temporary or permanent movement disorders, and akathisia. 11/27/2024 Borderline personality disorder (ICD-10 - F60.3) Strongly encouraged therapy/counseling. Continue current regimen with addition of lamotrigine to further target depressive symptoms. 12/10/2024 Borderline personality disorder (ICD-10 - F60.3) Strongly encouraged therapy/counseling. Continue current regimen with addition of lamotrigine to further target depressive symptoms. 01/14/2025 Borderline personality disorder (ICD-10 - F60.3) Strongly encouraged therapy/counseling. Continue current regimen with addition of lamotrigine to further target depressive symptoms. 06/18/2024 Generalized anxiety disorder (ICD-10 - F41.1) Take as prescribed. Reviewed purpose (mood stability), benefits, and risks - low blood pressure, metabolic syndrome with high cholesterol or high blood sugars, change in cardiac conduction, nausea, vomiting, temporary or permanent movement disorders, and akathisia. 08/20/2024 Generalized anxiety disorder (ICD-10 - F41.1) Take as prescribed. Reviewed purpose (mood stability), benefits, and risks - low blood pressure, metabolic syndrome with high cholesterol or high blood sugars, change in cardiac conduction, nausea, vomiting, temporary or permanent movement disorders, and akathisia. 04/24/2025 Nicotine dependence, unspecified, uncomplicated (ICD-10 - F17.200) 03/18/2025 Nicotine dependence, unspecified, uncomplicated (ICD-10 - F17.200) 03/18/2025 Borderline personality disorder (ICD-10 - F60.3) Strongly encouraged therapy/counseling. Continue current regimen with addition of lamotrigine to further target depressive symptoms. 02/18/2025 Borderline personality disorder (ICD-10 - F60.3) Strongly encouraged therapy/counseling. Continue current regimen with addition of lamotrigine to further target depressive symptoms. 11/05/2024 Borderline personality disorder (ICD-10 - F60.3) Strongly encouraged therapy/counseling. Continue current regimen with addition of lamotrigine to further target depressive symptoms. 09/24/2024 Bipolar depression (ICD-10 - F31.9) [place] agreement to continue current regimen. 10/08/2024 Borderline personality disorder (ICD-10 - F60.3) Strongly encouraged therapy/counseling. Continue current regimen. Noted anhedonia, may look to decrease Luvox at next appt. Client want to give current regimen more time, continue. 10/22/2024 Borderline personality disorder (ICD-10 - F60.3) Strongly encouraged therapy/counseling. Continue current regimen with addition of lamotrigine to further target depressive symptoms. 08/06/2024 Generalized anxiety disorder (ICD-10 - F41.1) Take as prescribed. Reviewed purpose (mood stability), benefits, and risks - low blood pressure, metabolic syndrome with high cholesterol or high blood sugars, change in cardiac conduction, nausea, vomiting, temporary or permanent movement disorders, and akathisia. 05/21/2024 Attention and concentration deficit (ICD-10 - R41.840) 05/14/2024 Abdominal pain, acute (ICD-10 - R10.9) 06/04/2024 Attention and concentration deficit (ICD-10 - R41.840) 06/04/2024 Memory impairment (ICD-10 - R41.3) 05/14/2024 Chest pain at rest (ICD-10 - R07.9) 05/21/2024 Memory impairment (ICD-10 - R41.3) 08/06/2024 Sleep disorder, unspecified (ICD-10 - G47.9) 09/24/2024 Generalized anxiety disorder (ICD-10 - F41.1) Take as prescribed. Reviewed purpose (mood stability), benefits, and risks - low blood pressure, metabolic syndrome with high cholesterol or high blood sugars, change in cardiac conduction, nausea, vomiting, temporary or permanent movement disorders, and akathisia. 10/08/2024 Bipolar depression (ICD-10 - F31.9) [place] agreement to continue current regimen. 10/22/2024 Bipolar depression (ICD-10 - F31.9) Begin [...] mg daily and titrate up as tolerated. 11/05/2024 Bipolar depression (ICD-10 - F31.9) Increase [...] mg daily and titrate up as tolerated. 02/18/2025 Bipolar depression (ICD-10 - F31.9) may look to add other mood stabilizer if needed lamotrigine with rash- stopped 04/24/2025 Borderline personality disorder (ICD-10 - F60.3) Strongly encouraged therapy/counseling. Continue current regimen with addition of lamotrigine to further target depressive symptoms. 03/18/2025 Bipolar depression (ICD-10 - F31.9) may look to add other mood stabilizer if needed lamotrigine with rash- stopped 06/18/2024 Sleep disorder, unspecified (ICD-10 - G47.9) 08/20/2024 Sleep disorder, unspecified (ICD-10 - G47.9) 01/14/2025 Bipolar depression (ICD-10 - F31.9) may look to add other mood stabilizer if needed lamotrigine with rash- stopped 12/10/2024 Bipolar depression (ICD-10 - F31.9) may look to add other mood stabilizer if needed lamotrigine with rash- stopped 11/27/2024 Bipolar depression (ICD-10 - F31.9) lamotrigine with rash- stop may look to add other mood stabilizer if needed 09/17/2024 Sleep disorder, unspecified (ICD-10 - G47.9) 09/17/2024 Attention and concentration deficit (ICD-10 - R41.840) Increase bupropion and decrease strattera for depression. Discussed r/b/se. 11/27/2024 Generalized anxiety disorder (ICD-10 - F41.1) Take as prescribed. Reviewed purpose (mood stability), benefits, and risks - low blood pressure, metabolic syndrome with high cholesterol or high blood sugars, change in cardiac conduction, nausea, vomiting, temporary or permanent movement disorders, and akathisia. 12/10/2024 Generalized anxiety disorder (ICD-10 - F41.1) [...] temporary or permanent movement disorders, and akathisia. 08/20/2024 Attention and concentration deficit (ICD-10 - R41.840) 04/24/2025 Bipolar depression (ICD-10 - F31.9) may look to add other mood stabilizer if needed lamotrigine with rash- stopped 06/18/2024 Attention and concentration deficit (ICD-10 - R41.840) 03/18/2025 Generalized anxiety disorder (ICD-10 - F41.1) Take as prescribed. Reviewed purpose (mood stability), benefits, and risks - low blood pressure, metabolic syndrome with high cholesterol or high blood sugars, change in cardiac conduction, nausea, vomiting, temporary or permanent movement disorders, and akathisia. 02/18/2025 Generalized anxiety disorder (ICD-10 - F41.1) Take [...] or permanent movement disorders, and akathisia. 10/22/2024 Generalized anxiety disorder (ICD-10 - F41.1) Take as prescribed. Reviewed purpose (mood stability), benefits, and risks - low blood pressure, metabolic syndrome with high cholesterol or high blood sugars, change in cardiac conduction, nausea, vomiting, temporary or permanent movement disorders, and akathisia. 10/08/2024 Generalized anxiety disorder (ICD-10 - F41.1) Take as prescribed. Reviewed purpose (mood stability), benefits, and risks - low blood pressure, metabolic syndrome with high cholesterol or high blood sugars, change in cardiac conduction, nausea, vomiting, temporary or permanent movement disorders, and akathisia. 09/24/2024 Sleep disorder, unspecified (ICD-10 - G47.9) 08/06/2024 Attention and concentration deficit (ICD-10 - R41.840) 05/21/2024 Nutritional counseling (ICD-10 - Z71.3) 06/04/2024 Nutritional counseling (ICD-10 - Z71.3) 05/14/2024 Diabetes mellitus (ICD-10 - E11.9) 08/06/2024 Memory impairment (ICD-10 - R41.3) 09/24/2024 Attention and concentration deficit (ICD-10 - R41.840) Discussed r/b/se. 10/08/2024 Sleep disorder, unspecified (ICD-10 - G47.9) 10/22/2024 Sleep disorder, unspecified (ICD-10 - G47.9) 11/05/2024 Sleep disorder, unspecified (ICD-10 - G47.9) 02/18/2025 Sleep disorder, unspecified (ICD-10 - G47.9) 03/18/2025 Sleep disorder, unspecified (ICD-10 - G47.9) 04/24/2025 Generalized anxiety disorder (ICD-10 - F41.1) Take as prescribed. Reviewed purpose (mood stability), benefits, and risks - low blood pressure, metabolic syndrome with high cholesterol or high blood sugars, change in cardiac conduction, nausea, vomiting, temporary or permanent movement disorders, and akathisia. 06/18/2024 Memory impairment (ICD-10 - R41.3) 08/20/2024 Memory impairment (ICD-10 - R41.3) 01/14/2025 Sleep disorder, unspecified (ICD-10 - G47.9) 12/10/2024 Sleep disorder, unspecified (ICD-10 - G47.9) 11/27/2024 Sleep disorder, unspecified (ICD-10 - G47.9) 09/17/2024 Memory impairment (ICD-10 - R41.3) 11/27/2024 Attention and concentration deficit (ICD-10 - R41.840) Discussed r/b/se. 12/10/2024 Attention and concentration deficit (ICD-10 - R41.840) Discussed r/b/se. 01/14/2025 Attention and concentration deficit (ICD-10 - R41.840) Discussed r/b/se. 04/24/2025 Sleep disorder, unspecified (ICD-10 - G47.9) 03/18/2025 Memory impairment (ICD-10 - R41.3) monitor, continue f/u with PCP 02/18/2025 Attention and concentration deficit (ICD-10 - R41.840) Discussed r/b/se. 11/05/2024 Attention and concentration deficit (ICD-10 - R41.840) Discussed r/b/se. 10/22/2024 Attention and concentration deficit (ICD-10 - R41.840) Discussed r/b/se. 10/08/2024 Attention and concentration deficit (ICD-10 - R41.840) Discussed r/b/se. 09/24/2024 Memory impairment (ICD-10 - R41.3) 10/08/2024 Memory impairment (ICD-10 - R41.3) 10/22/2024 Memory impairment (ICD-10 - R41.3) Continue f/u with PCP and monitoring symptoms. Client denies concerns today. 11/05/2024 Memory impairment (ICD-10 - R41.3) Continue f/u with PCP and monitoring symptoms. Client denies concerns today. 02/18/2025 Memory impairment (ICD-10 - R41.3) monitor, continue f/u with PCP 04/24/2025 Memory impairment (ICD-10 - R41.3) monitor, continue f/u with PCP 01/14/2025 Memory impairment (ICD-10 - R41.3) monitor, continue f/u with PCP 12/10/2024 Memory impairment (ICD-10 - R41.3) Working to get insurance situated, plan for referral to neuro again once able. Client v/u and agreement. Declines referral at this time. 11/27/2024 Memory impairment (ICD-10 - R41.3) Continue f/u with PCP and monitoring symptoms. Client denies concerns today. 05/21/2024 Other Reasons, potential benefits, potential risks, [...] May also contact the 24-hour crisis hotline ([facility]), refer to the closest emergency room [...] May also contact the 24-hour crisis hotline ([facility]), refer to the closest emergency room [...] May also contact the 24-hour crisis hotline ([facility]), refer to the closest emergency room [...] of education, treatment plan and follow up. 08/20/2024 Other Client reports improvement since being [...] May also contact the 24-hour crisis hotline ([facility]), refer to the closest emergency room [...] or vital signs. 08/29/2024 Other Patient may self-administe r their own medications or may self-administe r their own oral medications per [place] Protocol. 09/17/2024 Other Reasons, potential benefits, potential [...] May also contact the 24-hour crisis hotline ([facility]), refer to the closest emergency room [...] May also contact the 24-hour crisis hotline ([facility]), refer to the closest emergency room or [...] May also contact the 24-hour crisis hotline ([facility]), refer to the closest emergency room [...] May also contact the 24-hour crisis hotline ([facility]), refer to the closest emergency room [...] May also contact the 24-hour crisis hotline ([facility]), refer to the closest emergency room [...] May also contact the 24-hour crisis hotline ([facility]), refer to the closest emergency room [...] May also contact the 24-hour crisis hotline ([facility]), refer to the closest emergency room [...] May also contact the 24-hour crisis hotline ([facility]), refer to the closest emergency room [...] of education, treatment plan and follow up. 02/18/2025 Other Reasons, potential benefits, potential risks, interactions [...] May also contact the 24-hour crisis hotline ([facility]), refer to the closest emergency room [...] of education, treatment plan and follow up. 03/18/2025 Other Reasons, potential benefits, potential risks, interactions [...] May also contact the 24-hour crisis hotline ([facility]), refer to the closest emergency room [...] assess appearance, affect, AIMS, or vital signs. 04/24/2025 Other Reasons, potential benefits, potential risks, interactions [...] assess appearance, affect, AIMS, or vital signs. Plan Of Treatment Future Test Test Name Order Date Electrocardiogram (EKG) 10/31/2022 Insurance Providers Payer Name Payer Address Payer Phone Subscriber Number Group Number Insured Name Patient Relationship to Insured Coverage Start Date Coverage End Date [facility] [employer] [address] [place] [address] [id number] Nick Natacha Self - patient is the insured 4 5 [facility] Attn Claims Department [address] [place] [address] [id number] Leanne Romeroecca Self - patient is the insured 5 [address] [place] [address] [id number] Natacha Romero Self - patient is the insured 5 [employer] [address] [place] [address] [id number] Leanne Romeroecca Self - patient is the insured 2 4 [employer] [address] [place] [address] [id number] Natacha Romero Self - patient is the insured 2 4 [facility] Department [address] [place] [address] [phone] [id number] Natacha Romero Self - patient is the insured 5 Medical (General) History Surgical History Surgery Date(Month/Year) tubal ligation 2011 tubes (ears) Hospitalization History Reason Date(Month/Year) U 03/2022
--- OUTSIDE RECORDS SUMMARY | 2025-05-05 13:45 | XMS_ITS | Clinical Summary ---
Author Organization [facility] Address [address] [place] [id number] Care Team Providers Care Growth Hacker Name Role Phone Bhanu Highie KAROL Primary Care Provider [phone] Allergies No known active allergies Medications cyclobenzaprine [...] on file Legal Sex Female 8:31 PM [employer] Gender Identity Not on file Sexual Orientation Not on file Last Filed Vital Signs Vital Sign Reading Time Taken Comments Blood Pressure 165/97 06/07/2021 12:24 PM [employer] Pulse 76 06/07/2021 12:24 PM [employer] Temperature 36.8 C (98.3 F) 06/07/2021 10:28 AM [employer] Respiratory Rate 18 06/07/2021 12:24 PM [employer] Oxygen Saturation 100% 06/07/2021 12:24 PM [employer] Inhaled Oxygen Concentration - - Weight 113.4 kg (250 lb) 06/07/2021 10:28 AM [employer] Height 172.7 cm (5' 8) 06/07/2021 10:28 AM [employer] Body Mass Index 38.01 06/07/2021 10:28 AM [employer] Plan of Treatment Not on file Insurance [facility] Care Teams Growth Hacker Relationship Specialty Start Date End Date Ronel High NP [facility] [place] [address] PCP - General Nurse Practitioner 06/07/21
== END 2025-05-05 12:19 | disposition home or self-care (01) ==
LOC: ANHSURGERY 12:24
PROVIDERS: PCP Emergency Medicine; Visit Provider Obstetrics & Gynecology
DX: N94.6 Dysmenorrhea, unspecified (principal)
CPT/HCPCS: 36415; 85027; 86850; 86900; 86901

== ENCOUNTER 2025-05-08 02:07 | Day surgery (SDC) | payer OTHER, SELFPAY ==
--- OUTSIDE RECORDS SUMMARY | 2006-02-09 06:00 | XMS_ITS | Continuity of Care Document ---
Author Organization [facility] Address [address] [place] [address] Phone Care Team Providers Care Fork Operator Name Role Phone Keysha Oliver Unavailable Unavailable Advance Directives Directive Yes / No Effective Date File Name No Information Encounters Encounter Description Practice Location Reason(s) For Visit Diagnoses Date Provider Providers Copied on Encounter [facility], [address], [place], [place], [id number], [place] tel:[phone] [facility] [place] No Information Feb-0 3-200 6 Melody Chopra. [address] , [address], [place], [address], [place]. tel:[phone] Family History Family Member Type Diagnosis Age At Onset No Information Payers Payer name Insurance type Covered republican ID Authoriza tion(s) Medicaid [facility] [id number] Social History Type Description Quantity Date Captured Comments Sex Female Smoking Status No Information Chief Complaint And Reason For Visit No Information Reason For Referral Reason For Referral No Information History Of Present Illness Encounter Date Complaint History Of Prese nt Illness No Information Functional Status Date Functional Assessmen t No Information Instructions Date Instruction Additional Infor mation No Information Assessments Type Assessment Date No Information Patient Care Teams Name Effective Dates (start - stop) Status Members No Information
--- OUTSIDE RECORDS SUMMARY | 2024-11-19 09:20 | XMS_ITS ---
Author Organization [facility] Address [address] [place] [address] Care Team Providers Care Medical Billing Coder Name Role Phone Tish Guzman Primary Care Provider Emily Hou Unavailable [phone] REASON FOR VISIT 2 Week F/U Social History Sex Assigned At : Social History Observation Description Sex Assigned At Female Encounters Encounter Location Date Provider Diagnosis [facility] [address] [place] [address] [place] [address] 11/19/2024 Emily Hou Plan Of Treatment No Information Progress Notes * Natacha LONGO ADOB:[birth year] (44 yo F)Acc No.[id number]:11/19/2024 UNLOCKED PROGRESS NOTE Patient: Natacha ZAMORANO Provider: JIM [place], COOK APPRENTICE PASTRY, SENIOR SQL SERVER DEVELOPER-C :1980 A ge:44 Y S ex:Female Date:11/19/2024 Phone: Address:[address] [place] [address] [id number] Pcp:Tish Guzman Subjective: * Chief Complaints: * 1 . 2 Week F/U. * Medical History: Objective: * Vitals: Assessment: Plan: * Treatment: * * Electronic signature of Tracy Hou , [id number] on 05/08/2025 at 02:09 AM CDT Sign off status: Pending * Provider: Katja Hou MSN, COOK APPRENTICE PASTRY, SENIOR SQL SERVER DEVELOPER-C Date: 0 11/19/2024 Generated for Romeliai ng/Fadeiong/eTransmitting on: 02:09 AM CDT
--- OUTSIDE RECORDS SUMMARY | 2025-03-24 06:00 | XMS_ITS ---
Author Organization [facility] Address [address] [place] [address] Care Team Providers Care Telegraphic Typewriter Repairer Name Role Phone Tish Guzman Primary Care Provider Emily Hou Unavailable [phone] REASON FOR VISIT complete forms ASRS and ADHD. Please inform Tala Julio when forms are completed. Social History Sex Assigned At : Social History Observation Description Sex Assigned At Female Encounters Encounter Location Date Provider Diagnosis [facility] [address] [facility] [place] [address] 03/24/2025 Emily Hou Plan Of Treatment No Information Progress Notes * Natacha LONGO ADOB:[birth year] (44 yo F)Acc No.[id number]:03/24/2025 UNLOCKED PROGRESS NOTE Progress Note Patient: Natacha ZAMORANO Provider: JIM Dunn, HOME HEALTH TRAVEL OT, PT SITTER-C :1980 A ge:44 Y S ex:Female Date:03/24/2025 Phone: Address:[address] [place], [place] [address] Pcp:Tish Guzman Subjective: * Chief Complaints: * 1 . complete forms ASRS and ADHD. Please inform Tala Julio when forms are completed.. * Medical History: Objective: * Vitals: Assessment: Plan: * Treatment: * * Electronic signature of Tracy Hou , [id number] on 05/08/2025 at 02:09 AM CDT Sign off status: Pending * Provider: JIM Dunn, HOME HEALTH TRAVEL OT, PT SITTER-C Date: 0 03/24/2025 Generated for Ophelia gaspar/Monalisa/Roberto on: 1 02:09 AM CDT
--- NOTE | 2025-05-01 09:34 | SUR.PREOP ---
[facility] has started construction of its new state of the art ER which will open Spring 2026. With this, we anticipate parking may be a challenge for some our surgical patients and families. Parking spaces are limited but are available for all Surgical, obstetrics, and ER patients sharing this lot. If you arrive and find you are having a hard time finding a parking space, please note that we understand the challenges, please drive around the hospital and park near Hospital Entrance 1. When you enter this entrance, you can ask a volunteer to direct or take you back to the surgical waiting area to check in. We appreciate everyone?s understanding of these expected challenges while we build for your future. Report to the Outpatient Waiting Room, entrance under the green pavilion located off [address], at time _7AM__ on date __05/08/25__. Planned Procedure Time: _9AM__.? Time changes happen often and if your time is changed the preop area will call you the afternoon before. - You and your visitor will be asked to self-screen and do not enter if you have any COVID symptoms. Please call surgeon if you need to reschedule. - A mask is optional within the hospital at this time. Patients may have clear liquids (water, carbonated beverages, clear teas, apple juice) until 3 hours prior to surgery with a maximum of 20 ounces. - No food from midnight until time of surgery and no smoking, or chewing tobacco (or any form of nicotine). No chewing gum, candy or mints. Take only the following medications with a SIP of water on the morning of surgery: ___bupropion, cariprazine, fluvoxamine, (ondansetron if needed)___ DO NOT STOP ANY OF YOUR OTHER PRESCRIPTION MEDICATIONS PRIOR TO SURGERY EXCEPT THE FOLLOWING Hold all vitamins and supplements for 3 days per anesthesiologist. Medications to discontinue per physician __n/a____ Date to take last dose of vitamins__05/04/25___ Please no make-up, nail faroese, hairspray, perfume, deodorant, or body powder the day of surgery.? No jewelry (including any body piercings) or valuables the day of surgery, leave them at home.? Please take a shower or bath the night before, or the morning of, surgery with an antibacterial soap.? Wear comfortable, loose fitting clothing.? . - Jewelry must be removed prior to entering the operating room.? Rings and piercings that are not removed may be cut off. - The hospital will not accept responsibility for valuables.? - Please leave all valuables, including medications, at home the day of surgery. If you are going home after surgery, a licensed goat driver must drive you home.? - NO public transportation without another adult if you receive anesthesia. - We recommend that an adult stay with you for 24 hours following discharge. - We also recommend that you do not drive, make important decision, drink alcoholic beverages, or take any drugs that were not prescribed by your health care provider for at least 24 hours after your discharge time. Follow any additional instructions given to you from your surgeon. Telephone instructions given to __Natacha___and asked if any additional questions and then verbalized understanding. Patient advised to call surgeon office or pre surgery nurse liaison [phone] if any additional questions.
[2025-05-01 09:43] VITALS: BMI 29.9
[2025-05-08] VITALS (10 sets, daily range): BP systolic 100–129; BP diastolic 54–82; PULSE 74–90; RESP 12–21; TEMP 36.1–36.9; O2SAT 96–100; BMI 29.2
--- OUTSIDE RECORDS SUMMARY | 2025-05-08 02:09 | XMS_ITS | Clinical Summary ---
Author Organization [facility] Address [address] [place] [address] Care Team Providers Care Senior Network Systems Engineer Name Role Phone Ronel High NP Primary Care Provider [phone] Allergies No known active allergies Medications traZODone [...] topic Insurance [employer] Care Teams Senior Network Systems Engineer Relationship Specialty Start Date End Date Ronel High NP [address] [place] [address] PCP - General NURSE PRACTITIONER 07/08/21
--- OUTSIDE RECORDS SUMMARY | 2025-05-08 02:10 | XMS_ITS | Patient Health Record ---
Author Organization [facility] Address [address] [place] [address] Care Team Providers Care Family Physician Name Role Phone Tish Guzman Primary Care Provider Emily Hou Unavailable [phone] Jose Maria Huber Unavailable [phone] Allergies No Known Allergies Results Component Value Reference Range Notes T3 Uptake* Reviewed date:05/20/2024 11:20:54 AM Interpretation:Normal Performing Lab:[facility] [place], [address] [place] [address], Phone - [phone], Director - MDBendre Notes/Report: Test(s) 476699- Atopobium vaginae; 930002- BVAB 2; 392972- Megasphaera 1 was developed and its performance characteristics determined by [facility]. It has not been cleared or approved by the Food and Drug Administration. Test(s) 878403-Gqumnjw albicans, KAVITHA; 327587-Odvgdar glabrata, KAVITHA was developed and its performance characteristics determined by [facility]. It has not been cleared or approved by the Food and Drug Administration. T3 Uptake 25 24-39 % C-Reactive Protein, Quant Reviewed date:05/20/2024 11:20:54 AM Interpretation:Normal Performing Lab:[facility] [address] [place] [address], Phone - [phone], Director - MDBendre Notes/Report: Test(s) 017810- Atopobium vaginae; 118209- BVAB 2; 327127- Megasphaera 1 was developed and its performance characteristics determined by [facility]. It has not been cleared or approved by the Food and Drug Administration. Test(s) 136896-Lvcoqcr albicans, KAVITHA; 390294-Uyzgwye glabrata, KAVITHA was developed and its performance characteristics determined by [facility]. It has not been cleared or approved by the Food and Drug Administration. C-Reactive Protein, Quant 1 0-10 mg/L Urinalysis In-House, Routine Reviewed date:05/14/2024 02:43:30 PM Interpretation: Performing Lab: Notes/Report: Leukocytes trace Nitrite, Urine neg Urobilinogen,Semi-Qn 0.2 Protein neg pH 6.5 Occult Blood neg Specific Excello 1.025 Ketones neg Bilirubin neg Glucose neg NuSwab Vaginitis Plus (VG+) (496129) Reviewed date:05/20/2024 11:20:54 AM Interpretation:Abnormal Performing Lab:[facility] [place], [address] [place] [address], Phone - [phone], Director - MDAsh Notes/Report: Test(s) 311598- Atopobium vaginae; 304706- BVAB 2; 391132- Megasphaera 1 was developed and its performance characteristics determined by [facility]. It has not been cleared or approved by the Food and Drug Administration. Test(s) 751019-Mokdddq albicans, KAVITHA; 790130-Iaynxrq glabrata, KAVITHA was developed and its performance characteristics determined by [facility]. It has not been cleared or approved [...] Negative Negative Neisseria gonorrhoeae, KAVITHA Negative Negative Urine Culture, Routine* Reviewed date:05/20/2024 11:20:54 AM Interpretation:Normal Performing Lab:[facility], [address] [place] [address], Phone - [phone], Director - Anaya Notes/Report: Test(s) 254144- Atopobium vaginae; 004366- BVAB 2; 003752- Megasphaera 1 was developed and its performance characteristics determined by [facility]. It has not been cleared or approved by the Food and Drug Administration. Test(s) 105536-Cjaduic albicans, KAVITHA; 662039-Cysesfp glabrata, KAVITHA was developed and its performance characteristics determined by [facility]. It has not been cleared or approved by the Food and Drug Administration. Test(s) 473366- Atopobium vaginae; 425635- BVAB 2; 616134- Megasphaera 1 was developed and its performance characteristics determined by [facility]. It has not been cleared or approved by the Food and Drug Administration. Test(s) 244676-Wotrzno albicans, KAVITHA; 491900-Kgwmnrb glabrata, KAVITHA was developed and its performance characteristics determined by [facility]. It has not been cleared or approved by the Food and Drug Administration. Urine Culture, Routine Final report Result 1 Mixed urogenital hang 10,000-25,000 colony forming units per mL TSH Rfx on Abnormal to Free T4 Reviewed date:05/20/2024 11:20:55 AM Interpretation:Normal [facility]forming [facility], [address] [place] [address], Phone - [phone], Director - Anaya Notes/Report: Test(s) 795082- Atopobium vaginae; 996346- BVAB 2; 355750- Megasphaera 1 was developed and its performance characteristics determined by [facility]. It has not been cleared or approved by the Food and Drug Administration. Test(s) 011405-Nszgodl albicans, KAVITHA; 962172-Pbwrxoh glabrata, KAVITHA was developed and its performance characteristics determined by [facility]. It has not been cleared or approved by the Food and Drug Administration. 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 Stress is when someone feels tense, nervous, anxious, or can\t sleep at night because their mind is troubled Very much In the past year have you sp ent more than 2 nights in a row in a correction, half-way, senior living center, or juvenile correctional facility? No Are [...] W/U Status Risk Notes Problem Tobacco user (607623490) Nicotine dependence, unspecified, uncomplicated (F17.200) Active confirmed Problem Generalized anxiety disorder (32462274) Generalized anxiety disorder (F41.1) Active confirmed Problem Borderline personality disorder () Borderline personality disorder (F60.3) Active confirmed Problem Sleep disorder (20805061) Sleep disorder, unspecified (G47.9) Active confirmed Problem Mood disorder (94182717) Mood disorder (F39) Active confirmed r/o bipolar vs severe episode of MDD Problem Attention deficit hyperactivity disorder (500750747) ADHD (attention deficit hyperactivity disorder), combined type (F90.2) Active confirmed Problem Chronic pain (04124315) Chronic pain (G89.29) Active confirmed Problem Overweight (978604161) Over weight (E66.3) Active confirmed Problem Diabetes mellitus (19308401) Diabetes mellitus (E11.9) Active confirmed Problem Laboratory test result abnormal (844222262) Abnormal laboratory test result (R89.9) Active confirmed Problem Memory impairment (733704645) Memory impairment (R41.3) Active confirmed Problem Bipolar disorder (23065078) Bipolar depression (F31.9) Active confirmed Vital Signs Heart Rate 76 /min 02/18/2025 Temperature 98.7 degrees Fahrenheit 02/18/2025 Respiratory Rate 16 /min 02/18/2025 Blood pressure diastolic 70 mm Hg 02/18/2025 Oximetry 100 % 02/18/2025 Height 68 in 02/18/2025 Blood pressure systolic 126 mm Hg 02/18/2025 Weight 193.2 lbs 02/18/2025 BMI 29.37 kg/m2 02/18/2025 Encounters Encounter Location Date Provider Diagnosis [facility] [address] [place] [address] 03/24/2025 Emily Hou [facility] [place] [place] [address] 05/14/2024 Tish Short Symptoms of urinary tract infection R39.9 ; Abnormal laboratory test result R89.9 ; Chronic pain G89.29 ; Vaginal discharge N89.8 ; Abdominal pain, acute R10.9 ; Chest pain at rest R07.9 and Diabetes mellitus E11.9 [facility] [address] [place] [address] 05/21/2024 Emily Hou Borderline personality disorder F60.3 ; Bipolar depression F31.9 ; Generalized anxiety disorder F41.1 ; Sleep disorder, unspecified G47.9 ; Attention and concentration deficit R41.840 ; Memory impairment R41.3 and Nutritional counseling Z71.3 [facility] [address] [place] [address] 06/04/2024 Emily Hou Borderline personality disorder F60.3 ; Bipolar depression F31.9 ; Generalized anxiety disorder F41.1 ; Sleep disorder, unspecified G47.9 ; Attention and concentration deficit R41.840 ; Memory impairment R41.3 and Nutritional counseling Z71.3 [place] [address] [place] [address] 06/18/2024 Emily Hou Nutritional counseling Z71.3 ; Borderline personality disorder F60.3 ; Bipolar depression F31.9 ; Generalized anxiety disorder F41.1 ; Sleep disorder, unspecified G47.9 ; Attention and concentration deficit R41.840 and Memory impairment R41.3 [address] [place] [address] 08/06/2024 Emily Hou Nutritional counseling Z71.3 ; Borderline personality disorder F60.3 ; Bipolar depression F31.9 ; Generalized anxiety disorder F41.1 ; Sleep disorder, unspecified G47.9 ; Attention and concentration deficit R41.840 and Memory impairment R41.[address] [place] [address] 08/07/2024 Tish Guzman Nutritional counseling Z71.3 ; Shoulder pain, right M25.511 ; Nicotine dependence, unspecified, uncomplicated F17.200 and Chronic pain G89.29 [address] [place] [address] 08/20/2024 Emily Hou Nutritional counseling Z71.3 ; Borderline personality disorder F60.3 ; Bipolar depression F31.9 ; Generalized anxiety disorder F41.1 ; Sleep disorder, unspecified G47.9 ; Attention and concentration deficit R41.840 and Memory impairment R41.3 [address] [place] [address] 08/29/2024 Tish Short Shoulder pain, right M25.511 ; Follow-up exam Z09 and Chronic pain G89.29 [facility] [place] [address] 09/17/2024 Emily Hou Nutritional counseling Z71.3 ; Borderline personality disorder F60.3 ; Bipolar depression F31.9 ; Generalized anxiety disorder F41.1 ; Sleep disorder, unspecified G47.9 ; Attention and concentration deficit R41.840 and Memory impairment R41.3 [facility] [place] [address] 09/24/2024 Emily Hou Nutritional counseling Z71.3 ; Nicotine dependence, unspecified, uncomplicated F17.200 ; Borderline personality disorder F60.3 ; Bipolar depression F31.9 ; Generalized anxiety disorder F41.1 ; Sleep disorder, unspecified G47.9 ; Attention and concentration deficit R41.840 and Memory impairment R41.3 [facility] [place] [address] 10/08/2024 Emily Hou Over weight E66.3 ; Nutritional counseling Z71.3 ; Nicotine dependence, unspecified, uncomplicated F17.200 ; Borderline personality disorder F60.3 ; Bipolar depression F31.9 ; Generalized anxiety disorder F41.1 ; Sleep disorder, unspecified G47.9 ; Attention and concentration deficit R41.840 and Memory impairment R41.3 [facility] [place] [address] 10/22/2024 Emily Hou Over weight E66.3 ; Nutritional counseling Z71.3 ; Nicotine dependence, unspecified, uncomplicated F17.200 ; Borderline personality disorder F60.3 ; Bipolar depression F31.9 ; Generalized anxiety disorder F41.1 ; Sleep disorder, unspecified G47.9 ; Attention and concentration deficit R41.840 and Memory impairment R41.3 [address] [place] [address] 11/05/2024 Emily Hou Over weight E66.3 ; Nutritional counseling Z71.3 ; Nicotine dependence, unspecified, uncomplicated F17.200 ; Borderline personality disorder F60.3 ; Bipolar depression F31.9 ; Generalized anxiety disorder F41.1 ; Sleep disorder, unspecified G47.9 ; Attention and concentration deficit R41.840 and Memory impairment R41.[address] [place] [address] 11/27/2024 Emily Ameya Over weight E66.3 ; Nutritional counseling Z71.3 ; Nicotine dependence, unspecified, uncomplicated F17.200 ; Borderline personality disorder F60.3 ; Bipolar depression F31.9 ; Generalized anxiety disorder F41.1 ; Sleep disorder, unspecified G47.9 ; Attention and concentration deficit R41.840 and Memory impairment R41.3 [address] [place] [address] 12/10/2024 Emily Ameya Over weight E66.3 ; Nutritional counseling Z71.3 ; Nicotine dependence, unspecified, uncomplicated F17.200 ; Borderline personality disorder F60.3 ; Bipolar depression F31.9 ; Generalized anxiety disorder F41.1 ; Sleep disorder, unspecified G47.9 ; Attention and concentration deficit R41.840 and Memory impairment R41.3 [facility] [place] [address] 01/14/2025 Emily Ameya Over weight E66.3 ; Nutritional counseling Z71.3 ; Nicotine dependence, unspecified, uncomplicated F17.200 ; Borderline personality disorder F60.3 ; Bipolar depression F31.9 ; Generalized anxiety disorder F41.1 ; Sleep disorder, unspecified G47.9 ; Attention and concentration deficit R41.840 and Memory impairment R41.3 [facility] [place] [address] 02/18/2025 Emily Ameya Over weight E66.3 ; Nutritional counseling Z71.3 ; Nicotine dependence, unspecified, uncomplicated F17.200 ; Borderline personality disorder F60.3 ; Bipolar depression F31.9 ; Generalized anxiety disorder F41.1 ; Sleep disorder, unspecified G47.9 ; Attention and concentration deficit R41.840 and Memory impairment R41.3 [facility] [place] [address] 03/18/2025 Emily Hou ADHD (attention deficit hyperactivity disorder), combined type F90.2 ; Over weight E66.3 ; Nutritional counseling Z71.3 ; Nicotine dependence, unspecified, uncomplicated F17.200 ; Borderline personality disorder F60.3 ; Bipolar depression F31.9 ; Generalized anxiety disorder F41.1 ; Sleep disorder, unspecified G47.9 and Memory impairment R41.[address] [address] 04/24/2025 Emily Hou ADHD (attention deficit hyperactivity disorder), combined type F90.2 ; Over weight E66.3 ; Nutritional counseling Z71.3 ; Nicotine dependence, unspecified, uncomplicated F17.200 ; Borderline personality disorder F60.3 ; Bipolar depression F31.9 ; Generalized anxiety disorder F41.1 ; Sleep disorder, unspecified G47.9 and Memory impairment R41.[address] [address] 05/09/2024 Tish Guzman [address] [address] 05/13/[address] [address] 05/15/2024 Tish Guzman [address] [address] 05/20/2024 Tish Guzman Vaginitis N76.[address] [place] [address] 05/23/2024 Tish Guzman [address] [address] 06/24/[address] [address] 07/30/[address] [address] 08/28/2024 Tish Guzman [address] [address] 09/10/2024 Jose Maria Huber [address] [place] [address] 11/21/2024 Emily Hou Bipolar depression F31.9 and Attention and concentration deficit R41.[address] [place] [address] 11/22/2024 Emilycele Hou [address] [address] 11/25/2024 Emily Hou [facility] [address] [place] [address] 01/14/2025 Emily Hou [facility] [address] [place] [address] 03/18/2025 Emilycele Hou [place] [place] [address] 03/28/2025 Emily Hou Assessments Encounter Date Diagnosis (ICD Code) Assessment Notes Treatment Notes Treatment Clinical Notes Section Notes 05/14/2024 Abnormal laboratory test result (ICD-10 - R89.9) 05/14/2024 Symptoms of urinary tract infection (ICD-10 - R39.9) 05/20/2024 Vaginitis (ICD-10 - N76.0) 05/21/2024 Borderline personality disorder (ICD-10 - F60.3) Strongly encouraged therapy/counseling. 06/04/2024 Borderline personality disorder (ICD-10 - F60.3) Strongly encouraged therapy/counseling. 05/21/2024 Bipolar depression (ICD-10 - F31.9) 06/04/2024 Bipolar depression (ICD-10 - F31.9) Small increase in bupropion as also on Strattera. Increased for depression, motivation, energy. Discussed r/b/se. 06/18/2024 Nutritional counseling (ICD-10 - Z71.3) 08/06/2024 Nutritional counseling (ICD-10 - Z71.3) 08/07/2024 Shoulder pain, right (ICD-10 - M25.511) 08/07/2024 Nutritional counseling (ICD-10 - Z71.3) 08/20/2024 Nutritional counseling (ICD-10 - Z71.3) 08/29/2024 Shoulder pain, right (ICD-10 - M25.511) 08/29/2024 Follow-up exam (ICD-10 - Z09) 09/17/2024 Nutritional counseling (ICD-10 - Z71.3) 09/24/2024 Nutritional counseling (ICD-10 - Z71.3) 10/08/2024 Over weight (ICD-10 - E66.3) 10/22/2024 Over weight (ICD-10 - E66.3) 11/05/2024 Over weight (ICD-10 - E66.3) 11/21/2024 Bipolar depression (ICD-10 - F31.9) 11/27/2024 Over weight (ICD-10 - E66.3) 12/10/2024 Over weight (ICD-10 - E66.3) 01/14/2025 Over weight (ICD-10 - E66.3) 02/18/2025 Over weight (ICD-10 - E66.3) 03/18/2025 ADHD (attention deficit hyperactivity disorder), combined type (ICD-10 - F90.2) Started for restlessness/hyperact ivity Goal to stop Zyprexa Zeyad, work on polypharm 04/24/2025 ADHD (attention deficit hyperactivity disorder), combined type (ICD-10 - F90.2) Guanfacine ER for restlessness/hyperact ivity, has been doing better with this she feels, continue at this time. Goal to stop Zyprexwayne Jeffers, work on polypharm 04/24/2025 Over weight (ICD-10 - E66.3) 03/18/2025 Over weight (ICD-10 - E66.3) 02/18/2025 Nutritional counseling (ICD-10 - Z71.3) 01/14/2025 Nutritional counseling (ICD-10 - Z71.3) 12/10/2024 Nutritional counseling (ICD-10 - Z71.3) 11/27/2024 Nutritional counseling (ICD-10 - Z71.3) 11/05/2024 Nutritional counseling (ICD-10 - Z71.3) 08/29/2024 Chronic pain (ICD-10 - G89.29) 11/21/2024 Attention and concentration deficit (ICD-10 - R41.840) 10/22/2024 Nutritional counseling (ICD-10 - Z71.3) 10/08/2024 Nutritional counseling (ICD-10 - Z71.3) 09/24/2024 Nicotine dependence, unspecified, uncomplicated (ICD-10 - F17.200) 09/17/2024 Borderline personality disorder (ICD-10 - F60.3) Strongly encouraged therapy/counseling. 08/20/2024 Borderline personality disorder (ICD-10 - F60.3) Strongly encouraged therapy/counseling. 08/07/2024 Nicotine dependence, unspecified, uncomplicated (ICD-10 - F17.200) 06/18/2024 Borderline personality disorder (ICD-10 - F60.3) Strongly encouraged therapy/counseling. 08/06/2024 Borderline personality disorder (ICD-10 - F60.3) [...] G89.29) 05/14/2024 Vaginal discharge (ICD-10 - N89.8) 05/21/2024 Sleep disorder, unspecified (ICD-10 - G47.9) 06/04/2024 Sleep disorder, unspecified (ICD-10 - G47.9) 08/07/2024 Chronic pain (ICD-10 - G89.29) 08/06/2024 Bipolar depression (ICD-10 - F31.9) [place] agreement to continue current regimen. 06/18/2024 Bipolar depression (ICD-10 - F31.9) [place] agreement to continue current regimen. 08/20/2024 Bipolar depression (ICD-10 - F31.9) [place] agreement to continue current regimen. 09/17/2024 Bipolar depression (ICD-10 - F31.9) [place] agreement to continue current regimen. 10/22/2024 Nicotine dependence, unspecified, uncomplicated (ICD-10 - F17.200) 10/08/2024 Nicotine dependence, unspecified, uncomplicated (ICD-10 - F17.200) 09/24/2024 Borderline personality disorder (ICD-10 - F60.3) Strongly encouraged therapy/counseling. 11/05/2024 Nicotine dependence, unspecified, uncomplicated (ICD-10 - F17.200) 11/27/2024 Nicotine dependence, unspecified, uncomplicated (ICD-10 - F17.200) 12/10/2024 Nicotine dependence, unspecified, uncomplicated (ICD-10 - F17.200) 01/14/2025 Nicotine dependence, unspecified, uncomplicated (ICD-10 - F17.200) 02/18/2025 Nicotine dependence, unspecified, uncomplicated (ICD-10 - F17.200) 03/18/2025 Nutritional counseling (ICD-10 - Z71.3) 04/24/2025 Nutritional counseling (ICD-10 - Z71.3) 04/24/2025 Nicotine dependence, unspecified, uncomplicated (ICD-10 - [...] lamotrigine to further target depressive symptoms. 10/22/2024 Borderline personality disorder (ICD-10 - F60.3) Strongly encouraged therapy/counseling. Continue current regimen with addition of lamotrigine to further target depressive symptoms. 11/05/2024 Borderline personality disorder (ICD-10 - F60.3) Strongly encouraged therapy/counseling. Continue current regimen with addition of lamotrigine to further target depressive symptoms. 09/24/2024 Bipolar depression (ICD-10 - F31.9) [place] agreement to continue current regimen. 10/08/2024 Borderline personality disorder (ICD-10 - F60.3) Strongly encouraged therapy/counseling. Continue current regimen. Noted anhedonia, may look to decrease Luvox at next appt. Client want to give current regimen more time, continue. 09/17/2024 Generalized anxiety disorder (ICD-10 - F41.1) [...] and concentration deficit (ICD-10 - R41.840) 06/18/2024 Generalized anxiety disorder (ICD-10 - F41.1) Take as prescribed. Reviewed purpose (mood stability), benefits, and risks - low blood pressure, metabolic syndrome with high cholesterol or high blood sugars, change in cardiac conduction, nausea, vomiting, temporary or permanent movement disorders, and akathisia. 05/21/2024 Attention and concentration deficit (ICD-10 - R41.840) 05/14/2024 Abdominal pain, acute (ICD-10 - R10.9) 05/14/2024 Chest pain at rest (ICD-10 - R07.9) 05/21/2024 Memory impairment (ICD-10 - R41.3) 06/04/2024 Memory impairment (ICD-10 - R41.3) 08/06/2024 Sleep disorder, unspecified (ICD-10 - G47.9) 06/18/2024 Sleep disorder, unspecified (ICD-10 - G47.9) 08/20/2024 Sleep disorder, unspecified (ICD-10 - G47.9) 09/24/2024 Generalized anxiety disorder (ICD-10 - F41.1) Take as prescribed. Reviewed purpose (mood stability), benefits, and risks - low blood pressure, metabolic syndrome with high cholesterol or high blood sugars, change in cardiac conduction, nausea, vomiting, temporary or permanent movement disorders, and akathisia. 09/17/2024 Sleep disorder, unspecified (ICD-10 - G47.9) 10/08/2024 Bipolar depression (ICD-10 - F31.9) [place] agreement to continue current regimen. 11/05/2024 Bipolar depression (ICD-10 - F31.9) Increase [...] mg daily and titrate up as tolerated. 10/22/2024 Bipolar depression (ICD-10 - F31.9) Begin [...] mg daily and titrate up as tolerated. 11/27/2024 Bipolar depression (ICD-10 - F31.9) lamotrigine with rash- stop may look to add other mood stabilizer if needed 12/10/2024 Bipolar depression (ICD-10 - F31.9) may look to add other mood stabilizer if needed lamotrigine with rash- stopped 01/14/2025 Bipolar depression (ICD-10 - F31.9) may look to add other mood stabilizer if needed lamotrigine with rash- stopped 02/18/2025 Bipolar depression (ICD-10 - F31.9) may look to add other mood stabilizer if needed lamotrigine with rash- stopped 03/18/2025 Bipolar depression (ICD-10 - F31.9) may look to add other mood stabilizer if needed lamotrigine with rash- stopped 04/24/2025 Borderline personality disorder (ICD-10 - F60.3) Strongly encouraged therapy/counseling. Continue current regimen with addition of lamotrigine to further target depressive symptoms. 04/24/2025 Bipolar depression (ICD-10 - F31.9) may look to add other mood stabilizer if needed lamotrigine with rash- stopped 03/18/2025 Generalized anxiety disorder (ICD-10 - F41.1) [...] 09/24/2024 Sleep disorder, unspecified (ICD-10 - G47.9) 09/17/2024 Attention and concentration deficit (ICD-10 - R41.840) Increase bupropion and decrease strattera for depression. Discussed r/b/se. 08/20/2024 Attention and concentration deficit (ICD-10 - R41.840) 06/18/2024 Attention and concentration deficit (ICD-10 - R41.840) 08/06/2024 Attention and concentration deficit (ICD-10 - R41.840) 06/04/2024 Nutritional counseling (ICD-10 - Z71.3) 05/21/2024 Nutritional counseling (ICD-10 - Z71.3) 05/14/2024 Diabetes mellitus (ICD-10 - E11.9) 08/06/2024 Memory impairment (ICD-10 - R41.3) 06/18/2024 Memory impairment (ICD-10 - R41.3) 08/20/2024 Memory impairment (ICD-10 - R41.3) 09/17/2024 Memory impairment (ICD-10 - R41.3) 09/24/2024 Attention and concentration deficit (ICD-10 - R41.840) Discussed r/b/se. 10/08/2024 Sleep disorder, unspecified (ICD-10 - G47.9) 10/22/2024 Sleep disorder, unspecified (ICD-10 - G47.9) 11/05/2024 Sleep disorder, unspecified (ICD-10 - G47.9) 11/27/2024 Sleep disorder, unspecified (ICD-10 - G47.9) 12/10/2024 Sleep disorder, unspecified (ICD-10 - G47.9) 01/14/2025 Sleep disorder, unspecified (ICD-10 - G47.9) 02/18/2025 [...] or permanent movement disorders, and akathisia. 04/24/2025 Sleep disorder, unspecified (ICD-10 - G47.9) [...] and monitoring symptoms. Client denies concerns today. 12/10/2024 Memory impairment (ICD-10 - R41.3) Working to get insurance situated, plan for referral to neuro again once able. Client v/u and agreement. Declines referral at this time. 01/14/2025 Memory impairment (ICD-10 - R41.3) monitor, continue f/u with PCP 02/18/2025 Memory impairment (ICD-10 - R41.3) monitor, continue f/u with PCP 04/24/2025 Memory impairment (ICD-10 - R41.3) monitor, continue f/u with PCP 05/21/2024 Other Reasons, potential benefits, potential risks, [...] May also contact the 24-hour crisis hotline ([facility]), refer to the closest emergency room or [...] May also contact the 24-hour crisis hotline ([facility]), refer to the closest emergency room or [...] May also contact the 24-hour crisis hotline ([facility]), refer to the closest emergency room or [...] May also contact the 24-hour crisis hotline ([facility]), refer to the closest emergency room or [...] self-administe r their own oral medications per [place] Protocol. 09/17/2024 Other Reasons, potential benefits, potential [...] May also contact the 24-hour crisis hotline ([facility]), refer to the closest emergency room or [...] May also contact the 24-hour crisis hotline ([facility]), refer to the closest emergency room or [...] May also contact the 24-hour crisis hotline ([facility]), refer to the closest emergency room or [...] May also contact the 24-hour crisis hotline ([facility]), refer to the closest emergency room or [...] May also contact the 24-hour crisis hotline ([facility]), refer to the closest emergency room or [...] May also contact the 24-hour crisis hotline ([facility]), refer to the closest emergency room or [...] May also contact the 24-hour crisis hotline ([facility]), refer to the closest emergency room or [...] May also contact the 24-hour crisis hotline ([facility]), refer to the closest emergency room or [...] May also contact the 24-hour crisis hotline ([facility]), refer to the closest emergency room or [...] May also contact the 24-hour crisis hotline ([facility]), refer to the closest emergency room or [...] May also contact the 24-hour crisis hotline ([facility]), refer to the closest emergency room or [...] Insured Coverage Start Date Coverage End Date [facility] [address] [place] [address] [id number] Natacha Romero Self - patient is the insured 4 5 [facility] Attn Claims Department [address] [place] [address] [phone] Natacha Romero Self - patient is the insured 5 [employer] [address] [place] [address] [id number] Natacha Romero Self - patient is the insured 5 [employer] [address] [place] [address] [id number] Natacha Romero Self - patient is the insured 2 4 [employer] [address] [place] [address] [id number] [place] Romero Self - patient is the insured 2 4 [facility] Attn Claims Department [address] [facility] [place] [address] [phone] [id number] Natacha Romero Self - patient is the insured 5 Medical (General) History Surgical History Surgery Date(Month/Year) tubal ligation 2011 tubes (ears) Hospitalization History Reason Date(Month/Year) CRU 03/2022
--- OUTSIDE RECORDS SUMMARY | 2025-05-08 02:10 | XMS_ITS | Data Portability ---
Author Organization [place] [facility] [employer], Main Office Address [address] [place] [address] Assessment No assessment recorded. Plan of Treatment Reminders Order Date Submit Date Provider Last Modified By Organization Details Last Modified Time Details Appointments None recorded. Lab None recorded. Referral endocrinolo gy referral 2022 023 [email or web address] Lisy Campuzano MD, [address],, [facility], [place], [address], 3 11:58:10 Procedures None recorded. Surgeries None recorded. Imaging None recorded. Medication Orders fenofibrate 160 mg tablet 2022 023 [facility]/Pharmacy #3259, [address] [place], [address], 3 11:34:43 atorvastati n 20 mg tablet 2022 023 [facility]/Pharmacy #3259, [address] [place], [address], 3 11:34:43 omega-3 acid ethyl esters 1 gram capsule 2022 023 [facility]/Pharmacy #3259, [address] [place], [address], 3 11:34:44 Farxiga 5 mg tablet 2022 023 [facility]/Pharmacy #3259, [address] [place], [address], 3 11:32:50 pioglitazon e 30 mg tablet 2022 023 [facility]/Pharmacy #0949, [address] [place], [address], 3 11:32:50 cetirizine 10 mg tablet 2022 023 [facility]/Pharmacy #3259, [address] [place], [address], 3 11:33:11 Patient TargetsNo targets recorded. Patient InstructionsNo instructions recorded. Reason for Referral Endocrinology Referral for T ype 2 diabetes mellitus without complication Referring Physician: Sumi Segura, Endocrinology, Encounter Date: 04/18/2023 Results Created Date Observation Date Name Description Value Unit Range Abnormal Flag Note LastModifiedBy Organization Detail LastModifiedTime 12/29/19 22 12/28/2021 COMPR EHENS [place] METAB OLIC PANEL sodium 139 mmol/ L 137-14 5 Not Available [facility] (Lab) [address] [place], [address], 12/28/2021 13:57:19 12/29/19 22 12/28/2021 COMPR EHENS [place] METAB OLIC PANEL potassium 4.2 mmol/ L 3.5-5. 1 Not Available [facility] (Lab) [address] [place], [address], 12/28/2021 13:57:19 12/29/19 22 12/28/2021 COMPR EHENS [place] METAB OLIC PANEL chloride 106 mmol/ L 98-107 Not Available [facility] (Lab) [address] [place], [address], 12/28/2021 13:57:19 12/29/19 22 12/28/2021 COMPR EHENS [place] METAB OLIC PANEL carbon dioxide 26 mmol/ L 22-30 Not Available [facility] (Lab) [address] [place], [address], 12/28/2021 13:57:19 12/29/19 22 12/28/2021 COMPR EHENS [place] METAB OLIC PANEL anion gap 11.2 mmol/ L 14-22 low Not Available [facility] (Lab) [address] [place], [address], 12/28/2021 13:57:19 12/29/19 22 12/28/2021 COMPR EHENS [place] METAB OLIC PANEL glucose 134 mg/dL 70-99 high Not Available [facility] (Lab) [address] [place], [address], 12/28/2021 13:57:19 12/29/19 22 12/28/2021 COMPR EHENS [place] METAB OLIC PANEL BUN 12 mg/dL 8-19 Not Available [facility] (Lab) [address] [place], [address], 12/28/2021 13:57:19 12/29/19 22 12/28/2021 COMPR EHENS [place] METAB OLIC PANEL creatinine 0.60 mg/dL 0.66-1 .25 low Not Available [facility] (Lab) [address] [place], [address], 12/28/2021 13:57:19 12/29/19 22 12/28/2021 COMPR EHENS [place] METAB OLIC PANEL GFR >60 Refer ence Range : [place] ge GFR Healt hy Adult : >60 mL/mi n/1.7 3 m2 Chron ic Kidne y Disea se: 15-60 mL/mi n/1.7 3 m2 Kidne y Failu re: <15/m L/min /1.73 m2 www.n iddk. nih.g ov The MDRD study equat ion has not been valid ated in child alejo <18 years of age; pregn ant women ; the elder ly >85 years of age; or in some racia l or ethni c subgr oups, such as Hispa nics. Outsi de the valid ated aramis eters , estim ated GFR is less accur ate, requi ring clini jesus judgm ent on a case- by-ca se basis . Clini jesus inter preta tion for other races and ages must be made by the clini rolanda. The MDRD study equat ion has not been valid ated for the evalu ation of serum creat inine relat ed to nutri lorie l statu s or medic ation usage . For perso ns <18 years of age, a pedia tric GFR calcu lator is avail able on the [facility] websi te: https ://ww w.kid bar.o rg/pr ofess ional s/kdo qi/gf r_cal culat or Not Available [facility] (Lab) [address] [place], [address], 12/28/2021 13:57:19 12/29/19 22 12/28/2021 COMPR EHENS [place] METAB OLIC PANEL alkaline phosphatase 79 U/L 38-126 Not Available [facility] (Lab) [address] [place], [address], 12/28/2021 13:57:19 12/29/19 22 12/28/2021 COMPR EHENS [place] METAB OLIC PANEL alanine aminotransfe rase 38 U/L 0-35 high Not Available [facility] (Lab) [address] [place], [address], 12/28/2021 13:57:19 12/29/19 22 12/28/2021 COMPR EHENS [place] METAB OLIC PANEL aspartate aminotransfe rase 39 U/L 15-37 high Not Available [facility] (Lab) [address] [place], [address], 12/28/2021 13:57:19 12/29/19 22 12/28/2021 COMPR EHENS [place] METAB OLIC PANEL bilirubin, total 0.40 mg/dL 0.20-1 .30 Not Available [facility] (Lab) [address] [place], [address], 12/28/2021 13:57:19 12/29/19 22 12/28/2021 COMPR EHENS [place] METAB OLIC PANEL calcium 9.2 mg/dL 8.4-10 .2 Not Available [facility] (Lab) [address] [place], [address], 12/28/2021 13:57:19 12/29/19 22 12/28/2021 COMPR EHENS [place] METAB OLIC PANEL total protein 7.0 g/dL 6.3-8. 2 Not Available [facility] (Lab) [address] [place], [address], 12/28/2021 13:57:19 12/29/19 22 12/28/2021 COMPR EHENS [place] METAB OLIC PANEL albumin 4.3 g/dL 3.4-5. 0 Not Available [facility] (Lab) [address] [place], [address], 12/28/2021 13:57:19 12/29/19 22 12/28/2021 COMPR EHENS [place] METAB OLIC PANEL globulin 2.7 g/dL 2.6-4. 2 Not Available [facility] (Lab) [address] [place], [address], 12/28/2021 13:57:19 12/29/19 22 12/28/2021 COMPR EHENS [place] METAB OLIC PANEL A/G ratio 1.6 ratio 1.0-2. 0 Not Available [facility] (Lab) [address] [place], [address], 12/28/2021 13:57:19 12/29/19 22 12/28/2021 HEMOG LOBIN A1C HA1C 5.7 % 4.0-6. 0 Diabe river Scree maci Crite anmol: <5.7% Consi stent with absen ce of diabe river 5.7-6 .4% Consi stent with incre ased risk for diabe river (pred iabet es) >OR=6 .5% Consi stent with diabe river REFER ENCE: Diabe river Care 2016, 39(Graves ppl.1 ):s13 -s22 Not Available [facility] (Lab) [address] [place], [address], 12/28/2021 15:21:37 12/29/19 22 12/28/2021 TSH thyroid-stim ulating hormone 1.630 uIU/m L 0.465- 4.680 Not Available [facility] (Lab) [address] [place], [address], 12/28/2021 14:31:37 12/29/19 22 12/28/2021 MICRO ALBUM N RNDM W/CRE AT RATIO ur creat 149.99 mg/dL REFER ENCE RANGE NOT ESTAB LISHE D FOR RANDO M URINE CREAT ININE Not Available [facility] (Lab) [address] [place], [address], 12/28/2021 14:19:03 12/29/19 22 12/28/2021 MICRO ALBUM N RNDM W/CRE AT RATIO microalbumin , urine 24.0 mg/L 0.0-16 .6 high Not Available [facility] (Lab) [address] [place], [address], 12/28/2021 14:19:03 12/29/19 22 12/28/2021 MICRO ALBUM N RNDM W/CRE AT RATIO microalbumin /creatinine ratio 16 mcg/m g 0-29 THE AMERI CAN DIAB[facility] RIVER ASSOC IATIO N DEFIN ES ABNOR MALIT IES IN ALBUM IN EXCRE TION FOLLO WS: CATEG ORY RESUL T (MCG/ MG CREAT ININE ) NIKA L <30 MICRO ALBUM INURI A 30-29 9 CLINI JESUS ALBUM INURI A > OR = 300 THE ADA RECOM MENDS THAT 2 OF 2 SPECI MENS COLLE CTED WITHI N A 3- TO 6-MON TH PERIO D BE ABNOR MAL BEFOR E CONSI DORA G A PATIE NT TO HAVE CROSS ED ONE OF THESE DIAGN OSTIC THRES HOLDS . REFER ENCE: DIABE RIVER CARE, VOL. 26: S94-S 96, CLARK 2002 Not Available [facility] (Lab) [address] [place], [address], 12/28/2021 14:19:03 12/29/19 22 12/28/2021 T4 FREE free T4 1.16 NG/dL 0.78-2 .19 Not Available [facility] (Lab) [address] [place], [address], 12/28/2021 14:18:34 12/29/19 22 12/28/2021 LIPID PANEL cholesterol 217 mg/dL 140-19 9 high NIH DAREK NSUS RECOM MENDA TION FOR MICHAEL STERO L: ADULT CHILD LOW RISK: <200 <170 BORDE RLINE : <200- 239 ----- HIGH RISK: >240 >200 Not Available [facility] (Lab) [address] [place], [address], 12/28/2021 13:57:23 12/29/19 22 12/28/2021 LIPID PANEL triglyceride s 244 mg/dL 0-150 high NIH DAREK NSUS REPOR T RECOM MENDA TION FOR TRIGL YCERI JANA: ADULT CHILD LOW RISK: <150 ----- BODER LINE: 150-1 99 ----- HIGH RISK: >200 ----- Not Available [facility] (Lab) [address] [place], [address], 12/28/2021 13:57:23 12/29/19 22 12/28/2021 LIPID PANEL HDL cholesterol 30 mg/dL 40- low Not Available [facility] (Lab) [address] [place], [address], 12/28/2021 13:57:23 12/29/19 22 12/28/2021 LIPID PANEL LDL cholesterol, calculated 138 mg/dL 0-130 high NIH DAREK NSUS REPOR T RECOM MENDA TIONS FOR LDL: ADULT CHILD LOW RISK <130 <110 (OPTI MAL LDL) <100 ----- BORDE RLINE : 130-1 59 ----- HIGH RISK: >160 >130 A TRIGL YCERI DE RESUL T >400 INVAL IDATE S THE CALCU LATIO N FOR LDL FRACT IONAT ION - THE LDL RESUL T WILL NOT BE REPOR AZUL. Not Available [facility] (Lab) [address] [place], [address], 12/28/2021 13:57:23 04/12/20 22 04/14/2022 ROLAND C ANTIB ODIES PROFI LE T-transgluta minase IgA <2 U/mL 0-3 Negat austin 0 - 3 Weak Posit austin 4 - 10 Posit austin >10 . Tissu e Trans gluta ernestina e (tTG) has been ident ified as the endom ysial antig en. Studi es have demon str- ated that endom ysial IgA antib odies have over 99% speci ficit y for glute n sensi tive enter opath y. Not Available [facility] (Lab) [address] [place], [address], 04/14/2022 16:12:21 04/12/20 22 04/14/2022 ROLAND C ANTIB ODIES PROFI LE T-transgluta minase IgG <2 U/mL 0-5 Negat austin 0 - 5 Weak Posit austin 6 - 9 Posit austin >9 Not Available [facility] (Lab) [address] [place], [address], 04/14/2022 16:12:21 04/12/20 22 04/14/2022 ROLAND C ANTIB ODIES PROFI LE deamidated gliadin abs, IgG 4 units 0-19 Negat austin 0 - 19 Weak Posit austin 20 - 30 Moder ate to Stron g Posit austin >30 Not Available [facility] (Lab) [address] [place], [address], 04/14/2022 16:12:21 04/12/20 22 04/14/2022 ROLAND C ANTIB ODIES PROFI LE endomysial antibody IgA negati ve negati ve Not Available [facility] (Lab) [address] [place], [address], 04/14/2022 16:12:21 04/12/20 22 04/14/2022 ROLAND C ANTIB ODIES PROFI LE immunoglobul in A, qn, serum 200 mg/dL 87-352 Perfo rmed at: - [facility] n [address], [place] [address] Lab Direc tor: Jose lan PhD, Phone : [phone] Not Available [facility] (Lab) [address] [place], [address], 04/14/2022 16:12:21 04/12/20 22 04/14/2022 ROLAND C ANTIB ODIES PROFI LE deamidated gliadin abs, IgA 8 units 0-19 Negat austin 0 - 19 Weak Posit austin 20 - 30 Moder ate to Stron g Posit austin >30 Not Available [facility] (Lab) [address] [place], [address], 04/14/2022 16:12:21 04/12/20 22 04/12/2022 HEMOG LOBIN A1C HA1C 5.5 % 4.0-6. 0 Diabe river Scree maci Crite anmol: <5.7% Consi stent with absen ce of diabe river 5.7-6 .4% Consi stent with incre ased risk for diabe river (pred iabet es) >OR=6 .5% Consi stent with diabe river REFER ENCE: Diabe river Care 2016, 39(Graves ppl.1 ):s13 -s22 Not Available [facility] (Lab) [address] [place], [address], 04/12/2022 20:56:44 10/04/04/12/2022 MICRO ALBUM N RNDM W/CRE AT RATIO ur creat 47.75 mg/dL REFER ENCE RANGE NOT ESTAB LISHE D FOR RANDO M URINE CREAT ININE Not Available [facility] (Lab) [address] [place], [address], 04/12/2022 19:43:38 04/12/20 22 04/12/2022 MICRO ALBUM N RNDM W/CRE AT RATIO microalbumin , urine <6.0 mg/L 0.0-16 .6 Not Available [facility] (Lab) [address] [place], [address], 04/12/2022 19:43:38 04/12/2004/12/2022 LIPID PANEL cholesterol 162 mg/dL 140-19 9 NIH DAREK NSUS RECOM MENDA TION FOR MICHAEL STERO L: ADULT CHILD LOW RISK: <200 <170 BORDE RLINE : <200- 239 ----- HIGH RISK: >240 >200 Not Available [facility] (Lab) [address] [place], [address], 04/12/2022 19:29:15 04/12/20 22 04/12/2022 LIPID PANEL triglyceride s 126 mg/dL 0-150 NIH DAREK NSUS REPOR T RECOM MENDA TION FOR TRIGL YCERI JANA: ADULT CHILD LOW RISK: <150 ----- BODER LINE: 150-1 99 ----- HIGH RISK: >200 ----- Not Available [facility] (Lab) [address] [place], [address], 04/12/2022 19:29:15 04/12/20 22 04/12/2022 LIPID PANEL HDL cholesterol 33 mg/dL 40- low Not Available [facility] (Lab) [address] [place], [address], 04/12/2022 19:29:15 04/12/20 22 04/12/2022 LIPID PANEL LDL cholesterol, calculated 104 mg/dL 0-130 NIH DAREK NSUS REPOR T RECOM MENDA TIONS FOR LDL: ADULT CHILD LOW RISK <130 <110 (OPTI MAL LDL) <100 ----- BORDE RLINE : 130-1 59 ----- HIGH RISK: >160 >130 A TRIGL YCERI DE RESUL T >400 INVAL IDATE S THE CALCU LATIO N FOR LDL FRACT IONAT ION - THE LDL RESUL T WILL NOT BE REPOR AZUL. Not Available [facility] (Lab) [address] [place], [address], 04/12/2022 19:29:15 04/12/2004/12/2022 COMPR EHENS [place] METAB OLIC PANEL GFR >60 Refer ence Range : [place] ge GFR Healt hy Adult : >60 mL/mi n/1.7 3 m2 Chron ic Kidne y Disea se: 15-60 mL/mi n/1.7 3 m2 Kidne y Failu re: <15/m L/min /1.73 m2 www.n iddk. nih.g ov The MDRD study equat ion has not been valid ated in child alejo <18 years of age; pregn ant women ; the elder ly >85 years of age; or in some racia l or ethni c subgr oups, such as Hisnd nics. Outsi de the valid ated aramis eters , estim ated GFR is less accur ate, requi ring clini jesus judgm ent on a case- by-ca se basis . Clini jesus inter preta tion for other races and ages must be made by the clini rolanda. The MDRD study equat ion has not been valid ated for the evalu ation of serum creat inine relat ed to nutri lorie l statu s or medic ation usage . For perso ns <18 years of age, a pedia tric GFR calcu lator is avail able on the F websi te: https ://clinton kinney.sania dinero.o rg/pr ofess ional s/kdo qi/gf r_cal culat or Not Available [facility] (Lab) [address] [place], [address], 04/12/2022 19:29:10 04/12/20 22 04/12/2022 COMPR EHENS [place] METAB OLIC PANEL alkaline phosphatase 76 U/L 38-126 Not Available [facility] (Lab) [address] [place], [address], 04/12/2022 19:29:10 04/12/20 22 04/12/2022 COMPR EHENS [place] METAB OLIC PANEL alanine aminotransfe rase 21 U/L 0-35 Not Available [facility] (Lab) [address] [place], [address], 04/12/2022 19:29:10 04/12/20 22 04/12/2022 COMPR EHENS [place] METAB OLIC PANEL aspartate aminotransfe rase 29 U/L 15-37 Not Available [facility] (Lab) [address] [place], [address], 04/12/2022 19:29:10 04/12/20 22 04/12/2022 COMPR EHENS [place] METAB OLIC PANEL bilirubin, total 0.80 mg/dL 0.20-1 .30 Not Available [facility] (Lab) [address] [place], [address], 04/12/2022 19:29:10 04/12/20 22 04/12/2022 COMPR EHENS [place] METAB OLIC PANEL calcium 10.2 mg/dL 8.4-10 .2 Not Available [facility] (Lab) [address] [place], [address], 04/12/2022 19:29:10 04/12/20 22 04/12/2022 COMPR EHENS [place] METAB OLIC PANEL total protein 8.1 g/dL 6.3-8. 2 Not Available [facility] (Lab) [address] [place], [address], 04/12/2022 19:29:10 04/12/20 22 04/12/2022 COMPR EHENS [place] METAB OLIC PANEL albumin 5.2 g/dL 3.4-5. 0 high Not Available [facility] (Lab) [address] [place], [address], 04/12/2022 19:29:10 04/12/20 22 04/12/2022 COMPR EHENS [place] METAB OLIC PANEL globulin 2.9 g/dL 2.6-4. 2 Not Available [facility] (Lab) [address] [place], [address], 04/12/2022 19:29:10 04/12/20 22 04/12/2022 COMPR EHENS [place] METAB OLIC PANEL A/G ratio 1.8 ratio 1.0-2. 0 Not Available [facility] (Lab) [address] [place], [address], 04/12/2022 19:29:10 04/12/20 22 04/12/2022 COMPR EHENS [place] METAB OLIC PANEL sodium 139 mmol/ L 137-14 5 Not Available [facility] (Lab) [address] [place], [address], 04/12/2022 19:29:10 04/12/20 22 04/12/2022 COMPR EHENS [place] METAB OLIC PANEL potassium 4.2 mmol/ L 3.5-5. 1 Not Available [facility] (Lab) [address] [place], [address], 04/12/2022 19:29:10 04/12/20 22 04/12/2022 COMPR EHENS [place] METAB OLIC PANEL chloride 101 mmol/ L 98-107 Not Available [facility] (Lab) [address] [place], [address], 04/12/2022 19:29:10 04/12/20 22 04/12/2022 COMPR EHENS [place] METAB OLIC PANEL carbon dioxide 25 mmol/ L 22-30 Not Available [facility] (Lab) [address] [place], [address], 04/12/2022 19:29:10 04/12/20 22 04/12/2022 COMPR EHENS [place] METAB OLIC PANEL anion gap 17.2 mmol/ L 14-22 Not Available [facility] (Lab) [address] [place], [address], 04/12/2022 19:29:10 04/12/20 22 04/12/2022 COMPR EHENS [place] METAB OLIC PANEL glucose 114 mg/dL 70-99 high Not Available [facility] (Lab) [address] [place], [address], 04/12/2022 19:29:10 04/12/20 22 04/12/2022 COMPR EHENS [place] METAB OLIC PANEL BUN 12 mg/dL 8-19 Not Available [facility] (Lab) [address] [place], [address], 04/12/2022 19:29:10 04/12/20 22 04/12/2022 COMPR EHENS [place] METAB OLIC PANEL creatinine 0.66 mg/dL 0.66-1 .25 Not Available [facility] (Lab) [address] [place], [address], 04/12/2022 19:29:10 04/13/20 22 04/20/2022 HLA B 27 DISEA SE ASSOC IATIO N hla-B27 negati ve HLA-B *27 Negat austin B27 allel e inter preta tion for all loci based on IMGT/ HLA datab ase versi on This test was devel oped and its perfo rmanc e anay cteri stics deter mined by [facility]. It has not been clear ed or appro guero by the Food and Drug Admin istra tion. HLA Lab CLIA ID Kenyae r [id number] . This test was perfo rmed using PCR (Poly meras e Chain React ion)/ SSOP (Sequ ence Speci fic Oligo nucle otide Probe s) techn ique. SBT (Sequ ence Based Typin g) and/o r SSP (Sequ ence Speci fic Prime rs) may be used as suppl ement al metho ds when neces rekha. Pleas e joselinea ct HLA Custo elizabeth Servi ce at [phone] if you have any quest ions. . Direc tor of HLA Labor atory Dr Emmett Richardson, PhD [facility]fo [facility] at: [facility] [place] [facility] [address] [place], [place] [address] Lab Direc tor: Emmett Richardson PhD, Phone : [phone] Not Available [facility] (Lab) [address] [place], [address], 04/20/2022 13:10:12 04/13/20 22 04/19/2022 LUISA/A NTINU CLEAR ANTIB ODIES ,IFA antinuclear antibodies, ifa positi ve abnormal Negat austin <1:80 Borde rline 1:80 Posit austin >1:80 Perfo rmed at: [facility] n [address], [place] [address] Lab Direc tor: Jose lan PhD, Phone : [phone] Not Available [facility] (Lab) [address] [place], [address], 04/19/2022 11:12:20 04/13/20 22 04/19/2022 LUISA/A NTINU CLEAR ANTIB ODIES ,IFA homogeneous pattern 1:160 high ICAP nomen clatu re: AC-1 Not Available [facility] (Lab) [address] [place], [address], 04/19/2022 11:12:20 04/13/20 22 04/19/2022 LUISA/A NTINU CLEAR ANTIB ODIES ,IFA note: commen t abnormal . For more infor farzaneh n about Hep-2 cell patte rns use ANApa ttern s.org , the offic ial akhili te for the Inter natio nal Conse nsus on Antin uclea r Antib john (LUISA) Patte rns (ICAP ). ----- ----- ----- ----- ----- ----- ----- ----- ----- ----- ----- ----- A posit austin LUISA resul t may occur in healt hy indiv idual s (low titer ) or be assoc iated with a varie ty of disea ses. See inter preta tion chart which is not all inclu sive: . Siobhan rn Antig en Detec azul Sugge sted Disea se Assoc iatio n ----- ----- - ----- ----- ----- - ----- ----- ----- ----- ----- ---- Homog eneou s DNA(d s,ss) , SLE - High titer s Nucle osome s, Histo beau Drug- induc ed SLE ----- ----- - ----- ----- ----- - ----- ----- ----- ----- ----- ---- Speck led Sm, MOLD FORMS BUILDER, SCL-7 0, SLE,M CTD,P SS (diff use form) , SS-A/ SS-B Sjogr ens ----- ----- - ----- ----- ----- - ----- ----- ----- ----- ----- ---- Nucle olar SCL-7 0, PM-1/ SCL High titer s Scler oderm a, PM/DM ----- ----- - ----- ----- ----- - ----- ----- ----- ----- ----- ---- Centr omere Centr omere PSS (limi azul form) w/Cre st syndr ome varia ble ----- ----- - ----- ----- ----- - ----- ----- ----- ----- ----- ---- Nucle ar Dot Sp100 ,p80- coili n Prima ry Bilia ry Cirrh osis ----- ----- - ----- ----- ----- - ----- ----- ----- ----- ----- ---- Nucle ar GP210 , Prima ry Bilia ry Cirrh osis Membr ane matthew A,B,C ----- ----- - ----- ----- ----- - ----- ----- ----- ----- ----- ---- Perfo rmed at: [facility] [place] [address] Lab Direc tor: Jose lan PhD, Phone : [phone] Not Available [facility] (Lab) [address] [place], [address], 04/19/2022 11:12:20 04/13/20 22 04/13/2022 RHEUM ATOID FACTO R rf <8.6 IU/mL 0.0-11 .9 Not Available [facility] (Lab) [address] [place], [address], 04/13/2022 19:09:08 04/13/20 22 04/13/2022 SEDIM ENTAT ION RATE erythrocyte sedimentatio n rate 13 mm/HR 0-20 Not Available [facility] (Lab) [address] [place], [address], 04/13/2022 18:57:03 04/13/20 22 04/19/2022 FECAL FAT, QUALI TATIV E fats, neutral normal Nika l (<60 Dropl ets/H PF) Not Available [facility] (Lab) [address] [place], [address], 04/19/2022 17:08:52 04/13/20 22 04/19/2022 FECAL FAT, QUALI TATIV E fats, total increa sed Nika l (<100 Dropl ets/H PF) Perfo rmed at: [facility] [place] [facility] [address], [facility] [place] [place] [facility] [address] Lab Direc tor: Jose lan PhD, Phone : [phone] Not Available [facility] (Lab) [address] [place], [address], 04/19/2022 17:08:52 04/13/20 22 04/19/2022 PANCR EATIC ELAST ASE, FECAL pancreatic elastase, fecal 388 ug_el ast./ g >200 Sever e Pancr eatic Insuf ficie ncy: <100 Moder ate Pancr eatic Insuf ficie ncy: 100 - 200 Nika l: >200 Perfo rmed at: [facility] [place] [address] [facility] , [place] [address] Lab Direc tor: Valarie alves MD, Phone : [phone] Not Available [facility] (Lab) [address] [place], [address], 04/19/2022 16:12:02 08/16/19 23 08/20/2022 MICRO ALBUM N RNDM W/CRE AT RATIO ur creat 107.26 mg/dL REFER ENCE RANGE NOT ESTAB LISHE D FOR RANDO M URINE CREAT ININE Not Available [facility] (Lab) [address] [place], [address], 08/20/2022 14:06:42 08/16/19 23 08/20/2022 MICRO ALBUM N RNDM W/CRE AT RATIO microalbumin , urine <6.0 mg/L 0.0-16 .6 Not Available [facility] (Lab) [address] [place], [address], 08/20/2022 14:06:42 08/16/19 23 08/16/2022 HEMOG LOBIN A1C HA1C 5.5 % 4.0-6. 0 Diabe river Bianca Larate anmol: <5.7% Consi stent with absen ce of diabe river 5.7-6 .4% Consi stent with incre ased risk for diabe river (pred iabet es) >OR=6 .5% Consi stent with diabe river REFER ENCE: Diabe river Care 2016, 39(Graves ppl.1 ):s13 -s22 Not Available [facility] (Lab) [address] [place], [address], 08/16/2022 22:00:48 08/16/19 23 08/16/2022 TSH thyroid-stim ulating hormone 1.170 uIU/m L 0.465- 4.680 Not Available [facility] (Lab) [address] [place], [address], 08/16/2022 20:54:07 08/16/19 23 08/16/2022 T4 FREE free T4 1.14 NG/dL 0.78-2 .19 Not Available [facility] (Lab) [address] [place], [address], 08/16/2022 20:53:53 08/16/19 23 08/16/2022 LIPID PANEL cholesterol 175 mg/dL 140-19 9 [facility] DAREK NSUS RECOM MENDA TION FOR MICHAEL STERO L: ADULT CHILD LOW RISK: <200 <170 BORDE RLINE : <200- 239 ----- HIGH RISK: >240 >200 Not Available [facility] (Lab) [address] [place], [address], 08/16/2022 20:35:15 08/16/19 23 08/16/2022 LIPID PANEL triglyceride s 115 mg/dL 0-150 [facility] DAREK NSUS REPOR T RECOM MENDA TION FOR TRIGL YCERI JANA: ADULT CHILD LOW RISK: <150 ----- BODER LINE: 150-1 99 ----- HIGH RISK: >200 ----- Not Available [facility] (Lab) [address] [place], [address], 08/16/2022 20:35:15 08/16/19 23 08/16/2022 LIPID PANEL HDL cholesterol 38 mg/dL 40- low Not Available [facility] (Lab) [address] [place], [address], 08/16/2022 20:35:15 08/16/19 23 08/16/2022 LIPID PANEL LDL cholesterol, calculated 114 mg/dL 0-130 [facility] DAREK NSUS REPOR T RECOM MENDA TIONS FOR LDL: ADULT CHILD LOW RISK <130 <110 (OPTI MAL LDL) <100 ----- BORDE RLINE : 130-1 59 ----- HIGH RISK: >160 >130 A TRIGL YCERI DE RESUL T >400 INVAL IDATE S THE CALCU LATIO N FOR LDL FRACT IONAT ION - THE LDL RESUL T WILL NOT BE REPOR AZUL. Not Available [facility] (Lab) [address] [place], [address], 08/16/2022 20:35:15 08/16/19 23 08/16/2022 COMPR EHENS [place] METAB OLIC PANEL sodium 142 mmol/ L 137-14 5 Not Available [facility] (Lab) [address] [place], [address], 08/16/2022 20:35:09 08/16/19 23 08/16/2022 COMPR EHENS [place] METAB OLIC PANEL potassium 4.1 mmol/ L 3.5-5. 1 Not Available [facility] (Lab) [address] [place], [address], 08/16/2022 20:35:09 08/16/19 23 08/16/2022 COMPR EHENS [place] METAB OLIC PANEL chloride 108 mmol/ L 98-107 high Not Available [facility] (Lab) [address] [place], [address], 08/16/2022 20:35:08/16/19 23 08/16/2022 COMPR EHENS [place] METAB OLIC PANEL carbon dioxide 23 mmol/ L 22-30 Not Available [facility] (Lab) [address] [place], [address], 08/16/2022 20:35:08/16/19 23 08/16/2022 COMPR EHENS [place] METAB OLIC PANEL anion gap 15.1 mmol/ L 14-22 Not Available [facility] [facility] (Lab) [address] [place], [address], 08/16/2022 20:35:09 08/16/19 23 08/16/2022 COMPR EHENS [place] METAB OLIC PANEL glucose 97 mg/dL 70-99 Not Available [facility] (Lab) [address] [place], [address], 08/16/2022 20:35:09 08/16/19 23 08/16/2022 COMPR EHENS [place] METAB OLIC PANEL BUN 16 mg/dL 8-19 Not Available [facility] (Lab) [address] [place], [address], 08/16/2022 20:35:08/16/19 23 08/16/2022 COMPR EHENS [place] METAB OLIC PANEL creatinine 0.71 mg/dL 0.66-1 .25 Not Available [facility] (Lab) [address] [place], [address], 08/16/2022 20:35:08/16/19 23 08/16/2022 COMPR EHENS [place] METAB OLIC PANEL GFR >60 Refer ence Range : [place] ge GFR Healt hy Adult : >60 mL/mi n/1.7 3 m2 Chron ic Kidne y Disea se: 15-60 mL/mi n/1.7 3 m2 Kidne y Failu re: <15/m L/min /1.73 m2 www.n iddk. nih.g ov The MDRD study equat ion has not been valid ated in child alejo <18 years of age; pregn ant women ; the elder ly >85 years of age; or in some racia l or ethni c subgr oups, such as Hispa nics. Outsi de the valid ated aramis eters , estim ated GFR is less accur ate, requi ring clini jesus judgm ent on a case- by-ca se basis . Clini jesus inter preta tion for other races and ages must be made by the clini rolanda. The MDRD study equat ion has not been valid ated for the evalu ation of serum creat inine relat ed to nutri lorie l statu s or medic ation usage . For perso ns <18 years of age, a pedia tric GFR calcu lator is avail able on the [facility] websi te: https ://clinton w.sania dinero.o rg/pr ofess ional s/kdo qi/gf r_cal culat or Not Available [facility] (Lab) [address] [place], [address], 08/16/2022 20:35:09 08/16/19 23 08/16/2022 COMPR EHENS [place] METAB OLIC PANEL alkaline phosphatase 74 U/L 38-126 Not Available [facility] (Lab) [address] [place], [address], 08/16/2022 20:35:09 08/16/19 23 08/16/2022 COMPR EHENS [place] METAB OLIC PANEL alanine aminotransfe rase 22 U/L 0-35 Not Available [facility] (Lab) [address] [place], [address], 08/16/2022 20:35:09 08/16/19 23 08/16/2022 COMPR EHENS [place] METAB OLIC PANEL aspartate aminotransfe rase 26 U/L 15-37 Not Available [facility] (Lab) [address] [place], [address], 08/16/2022 20:35:09 08/16/19 23 08/16/2022 COMPR EHENS [place] METAB OLIC PANEL bilirubin, total 0.60 mg/dL 0.20-1 .30 Not Available [facility] (Lab) [address] [place], [address], 08/16/2022 20:35:09 08/16/19 23 08/16/2022 COMPR EHENS [place] METAB OLIC PANEL calcium 9.7 mg/dL 8.4-10 .2 Not Available [facility] (Lab) [address] [place], [address], 08/16/2022 20:35:09 08/16/19 23 08/16/2022 COMPR EHENS [place] METAB OLIC PANEL total protein 7.9 g/dL 6.3-8. 2 Not Available [facility] (Lab) [address] [place], [address], 08/16/2022 20:35:09 08/16/19 23 08/16/2022 COMPR EHENS [place] METAB OLIC PANEL albumin 4.9 g/dL 3.4-5. 0 Not Available [facility] (Lab) [address] [place], [address], 08/16/2022 20:35:08/16/19 23 08/16/2022 COMPR EHENS [place] METAB OLIC PANEL globulin 3.0 g/dL 2.6-4. 2 Not Available [facility] (Lab) [address] [place], [address], 08/16/2022 20:35:08/16/19 23 08/16/2022 COMPR EHENS [place] METAB OLIC PANEL A/G ratio 1.6 ratio 1.0-2. 0 Not Available [facility] (Lab) [address] [place], [address], 08/16/2022 20:35:09 04/06/20 23 04/06/2023 COMPR EHENS [place] METAB OLIC PANEL sodium 138 mmol/ L 137-14 5 Not Available [facility] (Lab) [address] [place], [address], 04/06/2023 18:49:05 04/06/20 23 04/06/2023 COMPR EHENS [place] METAB OLIC PANEL potassium 4.2 mmol/ L 3.5-5. 1 Not Available [facility] (Lab) [address] [place], [address], 04/06/2023 18:49:05 04/06/2004/06/2023 COMPR EHENS [place] METAB OLIC PANEL chloride 100 mmol/ L 98-107 Not Available [facility] (Lab) [address] [place], [address], 04/06/2023 18:49:05 04/06/20 23 04/06/2023 COMPR EHENS [place] METAB OLIC PANEL carbon dioxide 28 mmol/ L 22-30 Not Available [facility] (Lab) [address] [place], [address], 04/06/2023 18:49:05 04/06/20 23 04/06/2023 COMPR EHENS [place] METAB OLIC PANEL anion gap 14.2 mmol/ L 14-22 Not Available [facility] (Lab) [address] [place], [address], 04/06/2023 18:49:05 04/06/20 23 04/06/2023 COMPR EHENS [place] METAB OLIC PANEL glucose 150 mg/dL 70-99 high Not Available [facility] (Lab) [address] [place], [address], 04/06/2023 18:49:05 04/06/20 23 04/06/2023 COMPR EHENS [place] METAB OLIC PANEL BUN 11 mg/dL 8-19 Not Available [facility] (Lab) [address] [place], [address], 04/06/2023 18:49:05 04/06/2004/06/2023 COMPR EHENS [place] METAB OLIC PANEL creatinine 0.80 mg/dL 0.66-1 .25 Not Available [facility] (Lab) [address] [place], [address], 04/06/2023 18:49:05 04/06/2004/06/2023 COMPR EHENS [place] METAB OLIC PANEL GFR >60 Refer ence Range : [place] ge GFR Healt hy Adult : >60 mL/mi n/1.7 3 m2 Chron ic Kidne y Disea se: 15-60 mL/mi n/1.7 3 m2 Kidne y Failu re: <15/m L/min /1.73 m2 www.n iddk. nih.g ov The MDRD study equat ion has not been valid ated in child alejo <18 years of age; pregn ant women ; the elder ly >85 years of age; or in some racia l or ethni c subgr oups, such as Hisnd nics. Outsi de the valid ated aramis eters , estim ated GFR is less accur ate, requi ring clini jesus judgm ent on a case- by-ca se basis . Clini jesus inter preta tion for other races and ages must be made by the clini rolanda. The MDRD study equat ion has not been valid ated for the evalu ation of serum creat inine relat ed to nutri lorie l statu s or medic ation usage . For perso ns <18 years of age, a pedia tric GFR calcu lator is avail able on the F websi te: https ://clinton kinney.sania dinero.o ashly/pr luanneess ional s/kdo qi/gf r_cal culat or Not Available [facility] (Lab) [address] [place], [address], 04/06/2023 18:49:05 04/06/2004/06/2023 COMPR EHENS [place] METAB OLIC PANEL alkaline phosphatase 86 U/L 38-126 Not Available [facility] (Lab) [address] [place], [address], 04/06/2023 18:49:05 04/06/2004/06/2023 COMPR EHENS [place] METAB OLIC PANEL alanine aminotransfe rase 32 U/L 0-35 Not Available [facility] (Lab) [address] [place], [address], 04/06/2023 18:49:05 04/06/20 23 04/06/2023 COMPR EHENS [place] METAB OLIC PANEL aspartate aminotransfe rase 31 U/L 15-37 Not Available [facility] (Lab) [address] [place], [address], 04/06/2023 18:49:05 04/06/2004/06/2023 COMPR EHENS [place] METAB OLIC PANEL bilirubin, total 0.30 mg/dL 0.20-1 .30 Not Available [facility] (Lab) [address] [place], [address], 04/06/2023 18:49:05 04/06/2004/06/2023 COMPR EHENS [place] METAB OLIC PANEL calcium 9.7 mg/dL 8.4-10 .2 Not Available [facility] (Lab) [address] [place], [address], 04/06/2023 18:49:05 04/06/20 23 04/06/2023 COMPR EHENS [place] METAB OLIC PANEL total protein 7.7 g/dL 6.3-8. 2 Not Available [facility] (Lab) [address] [place], [address], 04/06/2023 18:49:05 04/06/20 23 04/06/2023 COMPR EHENS [place] METAB OLIC PANEL albumin 4.7 g/dL 3.4-5. 0 Not Available [facility] (Lab) [address] [place], [address], 04/06/2023 18:49:05 04/06/2004/06/2023 COMPR EHENS [place] METAB OLIC PANEL globulin 3.0 g/dL 2.6-4. 2 Not Available [facility] (Lab) [address] [place], [address], 04/06/2023 18:49:05 04/06/2004/06/2023 COMPR EHENS [place] METAB OLIC PANEL A/G ratio 1.6 ratio 1.0-2. 0 Not Available [facility] (Lab) [address] [place], [address], 04/06/2023 18:49:05 04/06/2004/06/2023 LIPID PANEL cholesterol 193 mg/dL 140-19 9 NIH DAREK NSUS RECOM MENDA TION FOR MICHAEL STERO L: ADULT CHILD LOW RISK: <200 <170 BORDE RLINE : <200- 239 ----- HIGH RISK: >240 >200 Not Available [facility] (Lab) [address] [place], [address], 04/06/2023 18:49:09 04/06/2004/06/2023 LIPID PANEL triglyceride s 209 mg/dL 0-150 high NIH DAREK NSUS REPOR T RECOM MENDA TION FOR TRIGL YCERI JANA: ADULT CHILD LOW RISK: <150 ----- BODER LINE: 150-1 99 ----- HIGH RISK: >200 ----- Not Available [facility] (Lab) [address] [place], [address], 04/06/2023 18:49:09 04/06/2004/06/2023 LIPID PANEL HDL cholesterol 33 mg/dL 40- low Not Available [facility] (Lab) [address] [place], [address], 04/06/2023 18:49:09 04/06/2004/06/2023 LIPID PANEL LDL cholesterol, calculated 118 mg/dL 0-130 NIH DAREK NSUS REPOR T RECOM MENDA TIONS FOR LDL: ADULT CHILD LOW RISK <130 <110 (OPTI MAL LDL) <100 ----- BORDE RLINE : 130-1 59 ----- HIGH RISK: >160 >130 A TRIGL YCERI DE RESUL T >400 INVAL IDATE S THE CALCU LATIO N FOR LDL FRACT IONAT ION - THE LDL RESUL T WILL NOT BE REPOR AZUL. Not Available [facility] (Lab) [address] [place], [address], 04/06/2023 18:49:09 04/06/2004/06/2023 T4 FREE free T4 1.28 NG/dL 0.78-2 .19 Not Available [facility] (Lab) [address] [place], [address], 04/06/2023 19:06:25 04/06/2004/06/2023 TSH thyroid-stim ulating hormone 1.240 uIU/m L 0.465- 4.680 Not Available [facility] (Lab) [address] [place], [address], 04/06/2023 19:20:06 04/06/20 23 04/06/2023 MICRO ALBUM N RNDM W/CRE AT RATIO ur creat 123.44 mg/dL REFER ENCE RANGE NOT ESTAB LISHE D FOR RANDO M URINE CREAT ININE Not Available [facility] (Lab) [address] [place], [address], 04/06/2023 22:33:44 04/06/20 23 04/06/2023 MICRO ALBUM N RNDM W/CRE AT RATIO microalbumin , urine 18.3 mg/L 0.0-16 .6 high Not Available [facility] (Lab) [address] [place], [address], 04/06/2023 22:33:44 04/06/20 23 04/06/2023 MICRO ALBUM N RNDM W/CRE AT RATIO microalbumin /creatinine ratio 15 mcg/m g 0-29 THE AMERI CAN DIABE RIVER ASSOC IATIO N DEFIN ES ABNOR MALIT IES IN ALBUM IN EXCRE TION FOLLO WS: CATEG ORY RESUL T (MCG/ MG CREAT ININE ) NIKA L <30 MICRO ALBUM INURI A 30-29 9 CLINI JESUS ALBUM INURI A > OR = 300 THE ADA RECOM MENDS THAT 2 OF 2 SPECI MENS COLLE CTED WITHI N A 3- TO 6-MON TH PERIO D BE ABNOR MAL BEFOR E CONSI DORA G A PATIE NT TO HAVE CROSS ED ONE OF THESE DIAGN OSTIC THRES HOLDS . REFER ENCE: DIABE RIVER CARE, VOL. 26: S94-S , 2002 Not Available [facility] (Lab) [address] [place], [address], 04/06/2023 22:33:44 04/06/20 23 04/06/2023 HEMOG LOBIN A1C HA1C 6.2 % 4.0-6. 0 high Diabe river Scree maci Crite anmol: <5.7% Consi stent with absen ce of diabe river 5.7-6 .4% Consi stent with incre ased risk for diabe river (pred iabet es) >OR=6 .5% Consi stent with diabe river REFER ENCE: Diabe river Care 2016, 39(Graves ppl.1 ):s13 -s22 Not Available [facility] (Lab) [address] [place], [address], 04/06/2023 21:41:57 01/04/20 22 XR, ribs, bilat eral, w/ PA chest [facility] [address] [place] [address] Patien t Name: PAULA LONGO Access ion #: [id number] Sex: F : 1980 5 Locati on: RA2 Attend ing Physic martha: CHARLENE MERRILL Orderi ng Physic martha: KARSTEN BethanyCHARLENE Exam Date: 10:41 AM Exam Name: XR RIBS BILAT W/PA CHEST Admitt ing Diagno sis(es ): RADIOL OGY REPORT - FINAL EXAM: XR RIBS BILAT W/PA CHEST HISTOR Y: rib pain accide nt Novemb er 2020 histor y of prior rib fractu res. 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 COMPAR MORRIS: None Availa ble. TECHNI QUE: Fronta l view of the chest and multip le views of the bilate ral ribs were perfor med. FINDIN GS: No pneumo thorax , pulmon michael edema, or consol idativ e infilt rates. The heart is not enlarg ed. No eviden ce of rib or clavic ular fractu re. Page 1 of 2 [facility] Name: PAULA LONGO Access ion #: [id number] Sex: F : 1980 6 Exam Date: 10:41 AM Exam Name: XR RIBS BILAT W/PA CHEST Admitt ing Diagno sis(es ): IMPRES MILVIA: 1. Bilate ral no eviden ce of rib fractu re bilate rally. 2. Chest no acute intrat horaci c proces s identi fied. Create d and electr onical ly signed by: Conner choe MD Signed Date: 11:05 AM (CT) Dictat ed by: Conner choe MD DD: 11:05 AM (CT) DT: 11:05 AM (CT) Page 2 of 2 [id number] [facility] (Imaging) [address] [place], [address], 09/07/2022 04:40:12 01/04/20 22 01/03/2022 XR, chest , 2 view No observ ation record ed. [id number] [facility] [address] [place], [address], 09/07/2022 04:40:12 03/02/20 22 03/02/2022 MRI, lumba r spine , w/o contr ast No observ ation record ed. MIGRATION. [id number] [facility] [address] [place], [address], 09/07/2022 04:40:12 03/26/20 22 03/26/2022 XR, chest , 2 view No observ ation record ed. MIGRATION. [facility] [address], [place], [address], 09/07/2022 04:40:12 04/14/20 22 04/12/2022 MAMMO , scree maci, digit al, bilat eral No observ ation record ed. MIGRATION. [facility] [address] [place], [address], 09/07/2022 04:40:12 05/03/20 22 05/03/2022 XR, foot No observ ation record ed. [id number], [place], [address], 09/07/2022 04:40:12 Result Notes None recorded. Problems Name Problem SNOMED Code Status Onset Date Resolution Date Notes Provider Name and Address Organization Details Recorded Time Menopausal syndrome 256288528 Active Not Available [facility] 3 04:34:59 Non-cyclic al mastalgia 364378513 Active Not Available [facility] 3 04:34:59 Irregular periods 29164241 Active Not Available [facility] 3 04:35:00 Lumbar radiculopa thy 528529474 Active 2018 Not Available [facility] 3 04:34:59 Mixed anxiety and depressive disorder 964586158 Active 2018 Not Available [facility] 3 04:34:59 Pain of right hip joint 5612317566030 02 Active 2018 Not Available [facility] 3 04:34:59 Mixed hyperchole sterolemia and hypertrigl yceridemia 411267334 Active 2018 Not Available [facility] 3 04:34:59 Thyroid function tests abnormal 445776403 Active 2018 Not Available [facility] 3 04:34:59 Gastroesop hageal reflux disease 722005333 Active 2018 Not Available [facility] 3 04:34:59 Hyperinsul inism 94013155 Active 2018 Not Available [facility] 3 04:35:00 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 Not Available [facility] 3 04:34:59 Noncomplia nce with medication regimen 224434220 Active 2020 Not Available [facility] 3 04:34:59 Vitamin D deficiency 22439830 Active 2021 Not Available [facility] 3 04:34:59 Hyperlipid emia 01096081 Active 2021 Not Available [facility] 3 04:35:00 Essential hypertensi on 05186041 Active 2021 Not Available [facility] 3 04:35:00 Liver enzymes level above reference range 110366054 Active 2021 Not Available [facility] 3 04:35:00 Steatotic liver disease 364469719 Active 2021 Not Available [facility] 3 04:34:59 Mood disorder 65314595 Active 2021 Not Available [facility] 3 04:34:59 Lumbar spondylosi s 205935202 Active 2021 Not Available [facility] 3 04:34:59 Well controlled type 2 diabetes mellitus 495170495 Active 2022 Kayla Holt, CURBER null, [place] [facility] 3 08:30:02 Mixed hyperlipid emia 211567140 Active 2022 Kayla Holt, CURBER null, [facility] 3 08:31:40 Seasonal allergic rhinitis 900052949 Active 2022 Sumi Segura MD [address] [facility] [place] [address], [place], [address] , [facility] 3 11:32:55 Type 2 diabetes mellitus without complicati on 518207038 Active 2022 Sumi Segura MD [address] [facility], [facility] [address], [place], [address] , [facility] 3 11:40:40 Problem Notes None recorded. Procedures Surgical History Date Name Laterality Status Provider Name and Address Organization Details Recorded Time 0 Date of Last Pap Smear completed Not Available [facility] 09/07/2022 04:31:02 6 [employer] Surgery completed Not Available [facility] 09/08/19 04:31:04 3 [employer]IST Procedure completed Not Available [facility] 2022 04:31:04 ENT Surgery completed Not Available [facility] 09/07/2022 04:31:04 Imaging Results None recorded. Procedure Notes None recorded. Medical Equipment None Reported. Allergies No known drug allergies Medications Name Sig Start Date Stop Date Status Note LastModified by Organization Details LastModified Time Prescript ion - Prior Authoriza tion Request active Not Available Not Available Not Available cyclobenz aprine 10 mg tablet TAKE 1 TABLET BY ORAL ROUTE 3 TIMES EVERY DAY 01/03 completed Not Available Not Available Not Available amoxicill in 500 mg capsule active Not Available Not Available Not Available Anti-Diar rheal (loperami de) 2 mg tablet TAKE 2 TABS BY MOUTH AFTER 1ST LOOSE STOOL & 1 TAB AFTER EACH NEXT BOWEL MOVEMENT S *MAX 16MG/DAY active Not Available Not Available No t Available neomycin- polymyxin -hydrocor t 3.5 mg/mL-10, 000 unit/mL-1 % ear solution 06/15 completed Not Available Not Available Not Available clonidine HCl 0.1 mg tablet 06/17 completed Not Available Not Available Not Available venlafaxi ne ER 75 mg capsule,e xtended release 24 hr 09/13 completed Not Available Not Available Not Available propranol ol 80 mg tablet TAKE 1 AND 1/2 TABLETS BY MOUTH DAILY active Not Available Not Available No t Available atorvasta tin 20 mg tablet TAKE 1 TABLET BY MOUTH EVERYDAY AT BEDTIME 2022 active Not Available Not Available Not Avai lable venlafaxi ne 75 mg tablet active Not Available Not Available Not Available quetiapin e 300 mg tablet TAKE 1 TABLET BY MOUTH AT BEDTIME 06/15 completed Not Available Not Available Not Available propylthi ouracil 50 mg tablet 09/13 completed Not Available Not Available Not Available cetirizin e 10 mg tablet TAKE 1 TABLET BY MOUTH EVERY DAY 2022 active Not Available Not Available Not Avai lable alprazola m 1 mg tablet TAKE 1 TABLET BY MOUTH EVERY DAY 09/13 completed Not Available Not Available Not Available metoprolo l tartrate 100 mg tablet 09/13 completed Not Available Not Available Not Available tizanidin e 4 mg tablet TAKE 1 TABLET BY MOUTH EVERY 8 HOURS NEEDED FOR MUSCLE SPASM 05/20 completed Not Available Not Available Not Available hydrocodo ne 5 mg-acetam inophen 325 mg tablet Take 1 tablet twice a day by oral route as needed for 10 days. active Not Available Not Available No t Available ondansetr on HCl 8 mg tablet TAKE 1 TABLET BY MOUTH TWICE A DAY NEEDED active Not Available Not Available No t Available meloxicam 15 mg tablet TAKE 1 TABLET BY MOUTH EVERY DAY 04/13 completed Not Available Not Available Not Available ondansetr on HCl 4 mg tablet 09/13 completed Not Available Not Available Not Available lovastati n 40 mg tablet TAKE 1 TABLET BY ORAL ROUTE EVERY DAY AT BEDTIME 09/13 completed Not Available Not Available Not Available clonidine HCl 0.3 mg tablet TAKE 1 TABLET BY MOUTH EVERYDAY AT BEDTIME (5 26 20) active Not Available Not Available No t Available sertralin e 100 mg tablet TAKE 1 TABLET BY ORAL ROUTE EVERY DAY 09/13 completed Not Available Not Available Not Available quetiapin e 200 mg tablet TAKE 1 TABLET BY MOUTH AT BEDTIME active Not Available Not Available No t Available olanzapin e 5 mg tablet Take 1 po daily active Not Available Not Available No t Available olanzapin e 10 mg tablet TAKE 1 TABLET BY MOUTH EVERYDAY AT BEDTIME active Not Available Not Available No t Available fenofibra te micronize d 200 mg capsule TAKE ONE CAPSULE BY MOUTH EVERY DAY 09/13 completed Not Available Not Available Not Available hydrocort isone acetate 25 mg rectal supposito ry INSERT 1 SUPPOSIT ORY TWICE A DAY BY RECTAL ROUTE FOR 12 DAYS. 01/23 completed Not Available Not Available Not Available ketorolac 10 mg tablet 09/21 completed Not Available Not Available Not Available risperido ne 2 mg tablet TAKE 1 TABLET BY MOUTH EVERY DAY FOR 90 DAYS active Not Available Not Available No t Available meloxicam 7.5 mg tablet TAKE 1 TABLET BY ORAL ROUTE EVERY DAY active Not Available Not Available No t Available alprazola m 0.5 mg tablet Take 1 tablet twice a day by oral route. 2021 active Not Available Not Available Not Avai lable clonidine HCl 0.2 mg tablet TAKE 1 TABLET BY MOUTH EVERYDAY AT BEDTIME 09/23 completed Not Available Not Available Not Available methocarb aileen 750 mg tablet TAKE 1 TABLET BY MOUTH EVERY 8 HOURS NEEDED FOR MUSCLE SPASM active Not Available Not Available No t Available temazepam 15 mg capsule TAKE 1 CAPSULE BY MOUTH EVERYDAY AT BEDTIME active Not Available Not Available No t Available trazodone 100 mg tablet TAKE 1 TABLET BY MOUTH EVERYDAY AT BEDTIME active Not Available Not Available No t Available dicyclomi ne 20 mg tablet 09/21 completed Not Available Not Available Not Available OneTouch Ultra Test strips TEST BLOOD SUGARS DAILY IN THE MORNING 02/14 completed Not Available Not Available Not Available dexametha sone 1 mg tablet Take 1 tablet as needed by oral route at bedtime for 1 day. active take dexa tablet at 10 pm night before 8 am cortisol Not Available Not Available Not Available fluvoxami ne 100 mg tablet TAKE 1/2 TABLET BY MOUTH IN THE MORNING AND TAKE 1 TABLET AT BEDTIME active Not Available Not Available No t Available hydrocodo ne 7.5 mg-acetam inophen 325 mg tablet TAKE 1 TABLET TWICE A DAY NEEDED PAIN 09/13 completed Not Available Not Available Not Available simvastat in 20 mg tablet TAKE 1 TABLET BY MOUTH EVERYDAY AT BEDTIME active Not Available Not Available No t Available venlafaxi ne 37.5 mg tablet active Not Available Not Available No t Available trazodone 150 mg tablet TAKE 2 TABLETS BY MOUTH AT BEDTIME active Not Available Not Available No t Available hydrocodo ne 7.5 mg-acetam inophen 750 mg tablet TAKE 1 TABLET BY MOUTH 3 TIMES A DAY NEEDED FOR SEVERE PAIN, 7-10 ON THE PAIN SCALE active Not Available Not Available No t Available clotrimaz ole-betam ethasone 1 %-0.05 % topical cream APPLY TO AFFECTED AREA TWICE A DAY IN THE MORNING AND IN THE EVENING FOR 2 WEEKS active Not Available Not Available No t Available lisinopri l 10 mg tablet TAKE 1 TABLET BY MOUTH EVERY DAY active Not Available Not Available No t Available prednison e 50 mg tablet 09/21 completed Not Available Not Available Not Available promethaz ine 25 mg tablet active Not Available Not Available Not Available Qvar 40 mcg/actua tion Metered Aerosol oral inhaler INHALE 2 PUFFS BY MOUTH TWICE A DAY EVERY DAY 09/13 completed Not Available Not Available Not Available metoprolo l tartrate 50 mg tablet TAKE 1 TABLET BY MOUTH TWICE A DAY active Not Available Not Available No t Available indometha monty 50 mg capsule active Not Available Not Available Not Available lisinopri l 20 mg-hydroc hlorothia zide 25 mg tablet active Not Available Not Available No t Available zolpidem 5 mg tablet 09/13 completed Not Available Not Available Not Available metoprolo l succinate ER 25 mg tablet,ex tended release 24 hr TAKE 1 TABLET BY ORAL ROUTE EVERY DAY active Not Available Not Available No t Available nystatin 100,000 unit/gram topical powder APPLY TO AFFECTED AREA TWICE A DAY active Not Available Not Available No t Available lisinopri l 10 mg-hydroc hlorothia zide 12.5 mg tablet 09/13 completed Not Available Not Available Not Available cefuroxim e axetil 500 mg tablet active Not Available Not Available Not Available zolpidem 10 mg tablet active Not Available Not Available Not Available pioglitaz one 30 mg tablet TAKE 1 TABLET BY MOUTH EVERY DAY IN THE MORNING 2022 active Not Available Not Available Not Avai lable metformin ER 500 mg tablet,ex tended release 24 hr TAKE 1 TABLET BY MOUTH TWICE A DAY WITH MEALS 01/03 completed Not Available Not Available Not Available sertralin e 50 mg tablet TAKE 1 TABLET BY ORAL ROUTE EVERY DAY active Not Available Not Available No t Available risperido ne 1 mg tablet 04/13 completed Not Available Not Available Not Available medroxypr ogesteron e 150 mg/mL intramusc ular suspensio n INJECT 1 ML INTRAMUS CULARLY EVERY 3 MONTHS active Not Available Not Available No t Available olanzapin e 20 mg tablet TAKE 1 TABLET BY MOUTH EVERY DAY 09/23 completed changed to 10mg Not Available Not Available Not Available naproxen 500 mg tablet TAKE 1 TABLET BY MOUTH TWICE A DAY NEEDED FOR PAIN active Not Available Not Available No t Available nortripty line 50 mg capsule TAKE 1 CAPSULE BY ORAL ROUTE ONCE A DAY AT BEDTIME active Not Available Not Available No t Available diazepam 5 mg tablet TAKE 2 TABLETS (10 MG TOTAL) BY MOUTH ONCE FOR 1 DOSE. TAKE 20 MIN PRIOR TO MRI 01/03 completed Not Available Not Available Not Available amoxicill in 875 mg-potass ium clavulana te 125 mg tablet active Not Available Not Available Not Available Ventolin HFA 90 mcg/actua tion aerosol inhaler 09/21 completed Not Available Not Available Not Available olanzapin e 5 mg disintegr ating tablet DISSOLVE 0.5-1 TABLET ON THE TONGUE ONCE A DAY 90 DAY(S) active Not Available Not Available No t Available hydroxyzi ne pamoate 25 mg capsule active Not Available Not Available Not Available neomycin- polymyxin -hydrocor t 3.5 mg-10,000 unit/mL-1 % ear drops,angel p 09/13 completed Not Available Not Available Not Available Depo-Prov era 150 mg/mL intramusc ular syringe Inject 1 mL every 3 months by intramus cular route. 08/20 completed Not Available Not Available Not Available azithromy monty 500 mg tablet TAKE 1 TABLET BY MOUTH EVERY DAY FOR 7 DAYS active Not Available Not Available No t Available escitalop damián 10 mg tablet 09/23 completed Not Available Not Available Not Available escitalop damián 20 mg tablet TAKE 1 TABLET BY MOUTH EVERY DAY IN THE MORNING active Not Available Not Available No t Available Strattera 40 mg capsule TAKE 1 CAPSULE BY MOUTH EVERY DAY IN THE MORNING FOR 90 DAYS 04/18 completed Not Available Not Available Not Available Premarin 0.3 mg tablet 09/13 completed Not Available Not Available Not Available duloxetin e 30 mg capsule,d elayed release active Not Available Not Available Not Available omega-3 acid ethyl esters 1 gram capsule Take by oral route for 90 days. active Not Available Not Available No t Available fenofibra te 160 mg tablet TAKE 1 TABLET BY MOUTH EVERYDAY AT BEDTIME 2022 active Not Available Not Available Not Avai lable ramelteon 8 mg tablet Take 1 tablet every day by oral route at bedtime for 30 days. 07/05 completed Not Available Not Available Not Available Zoloft 2013 active Not Available Not Available Not Avai lable vitamin E 2018 active Not Available Not Available Not Avai lable Depo-Prov era 2012 active Not Available Not Available Not Avai lable Strattera 80 mg capsule TAKE 1 CAPSULE BY MOUTH EVERY DAY IN THE MORNING FOR 30 DAYS active Not Available Not Available No t Available quetiapin e 50 mg tablet TAKE 1 TABLET BY MOUTH EVERY NIGHT AT BEDTME active Not Available Not Available No t Available melatonin 5 mg tablet TAKE 1 TABLET BY MOUTH AT BEDTIME active Not Available Not Available No t Available cholecalc iferol (vitamin D3) 50 mcg (2,000 unit) capsule TAKE 2 CAPSULES EVERY DAY BY MOUTH IN THE MORNING FOR 30 DAYS. 04/18 completed Not Available Not Available Not Available cetirizin e 10 mg capsule one tablet daily x 90 days 2022 active Not Available Not Available Not Avai lable OneTouch Delica Lancets 33 gauge TEST SUGARS DAILY IN MORNING FASTING 02/14 completed Not Available Not Available Not Available omega3 1,000 mg-dha-ep a-other tk6o-homq oil 1,400 mg capsule,d elay rel Take 1 capsule every day by oral route with meals for 30 days. 11/17 completed Not Available Not Available Not Available Victoza 3-Ang 0.6 mg/0.1 mL (18 mg/3 mL) subcutane ous pen injector INJECT 1.2 MG SUBCUTAN EOUSLY ONCE DAILY 12/08 completed Not Available Not Available Not Available Farxiga 5 mg tablet TAKE 1 TABLET BY MOUTH EVERY DAY IN THE MORNING 2022 active Not Available Not Available Not Avai lable Vraylar 1.5 mg capsule Take 1 capsule every day by oral route for 30 days. active Not Available Not Available No t Available TechLITE Pen Needle 32 gauge x 5/32 USE DIRECTED . INJECT VICTOZA ONCE DAILY 02/14 completed Not Available Not Available Not Available Proctosol HC 2.5 % topical cream perineal applicato r APPLY RECTALLY TWICE DAILY FOR 12 DAYS DIRECTED active Not Available Not Available No t Available OneTouch Ultra2 Meter active Not Available Not Available Not Available FreeStyle Francheska 2 Sensor kit 02/14 completed Not Available Not Available Not Available Flublok Quad (PF) 180 mcg (45 mcg x 4)/0.5 mL IM syringe active Not Available Not Available Not Available Daily-Vit e (with folic acid) 400 mcg tablet 04/18 completed Not Available Not Available Not Available Vitals Date Recorded Body mass index (BMI) Body height Oxygen saturation Oxygen saturation in Arterial blood by Pulse oximetry Heart rate Body temperature Body weight Systolic And Diastolic Provider Name and Address Organization Details Last Updated DateTime 2 34.2 kg/m2 172.72 cm 93 % 93 % 100 /min 97.9 [degF] 968115. 28 g 132/80 mm[Hg] Not Available [facility] 3 04:33:35 Date Recorded Body mass index (BMI) Body height Oxygen saturation Oxygen saturation in Arterial blood by Pulse oximetry Heart rate Body temperature Body weight Systolic And Diastolic Provider Name and Address Organization Details Last Updated DateTime 2 33.9 kg/m2 172.72 cm 98 % 98 % 81 /min 98.1 [degF] 411792. 1 g 122/84 mm[Hg] Not Available [facility] 3 04:33:35 Date Recorded Body mass index (BMI) Body height Oxygen saturation Oxygen saturation in Arterial blood by Pulse oximetry Heart rate Body temperature Body weight Systolic And Diastolic Provider Name and Address Organization Details Last Updated DateTime 2 32.4 kg/m2 172.72 cm 96 % 96 % 102 /min 98.1 [degF] 16585.1 7 g 126/84 mm[Hg] Not Available [facility] 3 04:33:36 Date Recorded Body height Body mass index (BMI) Body weight Respiratory rate Body temperature Heart rate Systolic And Diastolic Provider Name and Address Organization Details Last Updated DateTime 3 172.72 cm 38.8 kg/m2 843360. 05 g 16 /min 97.7 [degF] 98 /min 130/86 mm[Hg] Cris Orta RN [place] - [facility] 3 11:17:10 Date Recorded Body mass index (BMI) Body height Oxygen saturation Oxygen saturation in Arterial blood by Pulse oximetry Heart rate Body temperature Body weight Systolic And Diastolic Provider Name and Address Organization Details Last Updated DateTime 2 33.9 kg/m2 172.72 cm 95 % 95 % 88 /min 97.3 [degF] 315934. 1 g 100/65 mm[Hg] Not Available [facility] 3 04:33:36 Social History Question Answer Notes LastModified by Friend Trustediz[employer] ion Details LastModified Time Tobacco Smoking Status Current Every Day Smoker quit 10/2020 Not Available [facility] 09/07/2022 04:19:27 What Is Your Level Of Caffeine Consumption? None [id number] Information not available 09/07/2022 In The 14 Days Before Symptom Onset, Have You Had Close Contact With A Laboratory-confir med COVID-19 While That Case Was Ill? No [id number] Information not available 09/07/2022 In The 14 Days Before Symptom Onset, Have You Had Close Contact With A Person Who Is Under Investigation For COVID-19 While That Person Was Ill? No [id number] Information not available 09/07/2022 What Type Of Diet Are You Following? REGULAR [id number] Information not available 09/07/2022 Which Illicit Or Recreational Drugs Have You Used? Marijuana [id number] Information not available 09/07/2022 What Is The Highest Grade Or Level Of School You Have Completed Or The Highest Degree You Have Received? [id number] [id number] Information not available 09/07/2022 What Is Your Relationship Status? Single [id number] Information not available 09/07/2022 At What Age Did You Start Smoking Tobacco? 16 [id number] Information not available 09/07/2022 How Much Tobacco Do You Smoke? 0.25 PPD [id number] Information not available 09/07/2022 Have You Recently Traveled Abroad? No [id number] Information not available 09/07/2022 Do You Have Any Dietary Restrictions? No [id number].[id number] Information not available 09/07/2022 Sex: Female Functional Status Question Answer Note LastModified by Organizat ion Details LastModified Time What is your level of alcohol consumption? None [id number] Information not available 09/07/2022 Do you or have you ever used e-cigarettes or vape? Never used electronic cigarettes [id number] Information not available 09/07/2022 What is your exercise level? None [id number] Information not available 09/07/2022 Mental Status None recorded. Family History Relationship Description Onset Age of this Age Resolved Age Notes LastModified by Organization Details LastModified Time Father Diabetes mellitus [id number] Not available 09/07/2022 04:31:08 Paternal Aunt Diabetes mellitus [id number] Not available 09/07/2022 04:31:08 Paternal Aunt Malignant neoplasm of breast [id number].[id number] Not available 09/07/2022 04:31:08 Maternal Grandmother Malignant neoplasm of breast [id number].080 [id number] Not available 09/07/2022 04:31:08 Maternal Aunt Malignant neoplasm of ovary [id number] Not available 09/07/2022 04:31:08 Medical History Condition Response OBESITY Y ANXIETY DISORDER Y DIABETES, TYPE Y DEPRESSION (INCLUDING POST ) Y INSOMNIA Y HAVE YOU BEEN HOSPITALIZED OR SEEN IN [facility] IN THE PAST YEAR ? 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 17 Obstetrics History GPAL:G 1 P 1 0 0 1 Type Value Full Term 1 Living 1 Total 1 Immunizations Vaccine Type Date Status Note Provider Nam e and Address Organization Details Recorded Time COVID-19, mRNA, LNP-S, PF, 30 mcg/0.3 mL dose 1 completed Not Available [facility] 09/07/2022 04:39:47 COVID-19, mRNA, LNP-S, PF, 100 mcg/0.5mL dose or 50 mcg/0.25mL dose 1 completed Not Available [facility] 09/07/2022 04:39:47 Influenza, split virus, quadrivalent, preservative 0 completed Not Available [facility] 09/07/2022 04:39:48 Past Encounters Encounter ID Performer Location Encounter Start Date Encounter Closed Date Diagnosis/Indication Diagnosis SNOMED-CT Code Diagnosis ICD10 Code Diagnosis IMO Codes Diagnosis Note [id number] [facility] DEFAULT_1 _1 , 11/17/2020 00:00:00 11/17/2020 17:22:41 [id number] [facility] [place] [address] [place] [address] 12/08/2020 00:00:00 12/08/2020 14:26:18 [id number] [address] [facility] [place] [address] [place] [address] 12/28/2020 00:00:00 12/28/2020 13:28:24 [id number] Sandoval Redding MD [facility] [place] [address] [place] [address] 03/16/2021 00:00:00 03/16/2021 14:39:05 [id number] Sumi Segura MD [facility] [place] [address] [place] [address] 04/02/2021 00:00:00 04/02/2021 21:12:35 [id number] [address] [facility] [place] [address] [place] [address] 06/17/2021 00:00:00 06/21/2021 08:25:26 [id number] [address] [facility] [place] [address] [place] [address] 07/05/2021 00:00:00 07/05/2021 15:30:47 [id number] [facility] [place] [address] [place] [address] 2021 00:00:00 2021 14:44:57 [id number] Sumi Segura MD S_[facility] [place] [address] [place] [address] 09/06/2021 00:00:00 09/06/2021 20:46:16 [id number] [facility] [place] [address] [place] [address] 09/07/2021 00:00:00 09/07/2021 14:10:54 [id number] Sandoval Redding MD S_[facility] [address] [place] [address] 01/03/2022 00:00:00 01/03/2022 11:20:09 [id number] Sumi Segura MD S_[facility] [place] [address] [place] [address] 01/07/2022 00:00:00 01/07/2022 16:09:42 [id number] [facility] [place] [address] [place] [address] 02/14/2022 00:00:00 02/14/2022 16:24:47 [id number] [facility] [place] [address] [place] [address] 04/13/2022 00:00:00 04/13/2022 15:28:15 [id number] Sumi Segura MD S_[facility] [place] [address] [place] [address] 05/20/2022 00:00:00 05/20/2022 13:47:45 [id number] [facility] _[facility]_M IGRATION_ DEFAULT_1 _1 , 11/18/2020 00:00:00 11/18/2020 11:41:34 [id number] [facility] _[facility]_M IGRATION_ DEFAULT_1 _1 , 02/17/2021 00:00:00 02/17/2021 12:45:01 [id number] [facility] _[facility]_M IGRATION_ DEFAULT_1 _1 , 05/19/2021 00:00:00 05/19/2021 11:43:[id number] [facility] [place] [address] [place] [address] 04/18/2023 11:04:03 04/18/2023 11:58:10 Type 2 diabetes mellitus without complication [id number] E11.9 A1C of 6.2% - weight gain of 30 pounds since last year- reluctant to do injections at this time. Continue on farxiga and restart on pioglitazo ne as patient has tolerated therapy well in the past. 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 Recommende d up to 150 minutes of moderate level activity/e xercise weekly. Refer to endocrinol ogy per patient request. Seasonal a llergic rhinitis [id number] J30.2 Continue on cetirizine as patient has seasonal allergies. Mixed hyperlipidemia 267 110567 E78.2 Continue on statin, fish oil and fibrate as she has strong family hx of heart disease. Spent up to 25 minutes preparing to see the patient (eg, review of tests), obtaining and/or reviewing separately obtained history, performing a medically appropriat e examinatio n and evaluation , counseling and educating the patient, ordering medication s, tests, along with documentin g clinical informatio n in the electronic health record, independen tly interpreti ng results and communicat ing results to the patient. Patient can be followed by PCP - she/he is aware of my resignatio n and last day of April 21. If needed his/her PCP can refer patient to another endocrinol ogist in the area. All questions /concerns answered and refills necessary at visit today. Health Concerns Section Related Observation LastModified by Organization Detai ls LastModified Time None Recorded Concern Status LastModified by Organization Details LastModified Time None Recorded Advance Directives Directive None Recorded Payers Insurance Date Sequence Insurance Name Policy Number Policy Palm Covered Member ID Palm Member ID Guarantor Name 04/15/2023 1 [facility] (MEDICAID HMO) [id number] Natacha Longo [id number] Natacha Longo 04/18/2023 [employer] [id number] Natacha Nick Natacha Nick Notes Date Note Type Note Provider Name and Address Organization Details Recorded Time 04/18/2023 text/html ROS as noted in the HPI 42 yo female comes in management of well controlled type 2 DM (A1C of 6.2%) and mixed dyslipidemia. last seen in May at that time we continued actos and farxiga as she cannot tolerate metformin. She has put on 42 pounds since last year. She was taking care of her grandmother and was really stressed out with her care. She ate whatever she could / sugars and not really caring for herself. we continued fish oil and statin therapy. She is only taking farxiga 10 mg daily and not actos. Sugars are running over 90 mg/dL consistently labs from 04/06/23:microalbum in 15 ug/mga1c 6.2%TSH of 1.24 uIUm/lFT4 of 1.28 ng/dL193/209/33/11 8glucose 150 mg/dLCr normalLFT normal Sumi Segura MD [address], [place], [address], [place] - [facility] [employer] 04/18/2023 11:40:57 OBGyn Episode No OBEpisode recorded.
--- OUTSIDE RECORDS SUMMARY | 2025-05-08 02:10 | XMS_ITS | Clinical Summary ---
Author Organization [facility] Address [address] [place] [address] Care Team Providers Care Traffic Maintenance Officer Name Role Phone Albert Kwok MD Primary Care Provider [phone] Source Comments [facility] Affiliates and Associated Physician Practices is amultiple site organization consisting of ambulatory clinics and hospital sitesin [place], [place], [place]. This disclosure is being madepursuant to the Care Everywhere program and may not contain all information available regarding this patient. Last updated 18.[facility] Allergies Active Allergy Reactions Criticality Noted Date Comments Latex Rash,Itching Medium 03/26/2025 Skin Adhesives Rash,Itching Medium 03/26/2025 Medications * Be aware that medications may not be up to date on this document. Alwaysverify current medications with the patient. Brooks-3 Fatty Acids (FISH OIL) 1200 MG 2 [...] Type Department Care Team Description 04/29/2025 Telephone [facility] - ENT [address] [place] [address] Ayad Thao MD Question 03/26/2025 10:15 AM CDT Office Visit [facility] - [facility]NT [address] [place] [address] Ayad Thao MD Venous malformation (HCC) (Primary Dx); Lesion of soft palate 03/26/2025 Travel 02/27/2025 9:24 AM CDT - 02/27/2025 11:59 PM CDT Hospital Encounter [facility] - Outside Imaging Discharge Disposition: Home or Self Care 02/27/2025 9:22 AM CDT - 02/27/2025 9:23 AM CDT Hospital Encounter [facility] - Outside Imaging Discharge Disposition: [...] 36.8 C (98.2 F) 06/10/2022 10:33 AM CERTIFIED WELDER Respiratory Rate 16 06/10/2022 10:33 AM CERTIFIED WELDER Oxygen Saturation 100% 10/07/2021 1:20 PM CDT Inhaled Oxygen Concentration - - Weight 88 kg (194 lb) 03/26/2025 9:52 AM CDT Height 170.2 cm (5' 7) 03/26/2025 9:52 AM CDT Body Mass Index 30.38 03/26/2025 9:52 AM CDT Plan of Treatment Upcoming Encounters Date Type Department Care Team (Late st Contact Info) Description 08/01/2025 9:30 AM CERTIFIED WELDER Appointment [facility] [address] [place] [address] Ayad Thao MD [address] [place] [address] [address] [place] [address] 08/01/2025 10:45 AM CERTIFIED WELDER Office Visit [facility] - ENT [address] [place] [address] Ayad Thao MD [address] [place] [address] [address] [place] [address] Health Maintenance Due Date Last Done Comments [...] Procedure Name Priority Date/Time Associated Diagnosis Comments CO LARYNGOSCOPY,FLEX FIBER,DIAGNOSTIC Routine 03/26/2025 12:42 PM CDT Lesion of soft palate MRI BRAIN OUTSIDE Routine 02/05/2025 9:2 6 AM CDT COMPREHENSIVE METABOLIC PANEL Routine 10/07/2021 4:12 PM CDT Elevated transaminase level from Last 3 Months or Most Recently Relevant to Health Maintenance Results * CO LARYNGOSCOPY,FLEX FIBER,DIAGNOSTIC (03/26/2025 12:42 PM CDT) Narrative Pau Garduno MD - 03/26/2025 12:42 PM CDT Pau Garduno MD 03/26/2025 1:54 PM Procedure Note Endoscopy Type: Laryngoscopy without stroboscopy [id number] Endoscope: Flexible 4mm Scope Anesthesia: Lidocaine 2% [...] Brain Outside (02/05/2025 9:26 AM CDT) Narrative [facility] - 02/27/2025 9:26 AM CDT This is a study from an outside facility that has been uploaded into PACS. us Provider [facility] IMAGING Final Result [facility] * (ABNORMAL) COMPREHENSIVE METABOLIC PANEL (10/07/2021 4:12 PM CDT) BUN 13 7 - 26 mg/dL 10/07/2021 5:05 PM [facility] Creatinine 0.71 0.56 - 0.96 mg/dL 10/07/2021 5:05 PM [facility] Sodium 143 136 - 145 mmol/L 10/07/2021 5:05 PM [facility] Potassium 4.3 3.5 - 4.5 mmol/L 10/07/2021 5:05 PM [facility] Chloride 103 98 - 107 mmol/L 10/07/2021 5:05 PM [facility] CO2 26 22 - 29 mmol/L 10/07/2021 5:05 PM [facility] Glucose 89 70 - 115 mg/dL 10/07/2021 5:05 PM [facility] Calcium 10.9(H) 8.4 - 10.2 mg/dL 10/07/2021 5:05 PM [facility] Protein Total 8.9(H) 6.0 - 8.3 g/dL 10/07/2021 5:05 PM [facility] Albumin 4.8 3.4 - 5.0 g/dL 10/07/2021 5:05 PM [facility] Bilirubin Total 0.5 0.2 - 1.2 mg/dL 10/07/2021 5:05 PM [facility] Alkaline Phosphatase 77 40 - 150 U/L 10/07/2021 5:05 PM [facility] ALT 84(H) 5 - 55 U/L 10/07/2021 5:05 PM [facility] AST 95(H) 5 - 34 U/L 10/07/2021 5:05 PM [facility] Anion Gap 18 8 - 18 10/07/2021 5:05 PM [facility] BUN/Creatinine Ratio 18 7 - 23 10/07/2021 5:05 PM CDT [facility] Osmolality Calculated 296 270 - 300 mOsm/kg 10/07/2021 5:05 PM T [facility] Albumin/Globulin Ratio 1.2 1.1 - 2.3 10/07/2021 5:05 PM CDT [facility] eGFR by CKD-EPI >90 >=90 mL/min/1.7 3 m2 10/07/2021 5:05 PM T [facility] Blood BLOOD SPECIMEN / Unknown Lab Venipuncture / Unknown 10/07/2021 4:12 PM CDT 10/07/2021 4:38 PM CDT [facility] - CHEMISTRY ORDERABLES Final Result [facility] [address] [place] [address], [facility] [phone] from Last 3 Months or Most Recently Relevant to Health Maintenance Insurance [facility] Care Teams Traffic Maintenance Officer Relationship Specialty Start Date End Date Albert Kwok MD [address] [place] [address] PCP - General Family Medicine 02/21/25
--- OUTSIDE RECORDS SUMMARY | 2025-05-08 02:11 | XMS_ITS | Clinical Summary ---
Author Organization [facility] Address [address] [place] [address] Care Team Providers Care Orthophotography Technician Name Role Phone Bhanu Highie KAROL Primary Care Provider [phone] Allergies No known active allergies Medications cyclobenzaprine [...] on file Legal Sex Female 8:31 PM THREAD GRINDER Gender Identity Not on file Sexual Orientation Not on file Last Filed Vital Signs Vital Sign Reading Time Taken Comments Blood Pressure 165/97 06/07/2021 12:24 PM THREAD GRINDER Pulse 76 06/07/2021 12:24 PM THREAD GRINDER Temperature 36.8 C (98.3 F) 06/07/2021 10:28 AM THREAD GRINDER Respiratory Rate 18 06/07/2021 12:24 PM THREAD GRINDER Oxygen Saturation 100% 06/07/2021 12:24 PM THREAD GRINDER Inhaled Oxygen Concentration - - Weight 113.4 kg (250 lb) 06/07/2021 10:28 AM THREAD GRINDER Height 172.7 cm (5' 8) 06/07/2021 10:28 AM THREAD GRINDER Body Mass Index 38.01 06/07/2021 10:28 AM THREAD GRINDER Plan of Treatment Not on file Insurance [facility] Care Teams Orthophotography Technician Relationship Specialty Start Date End Date Ronel High NP [facility] [place] [address] PCP - General Nurse Practitioner 06/07/21
[2025-05-08] MEDS: KETOROLAC 15 MG/ML VIAL (*BKC) IV PUSH (07:42)
[2025-05-08] MEDS: ACETAMINOPHEN 500 MG TABLET 1000 MG PO ×3 (07:42→19:34)
--- NOTE | 2025-05-08 08:25 | WPDANESEPPF ---
Anes - Initial Pre Proc Eval Procedure: Operation Date: 05/08/25 09:00 Proposed Procedures p Robotic Assisted Total Laparoscopic Hysterectomy with Bilateral Salpingectomy - Evangelist Fierro MD Date/Time: 05/08/25 08:25 Surgeon: Evangelist Fierro MD Pre Op Diagnosis: Dysmenorrhea Patient Data Age: 44 Gender: F Height: 1.7 m Weight: 84.7 kg Allergies Allergy/AdvReac Type Severity Reaction Status Date / Time No Known Allergies Allergy Verified 05/01/25 09:37 Home Medications ?Medication ?Instructions ?Recorded ?Confirmed ?Type atomoxetine 80 mg capsule 80 mg PO DAILY 05/03/23 05/01/25 History (Strattera) olanzapine 5 mg disintegrating 5 mg PO QPM 11/03/23 05/01/25 History tablet trazodone 150 mg tablet 300 mg PO HS 11/03/23 05/01/25 History oxybutynin chloride 10 mg 20 mg (2 x 10 mg) PO DAILY #90 tabs 09/19/24 05/01/25 Rx tablet,extended release 24 hr bupropion HCl 300 mg 24 hr tablet, 300 mg PO BID 11/12/24 05/01/25 History extended release cariprazine 6 mg capsule (Vraylar) 6 mg PO .qod 11/12/24 05/01/25 History fluvoxamine 100 mg tablet 100 mg PO .1 11/12/24 05/01/25 History pilocarpine HCl 5 mg tablet 7.5 mg PO BID 02/21/25 05/01/25 History guanfacine 1 mg tablet 1 mg PO DAILY 04/22/25 05/01/25 History multivitamin-ferrous 1 tablet PO DAILY 05/01/25 05/01/25 History fumarate-folic acid 18 mg-400 mcg tablet (Centrum Women) ondansetron 4 mg disintegrating 4 mg PO DAILY PRN nausea 05/01/25 05/01/25 History tablet vitamin E 268 mg (400 unit) capsule 268 mg PO DAILY 05/01/25 05/01/25 History Patient hx anesthesia problems: none Family hx anesthesia problems: none Results Review: All pre-operative results and documents have been reviewed as part of the pre-operative evaluation. [facility] Past Medical History Medical History Arthritis Screening mammogram, encounter for Obesity (BMI 30-39.9) Diabetes Insomnia Tachycardia Hypertension High blood cholesterol Depression Anxiety Surgical History Surgical History History of colposcopy with cervical biopsy 10/31/02 H/O LEEP 09/07/05 History of placement of ear tubes as a child Family History Family History Father Diabetes mellitus Other Diabetes mellitus paternal aunt Breast cancer paternal aunt Ovary neoplasm maternal aunt Grandparent Breast cancer maternal grandmother Mother Asthma Social History Social History 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 Smoking packs per day: 1 Smoking cigarettes per day: 20.0 Years smoked: 15 Smoking pack-years: 15.00 Smoking status: Current every day smoker Tobacco type: cigarettes Alcohol intake: never Substance use: current Substance use type: marijuana Other substance usage details: ocassional Do You Feel Safe in your Home?: Yes Lack of Transportation: No Lack of Food: Never True Current Housing: I Have Housing Concerned About Future Housing: No Difficulty Paying Gas/Electric Bills: YES Difficulty Paying for Meds: YES Currently Unemployed: Decline to Answer Education: High School Diploma/GED Difficulty w/ Childcare or Family Care: No Living arrangements: other Additional living arrangements comments: single Occupation/Education: occupation Additional occupation/education comments: [employer] Gender identity (if verbalized by the patient): Female Sexual Orientation (if Verbalized by the Patient): Straight or Heterosexual Spiritual care concerns: No Agree to blood products: No Anes - Eval Final PreProcedure Day of Procedure 05/08/25 08:25 Patient weight: overweight Lungs: normal air movement Airway: Mallampati scale class II Neurological: alert and oriented Last oral intake: >/= 8 hours ASA classification: II Emergent: no Anesthetic plan: proceed Anesthesia type and monitoring: general ETT and standard monitoring Results Review: All pre-operative results and documents have been reviewed as part of the pre-operative evaluation. Smoker/vapes daily, no cp or sob. Informed Consent: The patient's anesthetic plan and its attendant risks and benefits were discussed with the patient/family/POA. Questions were solicited and answers provided to the satisfaction of the patient/family/POA.
--- NOTE | 2025-05-08 08:54 | WPDHPUPDATE1 ---
History and Physical Update Update Date/Time: 05/08/25 08:54 History and Physical has been reviewed, including an updated exam of the patient. There are NO changes in the patient's condition. Risks, benefits, and alternatives have been discussed and questions answered. Patient agrees to proceed with procedure.
[2025-05-08] MEDS: ceFAZolin 2 GM in SODIUM CHLORIDE 0.9% IV 50 ML 100 ML IVPB (08:59)
--- NOTE | 2025-05-08 10:10 | S_PTH ---
PATIENT: Natacha Romero LOC: [facility] U#:[id number] AGE/SX: 44/F ROOM: RE05/08/[address]: Evangelist Fierro MD : 1980 BED: DIS: 05/09/2025 SPEC #: [id number] RECD: 05/08/25 11:33 STATUS: SUKHWINDER REQ #: [id number] GREGG: 05/08/25 10:[address]: Evangelist Fierro DEPT: [facility] Surgical RECD BY: Amparo Beckwith ENTERED: 05/08/25 11:34 SP TYPE: Surgical OTHR DR: Albert Kwok MD Tissues: A - Uterus Procedures: Hematoxylin and Eosin Stain Gross and Microscopic Level 5
--- NOTE | 2025-05-08 10:15 | P.OP_ITS ---
Procedure Note - Detailed Date of Procedure 05/08/25 Pre-op Diagnosis 1. Menometrorrhagia 2. Dysmenorrhea Post-op Diagnosis Same (3. Left ovarian cyst) Procedure Performed 1. Robotic assisted total laparoscopic hysterectomy with bilateral salpingectomy 2. Robotic assisted left ovarian cystectomy Surgeon Evangelist Fierro MD Anesthesia General Findings Uterus tubes and ovaries without abnormality other than evidence of prior tubal ligation and left ovarian cyst Description of Procedure Patient prepped and draped in usual manner for this procedure. Cervical instruments were placed for uterine mobility throughout case. Abdominal trocar sites were marked and placed under direct visualization. Robotic system was attached to these trocars and instruments were placed under direct visualization. Surgeon moved to the console. Mesial salpinx bilaterally ca uterized and cut in segments of tube were removed. Ovarian cyst was removed off the left ovary in the bed of the biopsy site was cauterized and was hemostatic. Round ligament was cauterized and cut bilaterally and bladder flap was developed without difficulty. Posterior leaf the broad ligament was also incised to skeletonize the uterine vessels. Once this was done the vessels were cauterized and cut to remove vascularization to the uterus. Posterior cul-de-sac was then entered and this was carried circumferentially around the cervix and the uterus was delivered into the vagina. Cuff was then closed using V lock suture from the right to the midline and left angle midline good approximation hemostasis noted. There was minimal bleeding. Irrigation was undertaken. Celena was placed empirically over the vaginal cuff. At this point the procedure was considered terminated, gas was allowed to escape, trocars removed and incisions approximated 4-0 Monocryl. Patient was sent to recovery room in stable condition. Estimated Blood Loss 50 Drains No Packing No Pathology Yes Complications No immediate complications Condition Stable Disposition PACU [facility] Billing Surgery - Charge Forward: Surgery Billing
[2025-05-08] MEDS: LACTATED RINGERS 1,000 ML 30 ML IV CONT ×2 (10:36)
[2025-05-08] MEDS: fentaNYL CITRATE INJ (*CRX) 100 MCG/2 ML VIAL 25 MCG IV PUSH (10:36)
--- NOTE | 2025-05-08 10:52 | WPDANESEPPF ---
Anes - Initial Pre Proc Eval Procedure: Operation Date: 05/08/25 09:00 Proposed Procedures p Robotic Assisted Total Laparoscopic Hysterectomy with Bilateral Salpingectomy - Evangelist Fierro MD Date/Time: 05/08/25 10:52 Surgeon: Evangelist Fierro MD Pre Op Diagnosis: Dysmenorrhea Patient Data Age: 44 Gender: F Height: 1.7 m Weight: 84.7 kg Allergies Allergy/AdvReac Type Severity Reaction Status Date / Time No Known Allergies Allergy Verified 05/01/25 09:37 Home Medications ?Medication ?Instructions ?Recorded ?Confirmed ?Type atomoxetine 80 mg capsule 80 mg PO DAILY 05/03/23 05/01/25 History (Strattera) olanzapine 5 mg disintegrating 5 mg PO QPM 11/03/23 05/01/25 History tablet trazodone 150 mg tablet 300 mg PO HS 11/03/23 05/01/25 History oxybutynin chloride 10 mg 20 mg (2 x 10 mg) PO DAILY #90 tabs 09/19/24 05/01/25 Rx tablet,extended release 24 hr bupropion HCl 300 mg 24 hr tablet, 300 mg PO BID 11/12/24 05/01/25 History extended release cariprazine 6 mg capsule (Vraylar) 6 mg PO .qod 11/12/24 05/01/25 History fluvoxamine 100 mg tablet 100 mg PO .1 11/12/24 05/01/25 History pilocarpine HCl 5 mg tablet 7.5 mg PO BID 02/21/25 05/01/25 History guanfacine 1 mg tablet 1 mg PO DAILY 04/22/25 05/01/25 History multivitamin-ferrous 1 tablet PO DAILY 05/01/25 05/01/25 History fumarate-folic acid 18 mg-400 mcg tablet (Centrum Women) ondansetron 4 mg disintegrating 4 mg PO DAILY PRN nausea 05/01/25 05/01/25 History tablet vitamin E 268 mg (400 unit) capsule 268 mg PO DAILY 05/01/25 05/01/25 History Patient hx anesthesia problems: post op nausea/vomiting Family hx anesthesia problems: none Results Review: All pre-operative results and documents have been reviewed as part of the pre-operative evaluation. [facility] Past Medical History Medical History Arthritis Screening mammogram, encounter for Obesity (BMI 30-39.9) Diabetes Insomnia Tachycardia Hypertension High blood cholesterol Depression Anxiety Surgical History Surgical History History of colposcopy with cervical biopsy 10/31/02 H/O LEEP 09/07/05 History of placement of ear tubes as a child Family History Family History Father Diabetes mellitus Other Diabetes mellitus paternal aunt Breast cancer paternal aunt Ovary neoplasm maternal aunt Grandparent Breast cancer maternal grandmother Mother Asthma Social History Social History 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 Smoking packs per day: 1 Smoking cigarettes per day: 20.0 Years smoked: 15 Smoking pack-years: 15.00 Smoking status: Current every day smoker Tobacco type: cigarettes Alcohol intake: never Substance use: current Substance use type: marijuana Other substance usage details: ocassional Do You Feel Safe in your Home?: Yes Lack of Transportation: No Lack of Food: Never True Current Housing: I Have Housing Concerned About Future Housing: No Difficulty Paying Gas/Electric Bills: YES Difficulty Paying for Meds: YES Currently Unemployed: Decline to Answer Education: High School Diploma/GED Difficulty w/ Childcare or Family Care: No Living arrangements: other Additional living arrangements comments: single Occupation/Education: occupation Additional occupation/education comments: [employer] Gender identity (if verbalized by the patient): Female Sexual Orientation (if Verbalized by the Patient): Straight or Heterosexual Spiritual care concerns: No Agree to blood products: No Anes - Eval Final PreProcedure Day of Procedure 05/08/25 10:52 Patient weight: overweight Heart: regular rate and rhythm Lungs: clear to auscultation and normal air movement Airway: Mallampati scale class II Neurological: alert and oriented Last oral intake: >/= 8 hours ASA classification: III Emergent: no Anesthetic plan: proceed Anesthesia type and monitoring: general GIVS and standard monitoring Results Review: All pre-operative results and documents have been reviewed as part of the pre-operative evaluation. Informed Consent: The patient's anesthetic plan and its attendant risks and benefits were discussed with the patient/family/POA. Questions were solicited and answers provided to the satisfaction of the patient/family/POA.
--- NOTE | 2025-05-08 12:00 | PC.NURSE ---
This patient, Natacha Romero, was received from PACU via stretcher on 05/08/25 at 1200. Patient oriented to unit policies and routines.
[2025-05-08] MEDS: SIMETHICONE 80 MG TAB.CHEW PO ×2 (12:55→16:36)
[2025-05-08] MEDS: buPROPion HCL XL (24 HR) 150 MG TABCR 300 MG PO ×2 (12:55→20:53)
[2025-05-08] MEDS: KETOROLAC 30 MG/ML VIAL (*BKC) IV PUSH ×2 (12:56→19:33)
[2025-05-08] MEDS: DOCUSATE SODIUM 100 MG CAPSULE PO (16:36)
[2025-05-08] MEDS: OLANZapine ODT DISPERTAB 5 MG PO (20:52)
[2025-05-09] MEDS: ACETAMINOPHEN 500 MG TABLET 1000 MG PO ×2 (03:20→09:21)
[2025-05-09 03:30] VITALS: BP 127/78; PULSE 84; PULSE 90; RESP 16; TEMP 36.9; O2SAT 96
[2025-05-09 05:51] LABS: Hematocrit 41.1 % (37.0-47.0); Hemoglobin 13.4 g/dL (12.0-15.0); Immature Granulocyte Percent A 0.4 % (0-0.5); Lymphocytes Absolute Auto 2.88 K/mm3 (0.9-3.2); Mean Corpuscular HGB Conc 32.6 g/dl (32-36); Mean Corpuscular Hemoglobin 30.6 pg (26-34); Mean Corpuscular Volume 93.8 fl (80-100); Nucleated Red Blood Cells Absolute Auto 0.000 K/mm3 (0.0-0.012); Nucleated Red Blood Cells Perc 0.0 % (0.0-0.2); Platelet Count Result 258 k/mm3 (150-375); Red Blood Count 4.38 M/mm3 (4.2-5.4); White Blood Count 12.6 K/mm3 (4.5-10.0)
[2025-05-09 08:15] VITALS: BP 123/67; PULSE 92; RESP 16; TEMP 37.1; O2SAT 96
[2025-05-09] MEDS: DOCUSATE SODIUM 100 MG CAPSULE PO (09:20)
[2025-05-09] MEDS: VITAMIN E 400 UNIT CAPSULE PO (09:21)
[2025-05-09] MEDS: buPROPion HCL XL (24 HR) 150 MG TABCR 300 MG PO (09:21)
[2025-05-09] MEDS: MULTIVITAMINS /C LUTEIN (CENTRUM SILVER) TABLET *BKC 1 TAB PO (09:21)
[2025-05-09] MEDS: SIMETHICONE 80 MG TAB.CHEW PO (09:22)
[2025-05-09] MEDS: IBUPROFEN 600 MG TABLET PO (09:22)
== END 2025-05-09 12:35 | disposition home or self-care (01) ==
LOC: ANHSURGERY 06:47 → ANHOB2 12:17
PROVIDERS: PCP Emergency Medicine; Visit Provider Obstetrics & Gynecology
PROC: (CPT 58662; principal; 2025-05-08 09:00)
DX: N92.1 Excessive and frequent menstruation with irregular cycle (principal); N94.6 Dysmenorrhea, unspecified; N83.12 Corpus luteum cyst of left ovary; N80.03 Adenomyosis of the uterus; N83.8 Other noninflammatory disorders of ovary, fallopian tube and broad ligament; F17.210 Nicotine dependence, cigarettes, uncomplicated; F12.90 Cannabis use, unspecified, uncomplicated
CPT/HCPCS: 58662; 58571; S2900; 36415; 85025; 88307; 99199; J0690; A9270; J1100; J1885; J2003; J2250; J2405; J2704; J3010; J7030; J7120; Q9968